=== PATIENT | male | born 1935 | race Caucasian/White ===

== ENCOUNTER 2017-06-05 17:33 | Inpatient (IN) | payer OTHER, MEDICARE ==
[~2017-06-05] VITALS: Ht 172.7 cm; Wt 86.0 kg
--- NOTE | 2017-06-05 17:45 | ED AMS/SEIZURE/WEAK/DIZZY ---
History of Present Illness General Chief Complaint: Dizziness Stated Complaint: PALPITATIONS & LIGHTHEADED Vital Signs & Intake/Output Vital Signs & Intake/Output Vital Signs Date Time Temp Pulse Resp B/P B/P Pulse O2 O2 Flow FiO2 Mean Ox Delivery Rate 06/053 97.8 112 24 131/79 96 Room Air Progress Plan of Care: Orders Procedure Date/time Status MISTAKE 06/05 1736 Active Telemetry/Lubrication Equipment Servicer 06/05 1736 Active TROPONIN LEVEL 06/05 1736 Active MAGNESIUM 06/05 1736 Active COMPREHENSIVE METABOLIC PANEL 06/05 1736 Active CBC WITHOUT DIFFERENTIAL 06/05 1736 Active EKG 06/05 1736 Active Laboratory Tests 06/05/17 1748: Sodium Pending, Potassium Pending, Chloride Pending, Carbon Dioxide Pending, Anion Gap Pending, BUN Pending, Creatinine Pending, BUN/Creatinine Ratio Pending , Glucose Pending, Calcium Pending, Magnesium Pending, Total Bilirubin Pending, AST Pending, ALT Pending, Alkaline Phosphatase Pending, Troponin I Pending, Total Protein Pending, Albumin Pending, Globulin Pending, Albumin/Globulin Ratio Pending, CBC w Diff Pending, WBC Pending, RBC Pending, Hgb Pending, Hct Pending, MCV Pending, MCH Pending, MCHC Pending, RDW Pending, Plt Count Pending, MPV Pending Departure Departure Condition: Stable Referrals: Unknown (PCP/Family) Departure Forms: Customer Survey General Discharge Information
[2017-06-05 18:00] LABS: ABSOLUTE BASOPHIL COUNT 0 /CUMM (0.0-0.2); ABSOLUTE EOSINOPHIL COUNT 0.3 /CUMM (0.0-0.7); ABSOLUTE LYMPH COUNT 1.1 /CUMM (1.2-3.4); ABSOLUTE MONOCYTE COUNT 0.4 /CUMM (0.10-0.60); BASOPHIL % 0.3 % (0.0-2.0); EOSINOPHIL % 2.8 % (0-5); GRANULOCYTE % 83.7 % (42.2-75.2); HEMATOCRIT 43.9 % (42-52); MEAN CORPUSCULAR HGB 27.7 PG (27.0-31.0); MEAN CORPUSCULAR HGB CONC 32.3 G/DL (33.0-37.0); MEAN CORPUSCULAR VOLUME 85.6 FL (80.0-94.0); MEAN PLATELET VOLUME 7.3 FL (7.4-10.4); PLATELET COUNT 275 /CUMM (130-400); RBC DISTRIBUTION WIDTH 13.9 % (11.5-14.5); RED BLOOD CELL CT 5.13 /CUMM (4.70-6.10); WHITE BLOOD CELL COUNT 10.8 /CUMM (4.8-10.8)
--- NOTE | 2017-06-05 18:09 | ED CARDIAC/CP/PALPITATIONS ---
See Addendum History of Present Illness General Chief Complaint: Dizziness Stated Complaint: PALPITATIONS & LIGHTHEADED Source: patient, family, EMS Exam Limitations: no limitations Vital Signs & Intake/Output Vital Signs & Intake/Output Vital Signs Date Time Temp Pulse Resp B/P B/P Pulse O2 O2 Flow FiO2 Mean Ox Delivery Rate 06/05 1831 128 131/79 04 1753 97.8 112 24 131/79 96 Room Air Triage Note: BIBA FROM HOME, C/O INTERMITTANT DIZZINESS AND PA;PITATIONS X A FEW DAYS, WORSE TODAY. DNEIS CHEST PAIN OR SOB. PER EMS HEART RATE WAS 80-160 (A FIB) WS GIVEN LOPRESSOR 5 MG IV. Triage Nurses Notes Reviewed? yes HPI: Patient was taking out the garbage when he had a sudden onset of feeling very lightheaded. At that time he also felt a pounding sensation in his chest. He denies any chest pain. Patient went inside and laid down. The pounding sensation one-way however he continued to feel lightheaded. He eventually took a nitroglycerin to see if that would help but there was no relief. The symptoms lasted in total approximately an hour and a half. His called 911. Patient is currently asymptomatic. He denies any chest pain or lightheadedness. There is no palpitations. There is no shortness of breath. There is no dyspnea on exertion or orthopnea. Of note patient states that he is supposed to be on 75 mg of atenolol a day but a few years ago he decreased it on his own down to 25 mg. He has informed his doctor about this and his doctor is okay with it. EMS did give him 5 mg of IV Lopressor without any change in the heart rate. Past History Travel History Traveled to [place] past 21 day No Medical History Any Pertinent Medical History? see below for history Cardiovascular: AFIB, hypertension, hyperlipidemia Respiratory: N Surgical History Surgical History: CABG, LEFT BKA Psychosocial History What is your primary language Thai Tobacco Use: Quit >30 days ago ETOH Use: denies use Family History Hx Contributory? No Review of Systems Review of Systems Constitutional: Reports: no symptoms. EENTM: Reports: no symptoms. Respiratory: Reports: no symptoms. Cardiovascular: Reports: see HPI. GI: Reports: no symptoms. Genitourinary: Reports: no symptoms. Musculoskeletal: Reports: no symptoms. Skin: Reports: no symptoms. Neurological/Psychological: Reports: see HPI. Hematologic/Endocrine: Reports: no symptoms. Immunologic/Allergic: Reports: no symptoms. All Other Systems: Reviewed and Negative Physical Exam Physical Exam General Appearance: well developed/nourished, alert, awake, moderate distress Head: atraumatic, normal appearance Eyes: Bilateral: PERRL, EOMI. Ears, Nose, Throat: normal pharynx, normal ENT inspection, hearing grossly normal Neck: normal inspection, supple, full range of motion Respiratory: normal breath sounds, chest non-tender, no respiratory distress, lungs clear Cardiovascular: tachycardia, irregularly irregular Gastrointestinal: normal bowel sounds, soft, non-tender, no organomegaly Back: normal inspection Extremities: normal inspection, normal capillary refill, normal range of motion, no edema Neurologic/Psych: no motor/sensory deficits, awake, alert, oriented x 3, normal mood/affect Skin: intact, normal color, warm/dry Lymphatic: no anterior cervical rivas Core Measures ACS in differential dx? Yes CVA/TIA Diagnosis No Sepsis Present: No Sepsis Focused Exam Completed? No Progress Differential Diagnosis: atrial fibrillation, myocarditis, pericarditis, pneumonia, pneumothorax, pulmonary embolism Plan of Care: Orders Procedure Date/time Status XRY-PORTABLE CHEST XRAY 06/05 1809 Active MISTAKE 06/05 173 Active Telemetry/Sales Assistant [employer] 06/05 173 Active TROPONIN LEVEL 06/05 1737 Complete MAGNESIUM 06/05 173 Complete COMPREHENSIVE METABOLIC PANEL 06/05 173 Complete CBC WITHOUT DIFFERENTIAL 06/05 173 Complete EKG 06/05 173 Active Current Medications Sig/Marco A Start time Last Medication Dose Stop Time Status Admin Diltiazem HCl 10 MG ONCE ONE 06/05 1900 UNVr (Cardizem) 06/05 190 Metoprolol Tartrate 5 MG ONCE ONE 06/05 1830 UNVr 06/05 (Lopressor) 06/05 183 1831 Laboratory Tests 06/05/17 1748: Anion Gap 13, Estimated GFR 41 L, BUN/Creatinine Ratio 12.5, Glucose 113 H, Calcium 8.5, Magnesium 1.8, Total Bilirubin 0.5, AST 34, ALT 25, Alkaline Phosphatase 71, Troponin I < 0.01, Total Protein 6.8, Albumin 3.8, Globulin 3.0, Albumin/Globulin Ratio 1.3, CBC w Diff NO MAN DIFF REQ, RBC 5.13, MCV 85.6, MCH 27.7, MCHC 32.3 L, RDW 13.9, MPV 7.3 L, Gran % 83.7 H, Lymphocytes % 9.8 L, Monocytes % 3.4, Eosinophils % 2.8, Basophils % 0.3, Absolute Granulocytes 9.0 H, Absolute Lymphocytes 1.1 L, Absolute Monocytes 0.4, Absolute Eosinophils 0.3 , Absolute Basophils 0 Initial ED EKG: A FIB WITH ABERINCY, RVR, NO OLD TO COMAPRE Hand-Off Endorsed To: Jake Solorio MD Endorsed Time: 1899 Pending: labs Comments: EKG faxed Dr. Lantigua. Patient is refusing anticoagulation. Patient states he is to be on anticoagulation prior to having his left BKA but once that was done they took him off the Coumadin. Patient states he had multiple complications from anticoagulation. Patient verbally understands the risks of having a stroke while he is in A. fib. Departure Departure Disposition: STILL A PATIENT Condition: Stable Clinical Impression Primary Impression: New onset a-fib Referrals: Unknown Departure Forms: Customer Survey General Discharge Information Critical Care Note Critical Care Note Critical Care Time: mins: (120 MIN)
--- NOTE | 2017-06-05 19:17 | RADIOLOGY REPORT ---
EXAMINATION: CHEST 1 VIEW CLINICAL INFORMATION: Chest pain. COMPARISON: None. TECHNIQUE: An AP view of the chest is provided. FINDINGS: The cardiac silhouette is enlarged. Intact midline sternal wires are present. The mediastinal and hilar contours are unremarkable. There is a moderate left pleural effusion with associated airspace disease.. The osseous structures are unremarkable. IMPRESSION: Cardiomegaly. Moderate left pleural effusion with associated airspace disease.
[2017-06-05] MEDS ORDERED: PRINIVIL10 M1 PO (19:47)
[2017-06-05] MEDS ORDERED: ZOCOR40 M1 PO (19:48)
[2017-06-05] MEDS ORDERED: ATENOLOL25 M1 PO (19:48)
[2017-06-05] MEDS ORDERED: ISOSORBIDE MONO60 M1 PO (19:49)
[2017-06-05] MEDS ORDERED: ASPIRIN EC81 M1 PO (19:49)
[2017-06-05] MEDS ORDERED: ADVIL200 M1 PO (19:49)
[2017-06-05] MEDS ORDERED: TUMS200 MG PO (19:50)
--- NOTE | 2017-06-05 20:09 | History & Physical ---
Placido Schulz MD 06/05/17 2009: General Information and HPI MD Statement: I have seen and personally examined NATHAN CARLIN and documented this H&P. The patient is a 82 year old M who presented with a patient stated chief complaint of palpitations. Source of Information: patient Exam Limitations: no limitations History of Present Illness: 82 year old male with past medical history significant for CAD s/p CABG (1996), PCI with stents (2001), HTN, HLD, former smoker, L BKA (2006), and possible history of atrial fibrillation, presents with sudden onset of palpitations. The patient was in his usual state of health when today, as he was carrying the garbage out of his building complex, he developed acute onset palpitations. He describes it as if his heart was beating out of his chest. The patient also reported the simultaneous sensation of feeling lightheaded and faint, and denies associated chest pain, pressure, dyspnea, nausea, or diaphoresis. The patient reports that this is the third or so time hes experienced these symptoms in the past six months. Reportedly he has previously experienced chest pressure and pain transiently with prior episodes but not today. He has chronic rhinorrhea, post nasal drip, and cough productive of clear sputum for the past five months, reportedly from winter and dry indoor air. He was taking Mucinex D but thinks this medications has worsened his palpitations, chest pressure, and lightheadedness symptoms and self discontinued this medicine over a month ago. He is now using Flonase, which is reportedly helping. He was taking 75mg of atenolol for his hypertension but apparently has taken himself down to 25mg daily on his own, which he says he has done without any problems for the past two years. He has not seen a wig comber in over ten years. He has his primary care at the [facility] (Dr. Tinsley). He has recently been taking Ibuprofen for dental pain. He also had some abdominal pain and nausea the day before attributed to something he ate and not associated with his current symptoms. In the emergency department, he was found to be in rapid atrial fibrillation and given metoprolol 5mg IV x 2 and Cardizem 10mg IVP and admitted to telemetry for further management. Allergies/Medications Allergies: Coded Allergies: No Known Allergies (06/05/17) Home Med list Aspirin (Ecotrin*) 81 MG TABLET.DR 1 TAB PO QAM HEART/BLOOD (Reported) Atenolol 25 MG TABLET 1 TAB PO QPM BP (Reported) Calcium Carbonate (TUMS) (Unknown Strength) TAB.CHEW (Unknown Dose) PO PRN GI (Reported) Ibuprofen (Advil) 200 MG CAPSULE 2 CAP PO PRN PAIN/INFLAMMATION (Reported) Isosorbide Mononitrate (Isosorbide Mononitrate ER) 60 MG TAB.ER.24H 1 TAB PO QPM HEART (Reported) Lisinopril (Prinivil) 10 MG TABLET 1 TAB PO QAM BP (Reported) Simvastatin (Zocor*) 40 MG TABLET 1 TAB PO QPM CHOLESTEROL (Reported) Compliance With Home Meds: FAIR Past History Travel History Traveled to [place] past 21 day No Medical History Cardiovascular: AFIB, hypertension, hyperlipidemia Respiratory: N Surgical History Surgical History: CABG, LEFT BKA Past Family/Social History Psychosocial History Smoking Status: Former Smoker ETOH Use: denies use Functional Ability ADLs Independent: dressing, eating, toileting, bathing. Ambulation: cane Review of Systems Review of Systems Constitutional: Denies: chills, diaphoresis, fever, malaise, weakness. EENTM: Reports: no symptoms. Cardiovascular: Reports: palpitations, peripheral edema. Denies: chest pain, syncope. Respiratory: Reports: cough, sputum production. Denies: orthopnea, short of breath. GI: Reports: abdominal pain, nausea. Denies: diarrhea, vomiting. Genitourinary: Denies: dysuria, frequency. Musculoskeletal: Reports: no symptoms. Skin: Reports: no symptoms. Neurological/Psychological: Reports: no symptoms. Hematologic/Endocrine: Reports: no symptoms. Immunologic/Allergic: Reports: no symptoms. All Other Systems: Reviewed and Negative Exam & Diagnostic Data Last 24 Hrs of Vital Signs/I&O Vital Signs Date Time Temp Pulse Resp B/P B/P Pulse O2 O2 Flow FiO2 Mean Ox Delivery Rate 06/05 2156 138 120/70 06/06 2155 97.7 138 22 120/70 95 Room Air 06/05 2154 93 Room Air Room Air 06/05 2137 98.0 109 20 136/84 96 Room Air 06/05 1917 118 18 114/74 06/05 1902 111 141/74 06/05 1831 128 131/79 04/05 1753 97.8 112 24 131/79 96 Room Air Intake & Output 06/06 0800 04 0000 06/05 1600 Intake Total 350 Output Total 50 Balance 300 Intake, IV 250 Intake, Oral 100 Output, Urine 50 Patient 85.984 kg Weight Weight Bed scale Measurement Method Physical Exam General Appearance Alert, Oriented X3, Cooperative, No Acute Distress Neck Supple, No JVD, No thryomegaly Cardiovascular irregular rhythm with 2/6 apical systolic murmur Lungs Clear to Auscultation, Normal Air Movement Abdomen Normal Bowel Sounds, Soft, No Tenderness, No Masses Extremities L BKA, RLE 2+ pitting edema up to mid gilliam Last 24 Hrs of Labs/Sameer: Laboratory Tests 06/05/17 2355: Troponin I 0.04 06/05/17 1748: Anion Gap 13, Estimated GFR 41 L, BUN/Creatinine Ratio 12.5, Glucose 113 H, Calcium 8.5, Magnesium 1.8, Total Bilirubin 0.5, AST 34, ALT 25, Alkaline Phosphatase 71, Troponin I < 0.01, Total Protein 6.8, Albumin 3.8, Globulin 3.0, Albumin/Globulin Ratio 1.3, TSH &T3 &Free T4 Intrp 3.390, CBC w Diff NO MAN DIFF REQ, RBC 5.13, MCV 85.6, MCH 27.7, MCHC 32.3 L, RDW 13.9, MPV 7.3 L, Gran % 83.7 H, Lymphocytes % 9.8 L, Monocytes % 3.4, Eosinophils % 2.8, Basophils % 0.3, Absolute Granulocytes 9.0 H, Absolute Lymphocytes 1.1 L, Absolute Monocytes 0.4, Absolute Eosinophils 0.3, Absolute Basophils 0 Diagnostic Data EKG Results atrial fibrillation with RBBB CXR Results The cardiac silhouette is enlarged. Intact midline sternal wires are present. The mediastinal and hilar contours are unremarkable. There is a moderate left pleural effusion with associated airspace disease.. The osseous structures are unremarkable. Assessment/Plan Assessment: 82 year old male with past medical history significant for CAD s/p CABG (1996), PCI with stents (2001), HTN, HLD, former smoker, L BKA (2006), and possible history of atrial fibrillation, presents with sudden onset of palpitations. Atrial fibrillation with rapid ventricular response: Given Lopressor 5mg x 2 and Cardizem 10mg IVP Continue patient's atenolol 25mg daily, was previously on 75mg daily Discussed anticoagulation, patient reluctant despite knowledge of stroke risk Start Cardizem 2.5mg/hr IV infusion for rate control Heart rate goal less than 110 beats per minutes TSH wnl CAD h/o CABG/PCI: Check serial troponins and EKGs to evaluate for myocardial ischemia Cardiology consultation Obtain old records [facility] PCI and [facility] for CABG Check an transthoracic echocardiogram Monitor on telemetry Continue aspirin, statin and beta gisela Hold ACEi Continue nitrates Elevated creatinine: Creatinine 1.6, unknown baseline Unclear if acute kidney injury or chronic kidney disease Obtain records from PCP Dr. Corea for baseline renal function Recent NSAID use Hold ACEi for now Repeat renal function in the morning Avoid nephrotoxic agents HTN: Continue atenolol HLD: Continue statin therapy Heart healthy diet DVT ppx-heparin 5000 units subcutaneous q8h Full code As Ranked By This Provider Problem List: 1. New onset a-fib Core Measures/Misc (11/17) Acute Coronary Syndrome ACS Diagnosis: No Congestive Heart Failure Congestive Heart Failure Diagnosis No Cerebrovascular Accident CVA/TIA Diagnosis: No VTE (View Protocol) VTE Risk Factors Age>40 No Mechanical VTE Prophylaxis d/t N/A MechProphylax Ordered No VTE Pharm Prophylaxis d/t NA PharmProphylax ordered Sepsis (View protocol) Sepsis Present: No [facility] 06/05/17 2017: Resident Review Statement Resident Statement: examined this patient, discussed with chemistry intern, agreed with chemistry intern Other Findings: 82-year-old male with PMH significant for HTN, HLD, PAD s/p left BKA, HF with unknown EF%, CAD s/p CABG, and chronic cough who prsented with a chief complaint of palpitation and dizziness. Earlier today the patient had palpitation as he was carrying the garbage out of his building. A few minutes later he felt lightheaded and dizzy while he was driving his car for which she decided to visit the ED for further evaluation. The patient reported to similar episode in the past 6 months which she attributes to cough medicine that was prescribed to him at that time. He denies chest pain, shortness breath, diaphoresis, or dyspnea. He denies loss of consciousness or recent sickness. On admission: Vitals BP 97.8, HR 112, BP 131/79, sat 96 on RA. Labs: No leukocytosis, no anemia, normal potassium, calcium, sodium, and magnesium. Glucose 113. Normal liver function tests. Normal TSH. Negative troponin X2. Creatinine 1.6 and GFR 41. C-xray: Moderate left pleural effusion with associated airspace disease. Assessment 82-year-old male with multiple comorbidities that significant for heart conditions who presented with multiple episodes of palpitation and dizziness and was found to be on A. fib rhythm. His heart rate was controlled with 10 mg IV Cardizem followed by 5 mg Cardizem drip. The patient require anticoagulation as per chads score however he strongly refused anticoagulation even after risk and benefits was explained in details. Creatinine was found to be elevated up to 1.6, currently is not clear if this is CALEB or CKD given no documented kidney function in the past. Problem list * A. fib * CALEB or possibly CKD * CAD, HX CABG/PCI * HTN Plan * Monitoring telemetry * Rule out ACS with serial troponin and EKG * Continue Cardizem drip at straight 5 and titrated as needed * Echocardiogram * Hold off anticoagulation as per patient preference is * Repeat renal function in the morning * Cardiology consult with Dr. Lantigua * Continue aspirin, statin and beta gisela * Continue nitrate * Hold tomasz * Hold NSAIDs and all nephrotoxic agent. -Heart healthy diet -DVT ppx-heparin 5000 units subcutaneous q8h -Full code AmericoAgatara 06/06/17 0443: Attending MD Review Statement Attending Statement Attending MD Statement: examined this patient, discuss w/resident/PA/AGRICULTURAL EQUIPMENT OPERATOR, agreed w/resident/PA/AGRICULTURAL EQUIPMENT OPERATOR, reviewed EMR data (avail), reviewed images, amended to note Attending Assessment/Plan: CC: lightheaded PMH: CAD S/P CABG in 1996, S/P stent 2004, repeat cath showed persistent severe CAD not amendable for treatment, questionable rhythm abnormality in the past, HTN, HLD, left BKA, possible CKD Patient is very good historian he came in ER when his insisted to go for evaluation after his light headedness episode. This morning patient noticed lightheadedness and palpitations 2 times, 10 minutes apart. He was planning to watch it at home but his insisted to go to ER. Patient states that he has been having similar symptoms in the past, mostly at nighttime when he is getting up to go to bathroom he feels lightheaded, at one incidence he passed out and woke up on the floor, at other incidence he had associated chest pain going to his left arm, he took nitroglycerin and pain subsided. Either of these episodes patient did not go to ER. He attributed the symptoms to Mucinex D, stopped taking that medication approximately 10 to 15 days back and thought symptoms had resolved but it recurred again today. Patient denied any associated chest pain today, diaphoresis, nausea, vomiting, arm pain, actual passing out. Otherwise complete ROS unremarkable. Patient had decreased his dose of atenolol on his own few months back. Vitals: Afebrile, pulse in 120s, RR 24, blood pressure 131/79, saturating well on room air. On exam: A O 3, cooperative, no acute distress, neck supple, JVD normal, no lymphadenopathy, mucosa moist, no focal neurological deficit, left BKA, no dependent edema, no obvious skin rashes or inflammation CVS: S1-S2, irregular, tachycardia. RS: Clear to auscultate bilaterally. Abdomen: Soft, NT, ND, bowel sounds present. CXR: Cardiomegaly. Moderate left pleural effusion with associated airspace disease. Assessment and plan 82-year-old male with extensive past medical history presented in ER after 2 episodes of palpitations and lightheadedness, no associated chest pain, syncope, diaphoresis. Patient had been having similar episodes intermittently since last few months, mostly at nighttime when he is getting up to go to bathroom he feels lightheaded, at one incidence he passed out and woke up on the floor, at other incidence he had associated chest pain going to his left arm, he took nitroglycerin and pain subsided. Either of these episodes patient did not go to ER. Examination unremarkable but patient was tachycardic with A. fib with RVR on ECG. No overt signs of heart failure. Patient was unaware of diagnosis of A. fib so far, we do not have any comparison ECG, but this appears new onset atrial fibrillation. Patient agreed for rate control medication, but refused anticoagulation. Risks and benefits anticoagulation was discussed with him. We will get records from [facility], for his previous cardiac history. + A. fib with RVR + Hx of CAD S/P CABG in 1996, S/P stent 2004, repeat cath showed persistent severe CAD not amendable for treatment, questionable rhythm abnormality in the past, HTN, HLD, left BKA, possible CKD - Admit to telemetry - Continuous telemetry monitoring - Serial troponin and ECGs - Start Cardizem drip, titrate to heart rate 110 - 2-D echocardiogram in a.m. - Check TSH - Cardiology consult in a.m. - Obtain records from [facility] - No anticoagulation - Continue other home medications
[2017-06-05 21:56] VITALS: BP 120/70
[2017-06-05 21:57] VITALS: BP 120/70
--- NOTE | 2017-06-06 04:44 | Admission Certification ---
Admission Certification Certification Statement - As attending physician, I certify that at the time of - admission, based on clinical presentation, severity of - symptoms, need for further diagnostic testing and - therapeutic interventions, and risk of adverse outcomes - without in-hospital treatment, in my clinical assessment, - this patient requires an acute hospital stay for a minimum - of two nights or longer. I have also considered psychsocial - factors such as support system, advanced age, financial - issues, cognitive issues, and failed out-patient treatments, - past re-admission history, safety of patient, and lack of - compliance as applicable. Specific rationale supporting this admission is: New onset A. fib with RVR
--- NOTE | 2017-06-06 07:18 | PN- Housestaff ---
Patric SETH,[facility] 06/06/17 0718: Subjective Follow-up For: A Fib with RVR Tele-Events Since Last Visit: RATE 45-71 NSR Subjective: Mr Oneill was seen and examined this morning. He is resting comfortably in bed. Denies any issues overnight. States that he was unable to get much sleep owing to multiple interruptions. Does state that heart rate appears better controlled and is currently asymptomatic. Denies any fever, chills, nausea, vomiting. Denies any lightheadedness or palpitations. Mr Estrada has ordered breakfast this a.m. and is currently waiting for it to be delivered. Review of Systems Constitutional: Reports: see HPI. EENTM: Reports: see HPI. Objective Last 24 Hrs of Vital Signs/I&O Vital Signs Date Time Temp Pulse Resp B/P B/P Pulse O2 O2 Flow FiO2 Mean Ox Delivery Rate 06/05 2156 138 120/70 06/06 2155 97.7 138 22 120/70 95 Room Air 06/05 2154 93 Room Air Room Air 06/05 2137 98.0 109 20 136/84 96 Room Air 06/05 1917 118 18 114/74 06/05 1902 111 141/74 06/05 1831 128 131/79 06/05 1753 97.8 112 24 131/79 96 Room Air Intake & Output 06/06 1600 06/06 0800 06/06 0000 Intake Total 100 350 Output Total 200 50 Balance -100 300 Intake, IV 250 Intake, Oral 100 100 Output, Urine 200 50 Patient 85.984 kg Weight Weight Bed scale Measurement Method Physical Exam General Appearance: Alert, Oriented X3, Cooperative Skin: No Rashes Cardiovascular: Regular Rate, Normal S1, Normal S2 Lungs: Clear to Auscultation, Normal Air Movement Abdomen: Normal Bowel Sounds, Soft Neurological: Normal Speech Extremities: No Edema, Left BKA. Stump on Vascular: Normal Pulses Current Medications: Current Medications Sig/Marco A Start time Last Medication Dose Route Stop Time Status Admin Amiodarone HCl 400 MG BID 06/06 1000 AC PO Apixaban 2.5 MG BID 06/06 1000 AC PO Aspirin Buffered 81 MG QAM 06/06 1000 AC PO Atenolol 25 MG QPM 06/06 2200 CAN PO Atorvastatin Calcium 20 MG 1700 06/06 1700 AC PO Diltiazem HCl 125 MG Q24H 06/05 2315 DC 06/05 Dextrose/Water 100 ML IV 2348 Diltiazem HCl 0 .STK-MED ONE 06/05 1916 DC .ROUTE Diltiazem HCl 10 MG ONCE ONE 06/05 1900 DC 06/05 IV 06/05 190 191 Heparin Sodium 5,000 UNIT Q8 06/06 0600 DC 06/06 (Porcine) SC 0525 Isosorbide 60 MG QPM 06/06 2200 AC Mononitrate PO Lisinopril 10 MG QAM 06/06 1000 AC PO Metoprolol Tartrate 0 .STK-MED ONE 06/05 183 DC IV Metoprolol Tartrate 5 MG ONCE ONE 06/05 1830 DC 06/05 IV 06/05 183 183 Last 24 Hrs of Lab/Sameer Results Last 24 Hrs of Labs/Mics: Laboratory Tests 06/06/17 0622: Sodium Cancelled, Potassium Cancelled, Chloride Cancelled, Carbon Dioxide Cancelled, Anion Gap Cancelled, BUN Cancelled, Creatinine Cancelled, BUN/ Creatinine Ratio Cancelled 06/06/17 0622: Anion Gap 15, Estimated GFR 41 L, BUN/Creatinine Ratio 13.8, Troponin I 0.06 06/05/17 2355: Troponin I 0.04 06/05/17 1748: Anion Gap 13, Estimated GFR 41 L, BUN/Creatinine Ratio 12.5, Glucose 113 H, Calcium 8.5, Magnesium 1.8, Total Bilirubin 0.5, AST 34, ALT 25, Alkaline Phosphatase 71, Troponin I < 0.01, Total Protein 6.8, Albumin 3.8, Globulin 3.0, Albumin/Globulin Ratio 1.3, TSH &T3 &Free T4 Intrp 3.390, CBC w Diff NO MAN DIFF REQ, RBC 5.13, MCV 85.6, MCH 27.7, MCHC 32.3 L, RDW 13.9, MPV 7.3 L, Gran % 83.7 H, Lymphocytes % 9.8 L, Monocytes % 3.4, Eosinophils % 2.8, Basophils % 0.3, Absolute Granulocytes 9.0 H, Absolute Lymphocytes 1.1 L, Absolute Monocytes 0.4, Absolute Eosinophils 0.3, Absolute Basophils 0 Assessment/Plan Assessment: 82 year old male with past medical history significant for CAD s/p CABG (1996), PCI with stents (2002), HTN, HLD, former smoker, L BKA (2006), and possible history of atrial fibrillation, presents with sudden onset of palpitations. Atrial fibrillation with rapid ventricular response: Given Lopressor 5mg x 2 and Cardizem 10mg IVP Discussed anticoagulation, patient reluctant despite knowledge of stroke risk Start Cardizem 2.5mg/hr IV infusion for rate control, well controlled and appears over the course of the morning, he converted back to NSR. * Will attempt to keep rate in Normal Sinus. Amidarone 400 mg BID for 14 days. Then to be reduced to 200 mg BID. * Eliquis 2.5 mg BID, patient is agreeable to NOAC. Heart rate goal less than 110 beats per minutes TSH wnl CAD h/o CABG/PCI: Obtain old records both [facility] PCI and [facility] for CABG Check an transthoracic echocardiogram Monitor on telemetry Continue aspirin, statin and beta gisela Continue nitrates Elevated creatinine: Creatinine 1.6, unknown baseline Unclear if acute kidney injury or chronic kidney disease Obtain records from PCP Dr. Corea for baseline renal function Recent NSAID use Avoid nephrotoxic agents * Repear BEP 06/07/2017. HTN: Continue atenolol, to be discontinued, amiodarone can cause a decrease in blood pressure hence would air on the side of caution and discontinue atenolol. HLD: Continue statin therapy Heart healthy diet DVT ppx-transitioned to Eliquis. Full code Problem List: 1. New onset a-fib Pain Ratin Pain Location: No Pain Endorsed Pain Goal: Remain pain free Pain Plan: Tylenol PRN Tomorrow's Labs & Rationales: BEP: monitor Creatinine in the setting of ?Selvin Marcial 06/06/17 1049: Attending MD Review Statement Attending Statement Attending MD Statement: examined this patient, discuss w/resident/PA/TELEPHONE AD TAKER, agreed w/resident/PA/TELEPHONE AD TAKER, discussed with family, reviewed EMR data (avail), discussed with nursing, discussed with case mgmt, reviewed images, amended to note Attending Assessment/Plan: Patient here with afib uncontrolled with light headedness. Serial cardiac enzymes remain negative so far. Cardiology consulted and recommend obtaining previosu cardiac cath records from [place]. Patient is started on PO amiodarone and eliquis for a/c. Cont current care..
--- NOTE | 2017-06-06 09:32 | Cons- Cardiology ---
General Information and HPI Consulting Request Date of Consult: 06/06/17 Requested By: Yoan Driscoll MD History of Present Illness: Mr. Oneill is an 82 year old male with history of hypertension, dyslipidemia and coronary artery disease status post CABG in 1996 with stent placement in 2001. Over the past two months the patient has noted bouts of chest discomfort, lightheadedness and palpitations. He presented to the ER with a severe episode of rapid palpitations and was found to be in atrial fibrillation with increased heart rate wtih a bundle branch block. The patient does have a history of non- compliance with medications and office follow up. Allergies/Medications Allergies: Coded Allergies: No Known Allergies (06/05/17) Home Med List: Aspirin (Ecotrin*) 81 MG TABLET.DR 1 TAB PO QAM HEART/BLOOD (Reported) Atenolol 25 MG TABLET 1 TAB PO QPM BP (Reported) Calcium Carbonate (TUMS) (Unknown Strength) TAB.CHEW (Unknown Dose) PO PRN GI (Reported) Ibuprofen (Advil) 200 MG CAPSULE 2 CAP PO PRN PAIN/INFLAMMATION (Reported) Isosorbide Mononitrate (Isosorbide Mononitrate ER) 60 MG TAB.ER.24H 1 TAB PO QPM HEART (Reported) Lisinopril (Prinivil) 10 MG TABLET 1 TAB PO QAM BP (Reported) Simvastatin (Zocor*) 40 MG TABLET 1 TAB PO QPM CHOLESTEROL (Reported) Review of Systems Review of Systems: dental pain Past History Travel History Traveled to [place] past 21 day No Medical History Blood Transfusion Hx: No Neurological: dizziness EENT: NONE Cardiovascular: AFIB, hypertension, hyperlipidemia Respiratory: NONE Gastrointestinal: ACID REFLUX Hepatic: NONE Renal: NONE Musculoskeletal: falls Psychiatric: NONE Endocrine: NONE Blood Disorders: NONE Cancer(s): NONE 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 Home Smoking Status: Former Smoker ETOH Use: denies use Functional Ability ADLs Independent: dressing, eating, toileting, bathing. Ambulation: cane Exam & Diagnostic Data Vital Signs and I&O Vital Signs Date Time Temp Pulse Resp B/P B/P Pulse O2 O2 Flow FiO2 Mean Ox Delivery Rate 06/05 2156 138 120/70 06/06 2155 97.7 138 22 120/70 95 Room Air 04/05 2155 93 Room Air Room Air 06/058 98.0 109 20 136/84 96 Room Air 06/05 1917 118 18 114/74 06/05 1902 111 141/74 06/05 1831 128 131/79 06/05 1753 97.8 112 24 131/79 96 Room Air Intake & Output 06/06 1600 06/06 0800 04 0000 / 1600 06/05 0800 06/05 0000 Intake Total 100 350 Output Total 200 50 Balance -100 300 Intake, IV 250 Intake, Oral 100 100 Output, Urine 200 50 Patient 190 lb Weight Weight Bed scale Measurement Method Physical Exam: General: WD/obese male in NAD; alert and oriented x 3 HEENT: NC/AT, PERRL, EOMI Neck: no JVD, no carotid bruit Heart: RRR with ectopy and 2/6 systolic murmur Lungs: clear bilaterally ABdomen: soft, obese, NT, +ve bowel sounds Extremities: no edema, left BKA Assessment/Plan Assessment/Plan * This patient reportedly has a low EF but the details are not currently known. Obtain old records from the [place]. In addition to his echo report please find his latest cardiac catheterization from the [place]. * This patient has atrial fibrillation with increased heart rate. I suspect he has frequent paroxysms of this dysrhythmia which ultimately results in lightheadedness and at times chest pain. We will obtain a TSH, free T4, echocardiogram and cardiac enzymes. I think it is prudent to try and maintain a sinus rhythm in this patient who does not tolerate tachycardia well and is reluctant to be on chronic anticoagulation. In addition, he does have a low EF and renal dysfunction. Begin Amiodarone 400mg BID. We will load him for two week and then decrease the dose to 200mg daily. I do believe he should still be on chronic anticoagulation with Eliquis 2.5mg BID if he is willing to take it. Stop Atenolol. * This patient has evidence of myocardial ischemia. I am suspicious that his dental pain may be cardiac pain radiating toward his jaw. We will obtain his old cath report to determine if he is a reasonable candidate for revascularization. We will also consider a stess test. For now continue his Isosorbide, aspirin at 81mg daily, ACEI and statin. Consult Acknowledgment - Thank you for your consult request.
--- NOTE | 2017-06-06 10:42 | Patient Discharge Instructions ---
Discharge Instructions General Discharge Information You were seen/treated for: Atrial fibrillation. Special Instructions: Please follow-up with your primary care physician in 3-5 days. Please inform your primary care physician of the new medications added to your regimen. Please follow-up with her wholesale buyer within 7 days. We have provided you referral. Should you feel or experience any side effects from these medications please report to the emergency department. Should you feel any fever, chills, nausea, vomiting, come back to the emergency department. Diet Recommended Diet: Heart Healthy Activity Activity Self Limited: Yes (As Tolerated) Acute Coronary Syndrome Inclusion Criteria At DC or during hospital stay patient has or had the following: ACS DIAGNOSIS No Discharge Core Measures Meds if any: Prescribed or Continued at Discharge Meds if any: NOT Prescribed or Continued at Discharge Congestive Heart Failure Inclusion Criteria At DC or during hospital stay patient has or had the following: CHF DIAGNOSIS No Discharge Core Measures Meds if any: Prescribed or Continued at Discharge Meds if any: NOT Prescribed or Continued at Discharge Cerebrovascular accident Inclusion Criteria At DC or during hospital stay patient has or had the following: CVA/TIA Diagnosis No Discharge Core Measures Meds if any: Prescribed or Continued at Discharge Meds if any: NOT Prescribed or Continued at Discharge Venous thromboembolism Inclusion Criteria VTE Diagnosis No VTE Type NONE VTE Confirmed by (Test) NONE Discharge Core Measures - Per Current guidelines, there needs to be overlap - treatment for the first 5 days of Warfarin therapy. - If discharged on Warfarin prior to 5 days of - overlap therapy, the patient will need to be - assessed for post discharge needs including - *Post discharge parental anticoagulation - *Warfarin and/or parental anticoagulation education - *Follow up date to check INR post discharge At least 5 days overlap therapy as Inpatient No Meds if any: Prescribed or Continued at Discharge Note: Overlap Therapy is Warfarin and Anticoagulant Meds if any: NOT Prescribed or Continued at Discharge
[2017-06-06] MEDS ORDERED: AMIODARONE HCL200 M1 PO (10:56)
[2017-06-06] MEDS ORDERED: ELIQUIS2.5 M1 PO (10:56)
[2017-06-06 15:20] VITALS: BP 104/70; BP 1116/54
--- NOTE | 2017-06-06 17:28 | Discharge Summary ---
Visit Information Visit Dates Admission Date: 06/05/17 Discharge Date: 06/07/17 Hospital Course Course Attending Physician: Selvin Morales MD Primary Care Physician: Martita SETH,[facility] Course: Mr Oneill is an 82 year old male with past medical history significant for CAD s/p CABG (1996), PCI with stents (2001), HTN, HLD, former smoker, L BKA (2006), and possible history of atrial fibrillation, presents with sudden onset of palpitations. At the time of admission, the patients vitals T: 97.8, IA: 112, RR: 24. BP: 131/79, 96% on RA. He was admitted on the telemetry service and managed for the following issues: Atrial fibrillation with rapid ventricular response: Given Lopressor 5mg x 2 and Cardizem 10mg IVP Discussed anticoagulation, patient reluctant despite knowledge of stroke risk Start Cardizem 2.5mg/hr IV infusion for rate control, well controlled and appears over the course of the morning, he converted back to NSR. * Will attempt to keep rate in Normal Sinus. Amidarone 400 mg BID for 14 days. Then to be reduced to 200 mg BID. * Eliquis 2.5 mg BID, patient is agreeable to NOAC. Heart rate goal less than 110 beats per minutes TSH wnl CAD h/o CABG/PCI: Obtain old records both [facility] PCI and [facility] for CABG Check an transthoracic echocardiogram Monitor on telemetry Continue aspirin, statin and beta gisela Continue nitrates Elevated creatinine: Creatinine 1.6, unknown baseline Unclear if acute kidney injury or chronic kidney disease Obtain records from PCP Dr. Corea for baseline renal function Recent NSAID use Avoid nephrotoxic agents * Repear BEP 06/07/2017. HTN: After initiating Continue atenolol, to be discontinued, amiodarone can cause a decrease in blood pressure hence would air on the side of caution and discontinue atenolol. HLD: Patient was continued on a statin. Heart healthy diet DVT ppx-transitioned to Eliquis. Patient was a full code over the course of the admission. Allergies: Coded Allergies: No Known Allergies (06/05/17) Pertinent Lab Results: SERVICE DATE: 06/05/17 EXAM TYPE: CARD - ECHO (COMPLETE) W/CONTRAST CONCLUSIONS 1. Severely decreased EF of 25-30% with regional wall motion abnormalities as noted above. 2. Trace mitral regurgitation. 3. Trace tricuspid regurgitation. 4. Trace aortic regurgitation. 5. Trace pulmonic regurgitation. 6. Mild pulmonary hypertension. Norman Lantigua M.D. SERVICE DATE: 06/05/17 EXAM TYPE: RAD - XRY-PORTABLE CHEST XRAY IMPRESSION: Cardiomegaly. Moderate left pleural effusion with associated airspace disease. DICTATED BY: Zhao Young MD Disposition Summary Disposition Principal Diagnosis: A Fib with RVR Additional Diagnosis: HTN Elevated Cr. ? CALEB Discharge Disposition: home or self care Discharge Instructions General Discharge Information Code Status: Full Code Patient's Diet: Heart Healthy Patient's Activity: As Tolerated Follow-Up Instructions/Appts: Please follow-up with your primary care physician in 3-5 days. Please inform your primary care physician of the new medications added to your regimen. Please follow-up with her soap slabber within 7 days. We have provided you referral. Should you feel or experience any side effects from these medications please report to the emergency department. Should you feel any fever, chills, nausea, vomiting, come back to the emergency department. Medications at Discharge Discharge Medications: Stop taking the following medications: Atenolol (Atenolol) 25 MG TABLET ORAL Every night Continue taking these medications: Lisinopril (Prinivil) 10 MG TABLET 1 Tablet ORAL Every Morning Comments: Last Taken: 06/06/17 Time:12PM Simvastatin (Zocor*) 40 MG TABLET 1 Tablet ORAL Every night Comments: GIVEN ATORVASTATIN (LIPITOR) 20MG [facility] Last Taken: 06/06/17 Time:4PM Isosorbide Mononitrate (Isosorbide Mononitrate ER) 60 MG TAB.ER.24H 1 Tablet ORAL Every night Comments: Last Taken: 06/06/17 Time:1OPM Aspirin (Ecotrin*) 81 MG TABLET.DR 1 Tablet ORAL Every Morning Comments: Last Taken: 06/07/17 Time:0930 Ibuprofen (Advil) 200 MG CAPSULE 2 Capsule ORAL as needed for PAIN/INFLAMMATION Calcium Carbonate (TUMS) (Unknown Strength) TAB.CHEW Unknown Dose ORAL as needed for GI Comments: Last Taken: 06/06/17 Time:4:15PM Start taking the following new medications: Apixaban (Eliquis) 2.5 MG TABLET 2.5 Milligram ORAL TWICE DAILY Qty = 60 No Refills Instructions: . Comments: Last Taken: 06/07/17 Time:929 Amiodarone (Cordarone) 200 MG TAB 0 ORAL SEE INSTRUCTIONS Qty = 30 No Refills Instructions: .From 06/07 to 06/21, take two tab twice per day From 06/22. Take One Tab daily Comments: Last Taken: 06/07/17 Time:929 Copies To: Martita SETH,Jl [facility]oya; Grzegorz SETH PHD,Norman Lee
[2017-06-06 22:00] VITALS: BP 134/72
[2017-06-07 06:51] VITALS: BP 128/70
--- NOTE | 2017-06-07 08:44 | ECHOCARDIOGRAM REPORT ---
NATHAN CARLIN Age: 82 : 1935 Gender: M Exam Date: 06/06/2017 12:47 Exam Location: 1 [address] Ht (in): 68 Wt (lb): 190 BSA: 2.05 BP: 120 / 70 Ordering Physician: Briseida Rodriguez MD Referring Physician: Briseida Rodriguez MD Technologist: Gagandeep Rasmussen [facility] Room Number: 174-2 Indications: AFIB/FLUTTER Rhythm: Atrial fibrillation Technical Quality: technically limited with contrast FINDINGS Left Ventricle Normal left ventricular size and wall thickness. Severely decreased systolic function with anteroseptal, inferoseptal and apical akinesis superimposed on global hypokinesis. The ejection fraction is visually estimated at 25-30%. Right Ventricle The right ventricle is normal in size and function. Right Atrium The right atrium is normal in size. Left Atrium The left atrium is normal in size. The interatrial septum is intact. Mitral Valve The mitral valve is normal in structure and function. There is trace mitral regurgitation. Aortic Valve Structurally normal aortic valve without significant sclerosis or stenosis. There is trace aortic regurgitation. Tricuspid Valve The tricuspid valve is normal in structure and function. There is trace tricuspid regurgitation. Pulmonary artery systolic pressure is mildly elevated. Pulmonic Valve Structurally normal pulmonic valve. There is trace pulmonic regurgitation. Pericardium Normal pericardium without effusion. No pleural effusion. Great Vessels Normal aortic root dimension. The aortic arch and great vessels are well seen and are normal. CONCLUSIONS 1. Severely decreased EF of 25-30% with regional wall motion abnormalities as noted above. 2. Trace mitral regurgitation. 3. Trace tricuspid regurgitation. 4. Trace aortic regurgitation. 5. Trace pulmonic regurgitation. 6. Mild pulmonary hypertension. Norman Lantigua M.D. (Electronically Signed) Final Date: 07 June 2017 08:44 MEASUREMENTS (Male / Female) Normal Values 2D ECHO LV Diastolic Diameter PLAX 6.7 cm 4.2 - 5.9 / 3.9 - 5.3 cm LV Systolic Diameter PLAX 5.8 cm 2.1 - 4.0 cm LV Fractional Shortening PLAX 13.4 % 25 - 46 % LV Ejection Fraction 2D Teich 28.0 % IVS Diastolic Thickness 1.0 cm LVPW Diastolic Thickness 1.0 cm LV Relative Wall Thickness 0.3 LVOT Diameter 2.0 cm Aortic Root Diameter 2.8 cm LA Systolic Diameter LX 4.0 cm 3.0 - 4.0 / 2.7 - 3.8 cm LA Volume 70.0 cm 18 - 58 / 22 - 52 cm DOPPLER AV Peak Velocity 130.0 cm/s AV Peak Gradient 6.8 mmHg AV Mean Velocity 85.7 cm/s AV Mean Gradient 3.0 mmHg AV Velocity Time Integral 27.2 cm LVOT Peak Velocity 67.7 cm/s LVOT Peak Gradient 1.8 mmHg LVOT Mean Velocity 44.7 cm/s LVOT Mean Gradient 1.0 mmHg LVOT Velocity Time Integral 16.6 cm LVOT Stroke Volume 52.2 cm AV Area Cont Eq vti 1.9 cm AV Area Cont Eq pk 1.6 cm MV Peak Velocity 125.0 cm/s MV Peak Gradient 6.3 mmHg MV Mean Velocity 70.1 cm/s MV Mean Gradient 2.0 mmHg Mitral E Point Velocity 108.0 cm/s Mitral A Point Velocity 76.5 cm/s Mitral E to A Ratio 1.4 MV PHT Velocity 136.0 cm/s MV Deceleration Gonzales 1145.0 cm/s MV Pressure Half Time 35.6 ms MV Area PHT 6.2 cm MV Deceleration Time 194.0 ms TR Peak Velocity 319.0 cm/s TR Peak Gradient 40.7 mmHg Right Atrial Pressure 10.0 mmHg Pulmonary Artery Systolic Pressu 50.7 mmHg Right Ventricular Systolic Press 50.7 mmHg PV Peak Velocity 78.6 cm/s PV Peak Gradient 2.5 mmHg PV Mean Velocity 53.1 cm/s PV Mean Gradient 1.0 mmHg PV Velocity Time Integral 15.3 cm LV E' Lateral Velocity 5.6 cm/s Mitral E to LV E' Lateral Ratio 19.4
--- NOTE | 2017-06-07 08:49 | PN- Housestaff ---
Sabrina Montana 06/07/17 0848: Subjective Follow-up For: David monroe with a branch block Complaints: no complaints Tele-Events Since Last Visit: Sinus rhythm with first-degree AV block and bundle branch block, PVCs, heart rate ranges from 69-85 Subjective: Patient was seen and examined morning. He was sitting comfortably in chair without any significant complaints. He denied any chest pain or palpitations. There were no overnight significant telemetry events were noted. Patient was insisted to be discharged home today. Review of Systems Constitutional: Denies: diaphoresis. EENTM: Denies: double vision. Cardiovascular: Denies: edema. Respiratory: Denies: cough, hemoptysis. Gastrointestinal: Denies: bloating, diarrhea. Genitourinary: Denies: dysuria, hematuria. Objective Last 24 Hrs of Vital Signs/I&O Vital Signs Date Time Temp Pulse Resp B/P B/P Pulse O2 O2 Flow FiO2 Mean Ox Delivery Rate 06/07 924 63 112/48 / 0923 63 112/48 / 0651 98.2 64 20 128/70 93 Room Air / 2200 97.7 70 18 134/72 94 04/06 2103 70 134/72 04/06 2102 70 134/72 04/06 1520 97.8 70 20 1116/54 94 04/06 1152 62 120/70 04/06 1151 62 120/70 Physical Exam General Appearance: Alert, Oriented X3, Cooperative, No Acute Distress Cardiovascular: Regular Rate, Normal S2 Lungs: Normal Air Movement Abdomen: Soft, No Tenderness Neurological: Normal Speech Extremities: No Clubbing, No Cyanosis Current Medications: Current Medications Sig/Marco A Start time Last Medication Dose Route Stop Time Status Admin Amiodarone HCl 400 MG BID 06/06 1000 AC 06/07 PO 0923 Apixaban 2.5 MG BID / 1000 AC 06/07 PO 0924 Aspirin Buffered 81 MG QAM / 1000 AC 06/07 PO 0924 Atorvastatin Calcium 20 MG 1700 / 1700 AC 04/ PO 1614 Calcium Carbonate 500 MG ONCE ONE 06/06 2130 DC / PO 06/06 213 2118 Isosorbide 60 MG QPM / 2200 AC / Mononitrate PO 210 Lisinopril 10 MG QAM 1000 AC 06/06 PO 1151 Patient Medication 1 ED ONE ONE 06/06 1515 [facility] ED 06/06 1516 Last 24 Hrs of Lab/Sameer Results Last 24 Hrs of Labs/Mics: Laboratory Tests 06/07/17 0630: Anion Gap 12, Estimated GFR 41 L, BUN/Creatinine Ratio 18.8 Assessment/Plan Assessment: Patient is 82-year-old gentleman with past medical history significant for CAD status post CABG, PCI with stent placement, dyslipidemia, hypertension admitted with palpitations and lightheadedness and found to be in atrial fibrillation most likely new onset A. fib. Patient was admitted on telemetry floor and following issues were addressed Problem #1 new onset atrial fibrillation along with palpitations and tachycardia Patient was started on loading dose of amiodarone 200 mg twice a day which she is tolerating well and his heart rate is been reasonably controlled. Cardiology is on board Old records from [place] and [place] will be obtained We'll continue his aspirin and statins. Patient was also started on Eliquis 2.5 mg twice a day Problem #2 history of hypertension and dyslipidemia We will continue his home medications Problem #3 history of CAD status post CABG and PCI status post stent placement We will continue aspirin and Imdur Problem List: 1. New onset a-fib Pain Ratin Pain Location: Not applicable Pain Goal: Remain pain free Pain Plan: Tylenol Tomorrow's Labs & Rationales: Complete blood count, basic electrolyte panel Selvin Morales 06/07/17 1008: Attending MD Review Statement Attending Statement Attending MD Statement: examined this patient, discuss w/resident/PA/USABILITY STRATEGIST, agreed w/resident/PA/USABILITY STRATEGIST, discussed with family, reviewed EMR data (avail), discussed with nursing, discussed with case mgmt, reviewed images, amended to note Attending Assessment/Plan: Patient here with afib uncontrolled with light headedness. Serial cardiac enzymes remain negative so far. Cardiology consulted and recommend obtaining previous cardiac cath records from [place]. Patient is started on PO amiodarone and eliquis for a/c. Plan for stress test i/p vs o/p as per cardiology. Monitor heart rate and hemodynamcis.
--- NOTE | 2017-06-07 13:02 | PN- Cardiology ---
See Addendum Subjective Subjective: Patient reports that he is feeling well. He converted to sinus rhythm. No further palpitations or chest pain. No shortness of breath. No diaphoresis. No further lightheadedness or dizziness. Objective Vital Signs and I&Os Vital Signs Date Time Temp Pulse Resp B/P B/P Pulse O2 O2 Flow FiO2 Mean Ox Delivery Rate 06/07 924 63 112/48 06/07 0923 63 112/48 06/07 0651 98.2 64 20 128/70 93 Room Air 06/06 2200 97.7 70 18 134/72 94 / 2103 70 134/72 / 2102 70 134/72 06/06 1520 97.8 70 20 1116/54 94 Intake & Output 06/07 1600 06/07 0806/07 0000 06/06 1600 06/06 0800 06/06 0000 Intake Total 620 100 350 Output Total 200 50 Balance 620 -100 300 Intake, IV 20 250 Intake, Oral 600 100 100 Output, Urine 200 50 Patient 190 lb Weight Weight Bed scale Measurement Method Physical Exam: Gen: NAD HEENT: normal Lungs: clear to auscultation, normal resp. effort Heart: RRR, S1, S2, 2/6 systolic murmur Abdomen: Soft, nontender, no masses Extremities: No clubbing, cyanosis, or edema. Neuro: Alert and oriented x 3, cranial nerves intact Current Medications: Current Medications Sig/Marco A Start time Last Medication Dose Route Stop Time Status Admin Amiodarone HCl 400 MG BID 06/06 1000 AC 06/07 PO 0923 Apixaban 2.5 MG BID 06/06 1000 AC 06/07 PO 0924 Aspirin Buffered 81 MG QAM / 1000 AC / PO 0924 Atorvastatin Calcium 20 MG 1700 / 1700 AC 04/ PO 1614 Calcium Carbonate 500 MG ONCE ONE 06/06 2130 DC / PO 06/06 213 2118 Isosorbide 60 MG QPM 06/06 2200 AC 04/ Mononitrate PO 2102 Lisinopril 10 MG QAM / 1000 AC / PO 1151 Patient Medication 1 ED ONE ONE 06/06 1515 DC Teaching ED 06/06 1516 Results Last 48 Hrs of Labs/Mics: Laboratory Tests 06/07/17 0630: Anion Gap 12, Estimated GFR 41 L, BUN/Creatinine Ratio 18.8 06/06/17 0622: Sodium Cancelled, Potassium Cancelled, Chloride Cancelled, Carbon Dioxide Cancelled, Anion Gap Cancelled, BUN Cancelled, Creatinine Cancelled, BUN/ Creatinine Ratio Cancelled 06/06/17 0622: Anion Gap 15, Estimated GFR 41 L, BUN/Creatinine Ratio 13.8, Troponin I 0.06 06/05/17 2355: Troponin I 0.04 06/05/17 1748: Anion Gap 13, Estimated GFR 41 L, BUN/Creatinine Ratio 12.5, Glucose 113 H, Calcium 8.5, Magnesium 1.8, Total Bilirubin 0.5, AST 34, ALT 25, Alkaline Phosphatase 71, Troponin I < 0.01, Total Protein 6.8, Albumin 3.8, Globulin 3.0, Albumin/Globulin Ratio 1.3, TSH &T3 &Free T4 Intrp 3.390, CBC w Diff NO MAN DIFF REQ, RBC 5.13, MCV 85.6, MCH 27.7, MCHC 32.3 L, RDW 13.9, MPV 7.3 L, Gran % 83.7 H, Lymphocytes % 9.8 L, Monocytes % 3.4, Eosinophils % 2.8, Basophils % 0.3, Absolute Granulocytes 9.0 H, Absolute Lymphocytes 1.1 L, Absolute Monocytes 0.4, Absolute Eosinophils 0.3, Absolute Basophils 0 Recent Imaging Studies: Echocardiogram 06/07/17: 1. Severely decreased EF of 25-30% with regional wall motion abnormalities as noted above. 2. Trace mitral regurgitation. 3. Trace tricuspid regurgitation. 4. Trace aortic regurgitation. 5. Trace pulmonic regurgitation. 6. Mild pulmonary hypertension. Assessment/Plan Assessment/Plan Assessment: 1. Paroxysmal atrial fibrillation converted to sinus 2. Left ventricular systolic dysfunction, with LVEF 25-30% 3. CAD, status post CABG Plan: * Continue Eliquis 2.5 mg p.o. twice daily * Continue low-dose aspirin * Continue other cardiac medication * Okay for discharge from cardiac standpoint * Follow up with Dr. Bar within 1 week Continue telemetry? Yes
[2017-06-07 14:24] VITALS: BP 116/58
== END 2017-06-07 15:15 | DRG 309 ==
LOC: DELPENDDIS → ERH 17:33 → 1NO 19:17 → ERHI 19:17 → ENRESERV 20:06 → ENTRNSPT 20:59 → EDTRNSPTSTS 21:19 → 1NO 21:29 → CMPTRNSPT 21:40 → 1NO 06-06 11:31 → ENPENDDIS 06-06 15:13 → 1NO 06-06 16:04 → ENPENDDIS 06-07 14:05 → 1NO 06-07 15:15
PROVIDERS: Physician Assistant Medical
DX: I48.91 Unspecified atrial fibrillation (principal); I50.22 Chronic systolic (congestive) heart failure; I27.20 Pulmonary hypertension, unspecified; I11.0 Hypertensive heart disease with heart failure; I25.9 Chronic ischemic heart disease, unspecified; Z95.1 Presence of aortocoronary bypass graft; I45.10 Unspecified right bundle-branch block; E78.5 Hyperlipidemia, unspecified; I25.10 Atherosclerotic heart disease of native coronary artery without angina pectoris; I44.0 Atrioventricular block, first degree; I49.3 Ventricular premature depolarization; K21.9 Gastro-esophageal reflux disease without esophagitis; Z89.512 Acquired absence of left leg below knee
CPT/HCPCS: 1NP; 1NSP; 36592; 71045; 82436; 93005; 93010; 96374; 96375; 99291; C8929; J1644; Q9957

== ENCOUNTER 2017-06-08 13:36 | Inpatient (IN) | payer OTHER, MEDICARE ==
[~2017-06-08] VITALS: Ht 175.3 cm; Wt 85.2 kg
[~2017-06-08 13:36] MED LIST: ADVIL200 M1 PO; AMIODARONE HCL200 M1 PO; ASPIRIN EC81 M1 PO; ATENOLOL25 M1 PO; ELIQUIS2.5 M1 PO; ISOSORBIDE MONO60 M1 PO; PRINIVIL10 M1 PO; TUMS200 MG PO; ZOCOR40 M1 PO
--- NOTE | 2017-06-08 14:11 | ED CARDIAC/CP/PALPITATIONS ---
History of Present Illness General Chief Complaint: Dyspnea (COPD, CHF, Other) Stated Complaint: SOB, +NAUSEA, NEW MEDS: ELIQUIS, AMIODARONE Source: patient, family, old records Exam Limitations: no limitations Vital Signs & Intake/Output Vital Signs & Intake/Output Vital Signs Date Time Temp Pulse Resp B/P B/P Pulse O2 O2 Flow FiO2 Mean Ox Delivery Rate 06/08 1455 155 140/60 06/08 1414 156 146/64 06/08 1407 156 18 146/64 95 Room Air 06/08 1401 95 Room Air 06/08 1343 96.0 64 20 114/80 95 Room Air Room Air Allergies Coded Allergies: No Known Allergies (06/05/17) Reconcile Medications Amiodarone (Cordarone) 200 MG TAB 0 PO SEE ADMIN CRITERIA HR .From 06/07 to 06/21, take two tab twice per day From 06/22. Take One Tab daily Apixaban (Eliquis) 2.5 MG TABLET 2.5 MG PO BID Anticoagulation . Aspirin (Ecotrin*) 81 MG TABLET.DR 1 TAB PO QAM HEART/BLOOD (Reported) Calcium Carbonate (TUMS) (Unknown Strength) TAB.CHEW (Unknown Dose) PO PRN GI (Reported) Ibuprofen (Advil) 200 MG CAPSULE 2 CAP PO PRN PAIN/INFLAMMATION (Reported) Isosorbide Mononitrate (Isosorbide Mononitrate ER) 60 MG TAB.ER.24H 1 TAB PO QPM HEART (Reported) Lisinopril (Prinivil) 10 MG TABLET 1 TAB PO QAM BP (Reported) Simvastatin (Zocor*) 40 MG TABLET 1 TAB PO QPM CHOLESTEROL (Reported) Triage Note: TRIQAGE: RECENT ADMISSION - PLACED ON ELIQUIS AND AMIODARONE FOR RECENT DIAGNOSIS OF AFIB. BP NORMOTENSIVE 114/80 AND HEART RATE 64. HAS MANY QUESTIONS REGARDING DISCHARGE MEDICATIONS C/O +NAUSEA AND DYSPNEA. ROOM AIR SPO2 95%. Triage Nurses Notes Reviewed? yes HPI: Patient was discharged just yesterday after admission for new onset atrial fibrillation. Patient converted to sinus rhythm while in the hospital and he was discharged on amiodarone as well as a course. This morning he took his amiodarone and L) 10 nauseous. Patient then noticed that his heart was beating fast again so he came back to the emergency department for evaluation he denies any chest pain or chest tightness. The nausea has resolved. He denies any shortness of breath. Past History Travel History Traveled to [place] past 21 day No Medical History Any Pertinent Medical History? 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 No Review of Systems Review of Systems Constitutional: Reports: no symptoms. EENTM: Reports: no symptoms. Respiratory: Reports: no symptoms. Cardiovascular: Reports: see HPI, palpitations. GI: Reports: see HPI, nausea. Genitourinary: Reports: no symptoms. Musculoskeletal: Reports: no symptoms. Skin: Reports: no symptoms. Neurological/Psychological: Reports: no symptoms. Hematologic/Endocrine: Reports: no symptoms. Immunologic/Allergic: Reports: no symptoms. All Other Systems: Reviewed and Negative Physical Exam Physical Exam General Appearance: well developed/nourished, alert, awake, mild distress Head: atraumatic, normal appearance Eyes: Bilateral: PERRL, EOMI. Ears, Nose, Throat: normal pharynx, normal ENT inspection, hearing grossly normal Neck: normal inspection, supple, full range of motion Respiratory: normal breath sounds, chest non-tender, no respiratory distress, lungs clear Cardiovascular: normal peripheral pulses, tachycardia, irregularly irregular Gastrointestinal: normal bowel sounds, soft, non-tender, no organomegaly Back: normal inspection, normal range of motion Extremities: normal inspection, normal capillary refill, normal range of motion, no edema Neurologic/Psych: no motor/sensory deficits, awake, alert, oriented x 3, normal mood/affect Skin: intact, normal color, warm/dry Lymphatic: no anterior cervical rivas Core Measures ACS in differential dx? No CVA/TIA Diagnosis No Sepsis Present: No Sepsis Focused Exam Completed? No Progress Differential Diagnosis: AMI, atrial fibrillation, hyperkalemia, myocarditis, pericarditis, pneumonia, pneumothorax Plan of Care: Orders Procedure Date/time Status Heart Healthy Diet 06/[address] in observation 06/08 1454 Active ED Holding Orders 06/08 1454 Active Vital Signs 06/08 1454 Active Code Status 06/08 1454 Active XRY-PORTABLE CHEST XRAY 06/08 1410 Active TROPONIN LEVEL 06/08 1410 Complete COMPREHENSIVE METABOLIC PANEL 06/08 141 Complete CBC WITHOUT DIFFERENTIAL 06/08 141 Complete EKG 06/08 1344 Active Current Medications Sig/Marco A Start time Last Medication Dose Stop Time Status Admin Diltiazem HCl 125 MG Q12H 06/08 1445 AC (Cardizem DRIP) Dextrose/Water 100 ML (D5W) Laboratory Tests 06/08/17 1415: Anion Gap 14, Estimated GFR 39 L, BUN/Creatinine Ratio 16.5, Glucose 88, Calcium 9.6, Total Bilirubin 0.7, AST 22, ALT 26, Alkaline Phosphatase 67, Troponin I 0.02, Total Protein 7.2, Albumin 4.2, Globulin 3.0, Albumin/Globulin Ratio 1.4, CBC w Diff NO MAN DIFF REQ, RBC 5.28, MCV 85.0, MCH 27.9, MCHC 32.8 L, RDW 14.2, MPV 7.5, Gran % 78.8 H, Lymphocytes % 12.5 L, Monocytes % 6.4, Eosinophils % 1.9, Basophils % 0.4, Absolute Granulocytes 6.8 H, Absolute Lymphocytes 1.1 L, Absolute Monocytes 0.6, Absolute Eosinophils 0.2, Absolute Basophils 0 Initial ED EKG: AFIB, RBBB, nonspecific ST T wave chg Prior EKG: unchanged Rhythm Strip: atrial fibrillation Departure Departure Disposition: STILL A PATIENT Condition: Stable Clinical Impression Primary Impression: Atrial fibrillation with RVR Referrals: Martita SETH,Jl Montoya (PCP/Family) Departure Forms: Customer Survey General Discharge Information Observation Note Spoke With: Crystal SETH,Magy Physician Advisor Notified: ANDRÉS SETH,AMADO [facility] Patient In: Non-ED OBS Care Area Rationale for Observation: My rational for observation is as follows [TELE MONITORING,RATE CONTROL, CARDIZEM DRIP, CARDIOLOGY CONSULT]. Critical Care Note Critical Care Note Critical Care Time: mins: (90 MIN)
[2017-06-08 14:25] LABS: ABSOLUTE BASOPHIL COUNT 0 /CUMM (0.0-0.2); ABSOLUTE EOSINOPHIL COUNT 0.2 /CUMM (0.0-0.7); ABSOLUTE GRANULOCYTE CT 6.8 /CUMM (1.4-6.5); ABSOLUTE LYMPH COUNT 1.1 /CUMM (1.2-3.4); ABSOLUTE MONOCYTE COUNT 0.6 /CUMM (0.10-0.60); BASOPHIL % 0.4 % (0.0-2.0); EOSINOPHIL % 1.9 % (0-5); GRANULOCYTE % 78.8 % (42.2-75.2); MEAN CORPUSCULAR HGB 27.9 PG (27.0-31.0); MEAN CORPUSCULAR HGB CONC 32.8 G/DL (33.0-37.0); MEAN PLATELET VOLUME 7.5 FL (7.4-10.4); PLATELET COUNT 294 /CUMM (130-400); RBC DISTRIBUTION WIDTH 14.2 % (11.5-14.5); RED BLOOD CELL CT 5.28 /CUMM (4.70-6.10); WHITE BLOOD CELL COUNT 8.6 /CUMM (4.8-10.8)
--- NOTE | 2017-06-08 15:18 | RADIOLOGY REPORT ---
EXAMINATION: XR PORTABLE CHEST CLINICAL INFORMATION: Chest pain. COMPARISON: Chest radiography 06/05/2017. TECHNIQUE: Portable frontal view of the chest was obtained. FINDINGS: Persistent left pleural effusion and adjacent basilar opacification. Right lung is well expanded and clear. No pulmonary edema or pneumothorax. Mediastinal contours are unchanged. Sternotomy wires. No acute osseous abnormalities. IMPRESSION: Persistent moderate left pleural effusion and adjacent basilar opacification, not significantly changed compared to prior exam.
--- NOTE | 2017-06-08 15:36 | History & Physical ---
[facility]27: General Information and HPI MD Statement: I have seen and personally examined NATHAN CARLIN and documented this H&P. The patient is a 82 year old M who presented with a patient stated chief complaint of nausea and shortness of breath since this morning []. Source of Information: patient, old records Exam Limitations: no limitations History of Present Illness: 82 YO M ex-smoker PMH significant for CAD s/p CABG (1996), PCI with stents (2001 ), HTN, HLD, left BKA (2006), and proxysmal atrial fibrillation, presents with chief complaint of nausea and shortness of breath since this morning. According to patient he was discharged yesterday from hospital and he was taking his medication regularly. Patient reported that he was taking his morning pills at night and evening pills at 3pm. This morning patient noticed having severe nausea and shortness of breath. Patient reported that he was not able to take his medication this morning. He denied chest pain, palpitation, vomiting, lightheadedness, loss of consciousness, trauma, abdominal pain, diarrhea, cough, sputum, chills, fever, constipation, dizziness and dysuria. Patient reported that he went to get his medication at the pharmacy and he was not able to catch his breath. Patient came to the hospital for evaluation. After coming to the hospital his shortness of breath has been resolved. Last echocardiogram was done on June 2017 that showed ejection fraction 25-30% with regional wall motion abnormality and mild pulmonary hypertension. ED course: Vitals: Temperature 96.0, pulse 64, respiratory rate 20, blood pressure 114/80, oxygen saturation 95% room air. Labs: WBC count 8.6, hemoglobin 14.8, hematocrit 45.0, platelet count 294, sodium 144, potassium 4.7, BUN 28, creatinine 1.7, BUN/creatinine ratio 16.5, glucose 88, calcium 9.6, AST 22, ALT 26, troponin 0.02 In ED patient was found to have A. fib with rapid ventricular response and he was started on Cardizem drip. Allergies/Medications Allergies: Coded Allergies: No Known Allergies (06/05/17) Home Med list Amiodarone (Cordarone) 200 MG TAB 0 PO SEE ADMIN CRITERIA HR .From 06/07 to 06/21, take two tab twice per day From 06/22. Take One Tab daily Apixaban (Eliquis) 2.5 MG TABLET 2.5 MG PO BID Anticoagulation . Aspirin (Ecotrin*) 81 MG TABLET. 1 TAB PO QAM HEART/BLOOD (Reported) Calcium Carbonate (TUMS) (Unknown Strength) TAB.CHEW (Unknown Dose) PO PRN GI (Reported) Ibuprofen (Advil) 200 MG CAPSULE 2 CAP PO PRN PAIN/INFLAMMATION (Reported) Isosorbide Mononitrate (Isosorbide Mononitrate ER) 60 MG TAB.ER.24H 1 TAB PO QPM HEART (Reported) Lisinopril (Prinivil) 10 MG TABLET 1 TAB PO QAM BP (Reported) Simvastatin (Zocor*) 40 MG TABLET 1 TAB PO QPM CHOLESTEROL (Reported) Past History Travel History Traveled to [place] past 21 day No Medical History Neurological: dizziness EENT: NONE Cardiovascular: AFIB, hypertension, hyperlipidemia Respiratory: NONE Gastrointestinal: ACID REFLUX Hepatic: NONE Renal: NONE Musculoskeletal: falls Psychiatric: NONE Endocrine: NONE Blood Disorders: NONE Cancer(s): NONE 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 Ambulation: cane Review of Systems Review of Systems Constitutional: Denies: chills, fever. EENTM: Reports: no symptoms. Cardiovascular: Denies: chest pain, palpitations. Respiratory: Reports: short of breath. Denies: cough, sputum production. GI: Reports: nausea. Denies: abdominal pain, constipation, diarrhea. Genitourinary: Reports: no symptoms. Musculoskeletal: Reports: no symptoms. Neurological/Psychological: Reports: no symptoms. Exam & Diagnostic Data Last 24 Hrs of Vital Signs/I&O Vital Signs Date Time Temp Pulse Resp B/P B/P Pulse O2 O2 Flow FiO2 Mean Ox Delivery Rate 06/08 1455 155 140/60 06/08 1455 155 140/60 06/08 1414 156 146/64 06/08 1407 156 18 146/64 95 Room Air 06/08 1401 95 Room Air 06/08 1343 96.0 64 20 114/80 95 Room Air Room Air Intake & Output 06/08 1600 06/08 0800 06/08 0000 Intake Total Output Total Balance Patient 190 lb Weight Weight Reported by Patient Measurement Method Physical Exam General Appearance Alert, Oriented X3, Cooperative, No Acute Distress Skin No Rashes Skin Temp/Moisture Exam: Warm/Dry Sepsis Skin Exam (color): Normal for Ethnicity HEENT Atraumatic, PERRLA, EOMI Neck Supple Cardiovascular Normal S1, Normal S2 Lungs B/L decreased breath sounds Abdomen Soft, No Tenderness Neurological Normal Speech, Normal Tone Extremities Left leg BKA, Right leg edema Last 24 Hrs of Labs/Sameer: Laboratory Tests 06/08/17 1415: Anion Gap 14, Estimated GFR 39 L, BUN/Creatinine Ratio 16.5, Glucose 88, Calcium 9.6, Total Bilirubin 0.7, AST 22, ALT 26, Alkaline Phosphatase 67, Troponin I 0.02, Total Protein 7.2, Albumin 4.2, Globulin 3.0, Albumin/Globulin Ratio 1.4, CBC w Diff NO MAN DIFF REQ, RBC 5.28, MCV 85.0, MCH 27.9, MCHC 32.8 L, RDW 14.2, MPV 7.5, Gran % 78.8 H, Lymphocytes % 12.5 L, Monocytes % 6.4, Eosinophils % 1.9, Basophils % 0.4, Absolute Granulocytes 6.8 H, Absolute Lymphocytes 1.1 L, Absolute Monocytes 0.6, Absolute Eosinophils 0.2, Absolute Basophils 0 Assessment/Plan Assessment: 82 YO M ex-smoker PMH significant for CAD s/p CABG (1996), PCI with stents (2001 ), HTN, HLD, left BKA (2006), and proxysmal atrial fibrillation, presents with chief complaint of nausea and shortness of breath since this morning. We will admit the patient on telemetry floor and will follow for the following problems: A. fib with rapid ventricular response; -Continue Cardizem drip @ 10ml/h to keep the heart rate less than 110. -Continue Eliquis 2.5 mg twice a day -Cardiology consult -Patient's echocardiogram one-week back showed ejection fraction 2530 percent. History of CAD status post CABG: -Continue aspirin -Continue isosorbide mononitrate -Continue lisinopril History of hypertension hyperlipidemia: -Continue lisinopril -Continue Lipitor DVT prophylaxis: -Mechanical and patient is already on Eliquis CODE STATUS; Full code As Ranked By This Provider Problem List: 1. Atrial fibrillation with RVR Core Measures/Misc (11/17) Acute Coronary Syndrome ACS Diagnosis: No Congestive Heart Failure Congestive Heart Failure Diagnosis No Cerebrovascular Accident CVA/TIA Diagnosis: No VTE (View Protocol) VTE Risk Factors Age>40 No Mechanical VTE Prophylaxis d/t N/A MechProphylax Ordered No VTE Pharm Prophylaxis d/t NA PharmProphylax ordered Sepsis (View protocol) Sepsis Present: No Brandy Chow 06/08/17 1721: Resident Review Statement Resident Statement: examined this patient, discussed with internal audit manager, agreed with internal audit manager Other Findings: Patient is 82 years old male with PMH of htn, HLD, CABG and new onset a fib came to ER with chief complain of difficulty breathing and feeling unwell. In ER he was found to be in a fib with RVR (HR 155). Patient was discharged yesterday on 400 mg amiodarone and eliquis however patient states that he took am dose of amio at 9 am and pm dose at 3pm. He does not report of any difficulty breathing right now, denies any chest pain, palpitations, headache, dizzines, abdominal discomfort, burning micturation. His initial EKG showed a fib with RVR. EF 25-30% from last time. CXR Persistent moderate left pleural effusion and adjacent basilar opacification, not significantly changed compared to prior exam. Assseement and Plan: Will admit patient to telemetry floor Will continue amiodarone 400 mg bID and eliquis. Discussed the patient with Dr. Palacios, we will add metoprolol 25 BID. Patient is currently on 10 mcg of cardizem drip, will titrate accordingly DVT ppx eliquis Full code. Crystal SETH,Magy 06/08/172046: Attending MD Review Statement Attending Statement Attending MD Statement: examined this patient, discuss w/resident/PA/C4 PLANNER, agreed w/resident/PA/C4 PLANNER, reviewed EMR data (avail) Attending Assessment/Plan: Patient seen and examined. Plan of care discussed with the medical team and the patient. Available lab work and radiology test reports were reviewed. In summary this is a 82 years old male ex-smoker PMH significant for CAD s/p CABG ( 1996), PCI with stents (2001), HTN, HLD, left BKA (2006), and proxysmal atrial fibrillation, who was discharged yesterday after a brief stay for rapid A. fib who presents with chief complaint of nausea and shortness of breath since this morning. Patient was started on amiodarone upon discharge. He returns today with rapid A. fib history of nausea and mild difficulty breathing. His heart was 156 but with stable blood pressure. He was afebrile. Saturation 94% room air. Chest exam shows few scattered crepitations. Patient was given IV Cardizem drip which is stabilizes heart rate close to 65/m. Chest x-ray shows persistent left pleural effusion with possible atelectasis. His creatinine is 1.7 which is close to his baseline and his first troponin was negative. Assessment plan * Rapid A. fib * Nausea and sweating likely associated with rapid A. fib * Chronic renal insufficiency * Pleural effusion * Basal atelectasis Plan Continue Cardizem drip Cardiac consult done Will rule out for troponin 3 sets Continue amiodarone Once patient is stabilized he'll be converted to oral Cardizem
[2017-06-08 18:02] VITALS: BP 126/62
--- NOTE | 2017-06-08 20:20 | Cons- Cardiology ---
General Information and HPI Consulting Request Date of Consult: 06/08/17 Requested By: Crystal SETH,Magy Reason for Consult: Atrial fibrillation History of Present Illness: The patient is an 82-year-old male with history of CAD, status post CABG, left ventricular systolic dysfunction, who was admitted June 06 with atrial fibrillation with rapid ventricular rate. He converted to sinus rhythm. He was started on p.o. amiodarone and discharged to home. He presents with complaint of nausea and shortness of breath. No chest pain. No palpitations. No lightheadedness or dizziness. No nausea or vomiting. No diaphoresis. He was found in the emergency department to be in atrial fibrillation with rapid ventricular rate and was placed on observation. Diltiazem drip was started to control the rate. While on the diltiazem drip he converted back to sinus rhythm. Allergies/Medications Allergies: Coded Allergies: No Known Allergies (06/05/17) Home Med List: Amiodarone (Cordarone) 200 MG TAB 0 PO SEE ADMIN CRITERIA HR .From 06/07 to 06/21, take two tab twice per day From 06/22. Take One Tab daily Apixaban (Eliquis) 2.5 MG TABLET 2.5 MG PO BID Anticoagulation . Aspirin (Ecotrin*) 81 MG TABLET.DR 1 TAB PO QAM HEART/BLOOD (Reported) Calcium Carbonate (TUMS) (Unknown Strength) TAB.CHEW (Unknown Dose) PO PRN GI (Reported) Ibuprofen (Advil) 200 MG CAPSULE 2 CAP PO PRN PAIN/INFLAMMATION (Reported) Isosorbide Mononitrate (Isosorbide Mononitrate ER) 60 MG TAB.ER.24H 1 TAB PO QPM HEART (Reported) Lisinopril (Prinivil) 10 MG TABLET 1 TAB PO QAM BP (Reported) Simvastatin (Zocor*) 40 MG TABLET 1 TAB PO QPM CHOLESTEROL (Reported) Review of Systems Review of Systems: No rash. No tremor. No melena. All other systems were reviewed, and were noted to be negative. 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 Family history was reviewed with the patient and was negative for any factors contributing to the current admission. Psychosocial History Smoking Status: Former Smoker ETOH Use: denies use Illicit Drug Use: denies illicit drug use Functional Ability ADLs Independent: dressing, eating, toileting, bathing. Ambulation: cane Exam & Diagnostic Data Vital Signs and I&O Vital Signs Date Time Temp Pulse Resp B/P B/P Pulse O2 O2 Flow FiO2 Mean Ox Delivery Rate 06/08 1802 97.5 60 20 126/62 94 Room Air 06/08 1734 97.3 57 18 148/68 99 Room Air 06/08 1600 96.0 57 15 124/60 96 Room Air Room Air 06/08 1455 155 140/60 06/08 1455 155 140/60 06/08 1414 156 146/64 06/08 1407 156 18 146/64 95 Room Air 06/08 1401 95 Room Air 06/08 1343 96.0 64 20 114/80 95 Room Air Room Air Intake & Output 06/08 1600 06/08 0800 08 0000 06/07 1600 06/07 0800 06/07 0000 Intake Total Output Total Balance Patient 190 lb Weight Weight Reported by Patient Measurement Method Physical Exam: Gen: The patient is in no acute distress HEENT: Normal nose, ears, and oropharynx. Pupils equal bilaterally. Conjunctiva normal. Neck: Supple with no JVD, no masses, and no thyromegaly Lungs: Clear to auscultation with normal respiratory effort Heart: RRR, S1, S2, 2 out of 6 systolic murmur. No peripheral edema, 2+ pulses in the lower extremities bilaterally Abdomen: Soft, nontender, no masses. No hepatomegaly. No splenomegaly Extremities: No clubbing or cyanosis. Normal muscle strength in the upper and lower extremities Skin: Normal skin turgor with no skin ulcers or lesions noted. Neuro: Cranial nerves intact. Sensation intact Psych: Alert and oriented x 3 with appropriate affect Labs/Sameer Results: Laboratory Tests 06/08 1415 Chemistry Sodium (137 - 145 mmol/L) 144 Potassium (3.5 - 5.1 mmol/L) 4.7 Chloride (98 - 107 mmol/L) 106 Carbon Dioxide (22 - 30 mmol/L) 24 Anion Gap (5 - 16) 14 BUN (9 - 20 mg/dL) 28 H Creatinine (0.7 - 1.2 mg/dL) 1.7 H Estimated GFR (>60 ml/min) 39 L BUN/Creatinine Ratio (7 - 25 %) 16.5 Glucose (65 - 99 mg/dL) 88 Calcium (8.4 - 10.2 mg/dL) 9.6 Total Bilirubin (0.2 - 1.3 mg/dL) 0.7 AST (17 - 59 U/L) 22 ALT (21 - 72 U/L) 26 Alkaline Phosphatase (< 127 U/L) 67 Troponin I (<0.11 ng/ml) 0.02 Total Protein (6.3 - 8.2 g/dL) 7.2 Albumin (3.5 - 5.0 g/dL) 4.2 Globulin (1.9 - 4.2 gm/dL) 3.0 Albumin/Globulin Ratio (1.1 - 2.2 %) 1.4 Hematology CBC w Diff NO MAN DIFF REQ WBC (4.8 - 10.8 /CUMM) 8.6 RBC (4.70 - 6.10 /CUMM) 5.28 Hgb (14.0 - 18.0 G/DL) 14.8 Hct (42 - 52 %) 45.0 MCV (80.0 - 94.0 FL) 85.0 MCH (27.0 - 31.0 PG) 27.9 MCHC (33.0 - 37.0 G/DL) 32.8 L RDW (11.5 - 14.5 %) 14.2 Plt Count (130 - 400 /CUMM) 294 MPV (7.4 - 10.4 FL) 7.5 Gran % (42.2 - 75.2 %) 78.8 H Lymphocytes % (20.5 - 51.1 %) 12.5 L Monocytes % (1.7 - 9.3 %) 6.4 Eosinophils % (0 - 5 %) 1.9 Basophils % (0.0 - 2.0 %) 0.4 Absolute Granulocytes (1.4 - 6.5 /CUMM) 6.8 H Absolute Lymphocytes (1.2 - 3.4 /CUMM) 1.1 L Absolute Monocytes (0.10 - 0.60 /CUMM) 0.6 Absolute Eosinophils (0.0 - 0.7 /CUMM) 0.2 Absolute Basophils (0.0 - 0.2 /CUMM) 0 Diagnostic Data EKG Results EKG tracing is independently reviewed, and reveals atrial fibrillation with ventricular response of 135, right bundle branch block, inferior infarct age undetermined CXR Results Persistent moderate left pleural effusion and adjacent basilar opacification, not significantly changed compared to prior exam. Other Results Echocardiogram 06/07/17: 1. Severely decreased EF of 25-30% with regional wall motion abnormalities as noted above. 2. Trace mitral regurgitation. 3. Trace tricuspid regurgitation. 4. Trace aortic regurgitation. 5. Trace pulmonic regurgitation. 6. Mild pulmonary hypertension. Assessment/Plan Assessment/Plan Assessment: 82-year-old male with history of CAD, status post CABG, left ocular systolic dysfunction previously admitted with atrial fibrillation and discharged on amiodarone after converting to sinus rhythm. He now presents with recurrent atrial for ablation with rapid ventricular rate. The rate was brought under control on IV diltiazem, and he subsequently converted to sinus rhythm. Recommendations: * Continue oral amiodarone * Start metoprolol 50 mg p.o. twice daily for rate control in the event of further atrial fibrillation * Discontinue diltiazem drip * Continue Eliquis Consult Acknowledgment - Thank you for your consult request.
--- NOTE | 2017-06-08 20:47 | Admission Certification ---
Admission Certification Certification Statement - As attending physician, I certify that at the time of - admission, based on clinical presentation, severity of - symptoms, need for further diagnostic testing and - therapeutic interventions, and risk of adverse outcomes - without in-hospital treatment, in my clinical assessment, - this patient requires an acute hospital stay for a minimum - of two nights or longer. I have also considered psychsocial - factors such as support system, advanced age, financial - issues, cognitive issues, and failed out-patient treatments, - past re-admission history, safety of patient, and lack of - compliance as applicable. Specific rationale supporting this admission is: Rapid A. fib
[2017-06-08 22:01] VITALS: BP 106/50
[2017-06-09 07:01] VITALS: BP 130/64
--- NOTE | 2017-06-09 07:16 | PN- Housestaff ---
Subjective Follow-up For: David Mohan Nausea and Vomiting Tele-Events Since Last Visit: NSR 22 - 91 Subjective: Mr Oneill was seen and examined this morning, he is resting comfortably in bed. Denies any issues overnight. States that he has not been very happy with the beginning of amiodarone. Since that since been discharged she has felt multiple episodes of nausea, flatulence and GI upset. Denies any fever, chills, vomiting denies any shortness of breath or weakness. He has been tolerating by mouth intake well. Requests that we should come up with an alternative medication. Review of Systems Constitutional: Reports: see HPI. Objective Last 24 Hrs of Vital Signs/I&O Vital Signs Date Time Temp Pulse Resp B/P B/P Pulse O2 O2 Flow FiO2 Mean Ox Delivery Rate 06/09 700 97.5 72 12 130/64 95 Room Air 06/08 220 97.7 59 20 106/50 95 Room Air 06/08 2110 57 110/60 06/08 2109 57 110/60 06/08 1802 97.5 60 20 126/62 94 Room Air 08 1734 97.3 57 18 148/68 99 Room Air /08 1600 96.0 57 15 124/60 96 Room Air Room Air /08 1455 155 140/60 04/08 1455 155 140/60 /08 1414 156 146/64 04/08 1407 156 18 146/64 95 Room Air /08 1401 95 Room Air /08 1343 96.0 64 20 114/80 95 Room Air Room Air Intake & Output 06/09 1600 06/09 0800 06/09 0000 Intake Total 110 320 Output Total Balance 110 320 Intake, IV 10 Intake, Oral 100 320 Patient 85.814 kg Weight Weight Bed scale Measurement Method Physical Exam General Appearance: Alert, Oriented X3, Cooperative Cardiovascular: Regular Rate, Normal S1, Normal S2 Lungs: Clear to Auscultation Abdomen: Normal Bowel Sounds, Soft, No Tenderness Neurological: Normal Speech, Normal Tone, Cranial Nerves 3-12 NL Extremities: Left BKA Vascular: No Edema Current Medications: Current Medications Sig/Marco A Start time Last Medication Dose Route Stop Time Status Admin Amiodarone HCl 400 MG BID 06/08 2199 AC 06/08 PO 2108 Apixaban 2.5 MG BID 06/08 2199 AC 06/08 PO 2109 Aspirin Buffered 81 MG QAM 06/09 1000 AC PO Atorvastatin Calcium 20 MG 1700 06/08 1700 AC 06/08 PO 2110 Calcium Carbonate 500 MG DAILY 06/09 1000 AC PO Calcium Carbonate 500 MG ONCE ONE 06/09 0330 DC 06/09 PO 06/09 0331 0329 Diltiazem HCl 10 MG ONCE ONE 06/08 1445 DC 06/08 IV PUSH 06/08 1446 1455 Diltiazem HCl 125 MG Q12H 06/08 1445 DC 06/08 Dextrose/Water 100 ML IV 1521 Diltiazem HCl 10 MG ONCE ONE 06/08 1415 DC 06/08 IV PUSH 06/08 1416 1414 Hyoscyamine 0.125 MG ONCE ONE 06/09 0815 DC PO 06/09 0816 Isosorbide 60 MG QPM 06/08 2200 AC 06/08 Mononitrate PO 2110 Magnesium Oxide 400 MG ONE ONE 06/09 0900 DC PO 06/09 0901 Metoprolol Tartrate 50 MG BID 06/09 0325 DC PO Last 24 Hrs of Lab/Sameer Results Last 24 Hrs of Labs/Mics: Laboratory Tests 06/09/17 0350: Anion Gap 14, Estimated GFR 36 L, BUN/Creatinine Ratio 18.9, Magnesium 1.8, Troponin I 0.04 06/08/17 1415: Anion Gap 14, Estimated GFR 39 L, BUN/Creatinine Ratio 16.5, Glucose 88, Calcium 9.6, Total Bilirubin 0.7, AST 22, ALT 26, Alkaline Phosphatase 67, Troponin I 0.02, Total Protein 7.2, Albumin 4.2, Globulin 3.0, Albumin/Globulin Ratio 1.4, CBC w Diff NO MAN DIFF REQ, RBC 5.28, MCV 85.0, MCH 27.9, MCHC 32.8 L, RDW 14.2, MPV 7.5, Gran % 78.8 H, Lymphocytes % 12.5 L, Monocytes % 6.4, Eosinophils % 1.9, Basophils % 0.4, Absolute Granulocytes 6.8 H, Absolute Lymphocytes 1.1 L, Absolute Monocytes 0.6, Absolute Eosinophils 0.2, Absolute Basophils 0 Assessment/Plan Assessment: DRAFT 82 YO M ex-smoker PMH significant for CAD s/p CABG (1996), PCI with stents (2001 ), HTN, HLD, left BKA (2006), and proxysmal atrial fibrillation, presents with chief complaint of nausea and shortness of breath since this morning. Continue the patient on telemetry floor and will follow for the following problems: A. fib with rapid ventricular response; -Continue Cardizem drip @ 10ml/h to keep the heart rate less than 110, consider transition to PO Cardizem -Continue Eliquis 2.5 mg twice a day -Cardiology consult History of CAD status post CABG: -Continue aspirin -Continue isosorbide mononitrate -Continue lisinopril History of hypertension hyperlipidemia: -Continue lisinopril -Continue Lipitor DVT prophylaxis: -Mechanical and patient is already on Eliquis Nausea -Levsin BID CODE STATUS; Full code Problem List: 1. Atrial fibrillation with RVR 2. Nausea Pain Ratin Pain Location: No Pain Pain Goal: Remain pain free Pain Plan: Tylenol PRN Tomorrow's Labs & Rationales: CBC BEP
--- NOTE | 2017-06-09 11:09 | PN-Observation ---
Patric SETH,[facility] 06/09/17 1109: Observation Note Observation Note _ I have personally examined NATHAN CARLIN. him disposition is uncertain at this time. Before a determination can be made, he requires continued observation for the following reasons he needs to be observed to ensure adequate rate and rhythm medication regiment has finalized. Failure to do so may result in complications which may result from atrial fibrillation including uncontorlled tachycardia, stroke, hemodynamic instability and possibly . Assessment/Plan Medical Assessment: 82 YO M ex-smoker PMH significant for CAD s/p CABG (1996), PCI with stents (2001 ), HTN, HLD, left BKA (2006), and proxysmal atrial fibrillation, presents with chief complaint of nausea and shortness of breath since.. Continue the patient on telemetry floor and will follow for the following problems: A. fib with rapid ventricular response; -Fabrizio in NSR. -May consider transitioning to Oral Cardizem. -Continue Eliquis 2.5 mg twice a day -Cardiology consult, await recommendations on Amiodarone (patient does not want to be on this medication) History of CAD status post CABG: -Continue aspirin -Hold lisinopril, due to renal Insufficiency, BEP in am History of hypertension hyperlipidemia: -Continue Lipitor DVT prophylaxis: -Mechanical Eliquis Nausea -Levsin BID CODE STATUS; Full code Problem List: 1. Atrial fibrillation with RVR Subjective Follow-up For: A. Fib Nausea and Vomiting Tele-Events Since Last Visit: NSR 57 - 77 Subjective: Mr Carlin was seen and examined this morning, he is resting comfortably in bed. Denies any issues overnight. States that he has not been very happy with the beginning of amiodarone. Since that since been discharged she has felt multiple episodes of nausea, flatulence and GI upset. Denies any fever, chills, vomiting denies any shortness of breath or weakness. He has been tolerating by mouth intake well. Requests that we should come up with an alternative medication. Review of Systems Constitutional: Reports: see HPI. Objective Last 24 Hrs of Vital Signs/I&O Vital Signs Date Time Temp Pulse Resp B/P B/P Pulse O2 O2 Flow FiO2 Mean Ox Delivery Rate 06/09 0701 97.5 72 12 130/64 95 Room Air 06/08 2201 97.7 59 20 106/50 95 Room Air / 2110 57 110/60 / 2109 57 110/60 /08 1802 97.5 60 20 126/62 94 Room Air 06/08 1734 97.3 57 18 148/68 99 Room Air 06/08 1600 96.0 57 15 124/60 96 Room Air Room Air 06/08 1455 155 140/60 06/08 1455 155 140/60 06/08 1414 156 146/64 06/08 1407 156 18 146/64 95 Room Air 06/08 1401 95 Room Air 06/08 1343 96.0 64 20 114/80 95 Room Air Room Air Intake & Output 06/09 1600 06/09 0800 06/09 0000 Intake Total 110 320 Output Total Balance 110 320 Intake, IV 10 Intake, Oral 100 320 Patient 85.814 kg Weight Weight Bed scale Measurement Method Physical Exam General Appearance: Alert, Oriented X3, Cooperative Cardiovascular: Regular Rate, Normal S1, Normal S2 Lungs: Clear to Auscultation Abdomen: Normal Bowel Sounds, Soft, No Tenderness Neurological: Normal Speech Extremities: No Edema, LEFT BKA Vascular: Normal Pulses Current Medications: Current Medications Sig/Marco A Start time Last Medication Dose Route Stop Time Status Admin Amiodarone HCl 400 MG BID 06/08 2199 AC 06/08 PO 210 Apixaban 2.5 MG BID 06/08 2199 AC 06/09 PO 1006 Aspirin Buffered 81 MG QAM 06/09 1000 AC 06/09 PO 1006 Atorvastatin Calcium 20 MG 1700 06/08 1700 AC 06/08 PO 2110 Calcium Carbonate 500 MG DAILY 06/09 1000 AC 06/09 PO 1006 Calcium Carbonate 500 MG ONCE ONE 06/09 0330 DC 06/09 PO 06/09 0331 0329 Diltiazem HCl 10 MG ONCE ONE 06/08 1445 DC 06/08 IV PUSH 06/08 1446 1455 Diltiazem HCl 125 MG Q12H 06/08 1445 DC 06/08 Dextrose/Water 100 ML IV 1521 Diltiazem HCl 10 MG ONCE ONE 06/08 1415 DC 06/08 IV PUSH 06/08 1416 1414 Hyoscyamine 0.125 MG ONCE ONE 06/09 0815 DC 06/09 PO 06/09 0816 1009 Isosorbide 60 MG QPM 06/08 2200 AC 06/08 Mononitrate PO 2110 Magnesium Oxide 400 MG ONE ONE 06/09 899 DC 06/09 PO 06/09 900 1005 Metoprolol Tartrate 50 MG BID 06/09 324 DC PO Last 24 Hrs of Labs/Mics: Laboratory Tests 06/09/17 0350: Anion Gap 14, Estimated GFR 36 L, BUN/Creatinine Ratio 18.9, Magnesium 1.8, Troponin I 0.04 06/08/17 1415: Anion Gap 14, Estimated GFR 39 L, BUN/Creatinine Ratio 16.5, Glucose 88, Calcium 9.6, Total Bilirubin 0.7, AST 22, ALT 26, Alkaline Phosphatase 67, Troponin I 0.02, Total Protein 7.2, Albumin 4.2, Globulin 3.0, Albumin/Globulin Ratio 1.4, CBC w Diff NO MAN DIFF REQ, RBC 5.28, MCV 85.0, MCH 27.9, MCHC 32.8 L, RDW 14.2, MPV 7.5, Gran % 78.8 H, Lymphocytes % 12.5 L, Monocytes % 6.4, Eosinophils % 1.9, Basophils % 0.4, Absolute Granulocytes 6.8 H, Absolute Lymphocytes 1.1 L, Absolute Monocytes 0.6, Absolute Eosinophils 0.2, Absolute Basophils 0 Selvin Morales 06/09/17 1114: Attending Addendum Attending Brief Note Patient placed on observation status for rapid afib with rvr controlled with iv cardizem. Cardiology consulted and rate controlled now with anticoagulation. Patient can be discharged if rate controlled and cardilogy ok for discharge. Serial cardiac enzymes negative for [facility]. Previous cath reports to be obtained from [place]. ECHO with EF 25%.
[2017-06-09 14:58] VITALS: BP 120/66
--- NOTE | 2017-06-09 20:47 | PN- Cardiology ---
Subjective Subjective: * Breathing is improved today. No chest pain. * creatinine 1.8 * left pleural effusion Objective Vital Signs and I&Os Vital Signs Date Time Temp Pulse Resp B/P B/P Pulse O2 O2 Flow FiO2 Mean Ox Delivery Rate 06/09 1458 97.6 68 20 120/66 95 06/09 1000 72 130/64 06/09 0701 97.5 72 12 130/64 95 Room Air 06/08 2201 97.7 59 20 106/50 95 Room Air 06/08 2110 57 110/60 06/08 2109 57 110/60 Intake & Output 06/09 1600 06/09 0800 06/09 0000 06/08 1600 06/08 0800 06/08 0000 Intake Total 600 110 320 Output Total Balance 600 110 320 Intake, IV 10 Intake, Oral 600 100 320 Patient 189 lb 190 lb Weight Weight Bed scale Reported by Patient Measurement Method Physical Exam: General: WD/obese male in NAD; alert and oriented x 3 HEENT: NC/AT, PERRL, EOMI Neck: no JVD, no carotid bruit Heart: RRR with ectopy and 2/6 systolic murmur Lungs: clear bilaterally Extremities: no edema, left BKA Assessment/Plan Assessment/Plan * This patient reportedly has a low EF but the details are not currently known. Obtain old records from the [place] including his cardiac catheterization report. * This patient has paroxysmal atrial fibrillation with increased heart rate. I suspect he has frequent paroxysms of this dysrhythmia which ultimately results in lightheadedness and at times chest pain. I think it is prudent to try and maintain a sinus rhythm in this patient who does not tolerate tachycardia well and is reluctant to be on chronic anticoagulation. In addition, he does have a low EF and renal dysfunction. Continue Amiodarone 400mg BID. We will monitor for continuing nausea since the patient thinks that this medications is causing this symptom. We will load him for two week and then decrease the dose to 200mg daily. I do believe he should still be on chronic anticoagulation with Eliquis 2.5mg BID if he is willing to take it. * This patient has evidence of myocardial ischemia. I am suspicious that his dental pain may be cardiac pain radiating toward his jaw. We will obtain his old cath report to determine if he is a reasonable candidate for revascularization. We will also consider a stess test. For now continue his Isosorbide, aspirin at 81mg daily, ACEI and statin. Continue telemetry? Yes
[2017-06-09 22:53] VITALS: BP 134/70
[2017-06-10 06:53] VITALS: BP 144/70
--- NOTE | 2017-06-10 07:13 | PN- Housestaff ---
Patric SETH,[facility] 06/10/17 0713: Subjective Follow-up For: David Maria Tele-Events Since Last Visit: NSR PVC PAC HR 72-90 9.00 AM: 180's Subjective: Mr Oneill was seen and examined this morning. He is resting comfortably in the chair beside his bed. Appears visibly upset owing to the fact that he still hasn't had a resolution to a way forward regarding his anti-arrhythmic therapy. He continues to decline the use of amiodarone. He denies any fever, chills, nausea, vomiting. Review of Systems Constitutional: Reports: see HPI. Objective Last 24 Hrs of Vital Signs/I&O Vital Signs Date Time Temp Pulse Resp B/P B/P Pulse O2 O2 Flow FiO2 Mean Ox Delivery Rate 06/10 1238 81 150/64 06/10 1002 85 144/70 06/10 0800 95 Room Air 06/10 0653 97.7 86 20 144/70 95 Room Air 06/09 2253 98.1 85 20 134/70 93 Room Air 06/09 2158 88 148/78 06/09 2156 88 148/78 06/09 1458 97.6 68 20 120/66 95 Intake & Output 06/10 1600 06/10 0800 06/10 0000 Intake Total 120 420 Output Total Balance 120 420 Intake, Oral 120 420 Patient 85.02 kg Weight Weight Bed scale Measurement Method Physical Exam General Appearance: Alert, Oriented X3, Cooperative Cardiovascular: Regular Rate, Normal S1, Normal S2 Lungs: Clear to Auscultation Abdomen: Normal Bowel Sounds, Soft, No Tenderness Neurological: Normal Speech Extremities: No Edema, Left BKA Current Medications: Current Medications Sig/Marco A Start time Last Medication Dose Route Stop Time Status Admin Amiodarone HCl 400 MG BID 06/08 2199 AC 06/08 PO 210 Apixaban 2.5 MG BID 06/08 2199 AC 06/10 PO 0958 Aspirin Buffered 81 MG QAM 06/09 1000 AC 06/10 PO 0958 Atorvastatin Calcium 20 MG 1700 06/08 1700 AC 06/09 PO 1635 Calcium Carbonate 500 MG DAILY 06/09 1000 AC 06/10 PO 1002 Diltiazem HCl 125 MG Q24H 06/10 0915 AC 06/10 Sodium Chloride 100 ML IV 1003 Hyoscyamine 0.125 MG BID 04/09 1552 DC 06/09 PO 1638 Isosorbide 60 MG QPM 06/08 2200 AC 06/09 Mononitrate PO 2156 Lisinopril 10 MG DAILY 06/10 1100 AC 06/10 PO 1238 Patient Medication 1 ED ONE ONE 06/10 0830 [place] Teaching ED 06/10 0831 Patient Medication 1 ED ONE ONE 06/09 1515 [facility] ED 06/09 1516 Last 24 Hrs of Lab/Sameer Results Last 24 Hrs of Labs/Mics: Laboratory Tests 06/10/17 0612: Anion Gap 13, Estimated GFR 39 L, BUN/Creatinine Ratio 15.9, CBC w Diff NO MAN DIFF REQ, RBC 4.67 L, MCV 85.0, MCH 28.0, MCHC 32.9 L, RDW 14.2, MPV 7.7, Gran % 73.2, Lymphocytes % 14.2 L, Monocytes % 7.0, Eosinophils % 5.1 H, Basophils % 0.5, Absolute Granulocytes 5.1, Absolute Lymphocytes 1.0 L, Absolute Monocytes 0.5, Absolute Eosinophils 0.4, Absolute Basophils 0 Assessment/Plan Assessment: 82 YO M ex-smoker PMH significant for CAD s/p CABG (1996), PCI with stents (2001 ), HTN, HLD, left BKA (2006), and proxysmal atrial fibrillation, presents with chief complaint of nausea and shortness of breath. Continue the patient on telemetry floor and will follow for the following problems: A. fib with rapid ventricular response; -Currenlty in NSR. -May consider transitioning to Oral Cardizem. -Continue Eliquis 2.5 mg twice a day -Cardiology consult, await recommendations on Amiodarone (patient does not want to be on this medication) History of CAD status post CABG: -Continue aspirin -Lisinopril in AM History of hypertension hyperlipidemia: -Continue Lipitor DVT prophylaxis: -Mechanical Eliquis Nausea #resolved. -Levsin BID CODE STATUS; Full code Problem List: 1. Atrial fibrillation with RVR Pain Ratin Pain Location: No Pain Pain Goal: Remain pain free Pain Plan: Tylenol PRN Tomorrow's Labs & Rationales: no Labs Selvin Morales 06/10/17 1114: Attending MD Review Statement Attending Statement Attending MD Statement: examined this patient, discuss w/resident/PA/[employer]AD [employer]ER, agreed w/resident/PA/[employer] MAKER, discussed with family, reviewed EMR data (avail), discussed with nursing, discussed with case mgmt, reviewed images, amended to note Attending Assessment/Plan: Patient here for rapid afib with rvr controlled with iv cardizem. Cardiology consulted. Serial cardiac enzymes negative for CT. ECHO with EF 25-30%. Overnight events: Patient had epsiode of uincontrolled afib this am. Restarted iv cardizem for rate control. F/u cardiology recs. Previous cath reports to be obtained from [place].
[2017-06-10 07:54] LABS: ABSOLUTE BASOPHIL COUNT 0 /CUMM (0.0-0.2); ABSOLUTE EOSINOPHIL COUNT 0.4 /CUMM (0.0-0.7); ABSOLUTE MONOCYTE COUNT 0.5 /CUMM (0.10-0.60); BASOPHIL % 0.5 % (0.0-2.0)
[2017-06-10 08:19] LABS: ABSOLUTE GRANULOCYTE CT 5.1 /CUMM (1.4-6.5); EOSINOPHIL % 5.1 % (0-5); GRANULOCYTE % 73.2 % (42.2-75.2); MEAN CORPUSCULAR HGB CONC 32.9 G/DL (33.0-37.0); MEAN PLATELET VOLUME 7.7 FL (7.4-10.4); PLATELET COUNT 269 /CUMM (130-400); RBC DISTRIBUTION WIDTH 14.2 % (11.5-14.5); RED BLOOD CELL CT 4.67 /CUMM (4.70-6.10); WHITE BLOOD CELL COUNT 6.9 /CUMM (4.8-10.8)
[2017-06-10 08:26] LABS: HEMATOCRIT 39.7 % (42-52)
[2017-06-10 08:58] VITALS: BP 152/70
[2017-06-10 14:34] VITALS: BP 140/70
--- NOTE | 2017-06-10 14:54 | Patient Discharge Instructions ---
Discharge Instructions General Discharge Information You were seen/treated for: A. fib with RVR Abdominal discomfort Special Instructions: -Please follow-up with your primary care physician within 3-5 days. -Please follow-up with the television engineer, Dr. Lantigua within 7 days. You may need to call his office to schedule an appointment based on your convenience. We have provided you referral. Diet Recommended Diet: Heart Healthy Activity Additional ACTIVITY Info: As tolerated Acute Coronary Syndrome Inclusion Criteria At DC or during hospital stay patient has or had the following: ACS DIAGNOSIS No Discharge Core Measures Meds if any: Prescribed or Continued at Discharge Meds if any: NOT Prescribed or Continued at Discharge Congestive Heart Failure Inclusion Criteria At DC or during hospital stay patient has or had the following: CHF DIAGNOSIS No Discharge Core Measures Meds if any: Prescribed or Continued at Discharge Meds if any: NOT Prescribed or Continued at Discharge Cerebrovascular accident Inclusion Criteria At DC or during hospital stay patient has or had the following: CVA/TIA Diagnosis No Discharge Core Measures Meds if any: Prescribed or Continued at Discharge Meds if any: NOT Prescribed or Continued at Discharge Venous thromboembolism Inclusion Criteria VTE Diagnosis No VTE Type NONE VTE Confirmed by (Test) NONE Discharge Core Measures - Per Current guidelines, there needs to be overlap - treatment for the first 5 days of Warfarin therapy. - If discharged on Warfarin prior to 5 days of - overlap therapy, the patient will need to be - assessed for post discharge needs including - *Post discharge parental anticoagulation - *Warfarin and/or parental anticoagulation education - *Follow up date to check INR post discharge At least 5 days overlap therapy as Inpatient No Meds if any: Prescribed or Continued at Discharge Note: Overlap Therapy is Warfarin and Anticoagulant Meds if any: NOT Prescribed or Continued at Discharge
--- NOTE | 2017-06-10 16:18 | PN- Cardiology ---
Subjective Subjective: * No current complaints. Patient has concern regarding nausea with Amiodarone. * atrial fibrillation with increased heart rate * creatinine 1.7 * left pleural effusion Objective Vital Signs and I&Os Vital Signs Date Time Temp Pulse Resp B/P B/P Pulse O2 O2 Flow FiO2 Mean Ox Delivery Rate 06/10 1451 126 06/10 1434 97.6 120 20 140/70 94 Room Air 06/10 1238 81 150/64 06/10 1002 85 144/70 06/10 0800 95 Room Air 06/10 0653 97.7 86 20 144/70 95 Room Air 06/09 2253 98.1 85 20 134/70 93 Room Air 06/09 2158 88 148/78 06/09 2156 88 148/78 Intake & Output 06/10 1600 06/10 0800 06/10 0000 06/09 1600 06/09 0800 06/09 0000 Intake Total 120 420 600 110 320 Output Total Balance 120 420 600 110 320 Intake, IV 10 Intake, Oral 120 420 600 100 320 Patient 187 lb 189 lb Weight Weight Bed scale Bed scale Measurement Method Physical Exam: General: WD/obese male in NAD; alert and oriented x 3 HEENT: NC/AT, PERRL, EOMI Neck: no JVD, no carotid bruit Heart: irregularly irregular 2/6 systolic murmur Lungs: clear bilaterally 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 His cardiac cath from 2004 shows a total chronic occlusion of the mid LAD and proximal RCA with a 60% ostial stenosis of the LCX. SVG's to the D1 and RCA are both totally occluded. A radial artery graft to the OM1 was patent. The BOO to the LAD dis patnet with severe disease distally in the LAD. His EF in 2004 was 25%. Medical management was pursued. * This patient has paroxysmal atrial fibrillation with increased heart rate. I suspect he has frequent paroxysms of this dysrhythmia which ultimately results in lightheadedness and at times chest pain. I think it is prudent to try and maintain a sinus rhythm in this patient who does not tolerate tachycardia well and is reluctant to be on chronic anticoagulation. In addition, he does have a low EF and renal dysfunction. Continue Amiodarone 400mg BID. We will monitor for continuing nausea since the patient thinks that this medications is causing this symptom. We will load him for two week and then decrease the dose to 200mg daily. I do believe he should still be on chronic anticoagulation with Eliquis 2.5mg BID if he is willing to take it. * This patient has evidence of myocardial ischemia. I am suspicious that his dental pain may be cardiac pain radiating toward his jaw. We will consider a stess test. For now continue his Isosorbide, aspirin at 81mg daily, ACEI and statin. Continue telemetry? Yes
[2017-06-10 21:45] VITALS: BP 98/48
[2017-06-10 22:48] VITALS: BP 112/52
[2017-06-11 06:59] VITALS: BP 134/60
--- NOTE | 2017-06-11 07:15 | PN- Housestaff ---
DamienanaLorenzo williamson 06/11/17 0714: Subjective Follow-up For: David monroe with RVR Abdominal discomfort Complaints: intermittent generalized abdominal pain. Tele-Events Since Last Visit: NSR, sinus bradycardia, first-degree AV block. Intermittent PVCs. HR 55-72 BPM. Single episode of HR 1:28 PM at 6 AM. Subjective: There were no acute events overnight. This morning Mr. Oneill states that he feels better. He does endorse intermittent episodes of nonspecific abdominal discomfort which has been relieved with Levsin. He denies any palpitations, chest pain, shortness of breath, dizziness with ambulation, nausea, vomiting, swelling in his lower extremities. Review of Systems Constitutional: Reports: see HPI. EENTM: Reports: no symptoms. Cardiovascular: Reports: see HPI. Respiratory: Reports: no symptoms. Gastrointestinal: Reports: see HPI. Genitourinary: Reports: no symptoms. Musculoskeletal: Reports: no symptoms. Skin: Reports: no symptoms. Objective Last 24 Hrs of Vital Signs/I&O Vital Signs Date Time Temp Pulse Resp B/P B/P Pulse O2 O2 Flow FiO2 Mean Ox Delivery Rate 06/11 0821 78 134/60 06/11 0821 78 134/60 06/11 0659 78 16 134/60 95 Room Air 06/10 2313 70 112/52 06/10 2248 112/52 06/10 2148 129 95/58 06/10 2145 97.7 90 20 98/48 95 Room Air 06/10 1600 94 Room Air 06/10 1451 126 06/10 1434 97.6 120 20 140/70 94 Room Air 06/10 1238 81 150/64 Intake & Output 06/11 1600 06/11 0800 06/11 0000 Intake Total 104 470 Output Total Balance 104 470 Intake, IV 4 10 Intake, Oral 100 460 Patient 188 lb Weight Physical Exam General Appearance: Alert, Cooperative, No Acute Distress Skin: No Breakdown HEENT: Mucous Membr. moist/pink Cardiovascular: Regular Rate, Normal S1, Normal S2 Lungs: Clear to Auscultation, Normal Air Movement Abdomen: Normal Bowel Sounds, Soft, No Tenderness Neurological: Normal Speech Current Medications: Current Medications Sig/Marco A Start time Last Medication Dose Route Stop Time Status Admin Acetaminophen 650 MG ONCE ONE 06/115 DC 06/11 PO 06/12 315 0306 Amiodarone HCl 400 MG BID 06/08 2199 AC 06/11 PO 0821 Apixaban 2.5 MG BID 06/08 2200 AC 06/11 PO 0820 Aspirin Buffered 81 MG QAM 06/09 1000 AC 06/11 PO 0820 Atorvastatin Calcium 20 MG 1700 06/08 1700 AC 06/11 PO 1644 Calcium Carbonate 500 MG DAILY 06/09 1000 AC 06/11 PO 0819 Diltiazem HCl 125 MG Q24H 06/10 1615 DC Sodium Chloride 100 ML IV Hyoscyamine 0.125 MG BID PRN 06/10 1515 AC 06/11 PO 0819 Isosorbide 60 MG QPM 06/08 2200 AC 06/10 Mononitrate PO 2148 Lisinopril 10 MG DAILY 06/10 1100 AC 06/11 PO 0821 Last 24 Hrs of Lab/Sameer Results Last 24 Hrs of Labs/Mics: Laboratory Tests 06/11/17 0643: Anion Gap 15, Estimated GFR 41 L, BUN/Creatinine Ratio 15.6 06/11/17 0600: CBC w Diff Cancelled, WBC Cancelled, RBC Cancelled, Hgb Cancelled, Hct Cancelled , MCV Cancelled, MCH Cancelled, MCHC Cancelled, RDW Cancelled, Plt Count Cancelled, MPV Cancelled, Tacrolimus Cancelled Assessment/Plan Assessment: 82-year-old gentleman with a PMH of HTN, HLD, HFreEF (25% on echo in 2004), paroxysmal A. fib and CAD s/p cardiac catheterization (2004) with total chronic occlusion of mid LAD and proximal RCA, 60% ostial stenosis of LCx, SVG's to the D1 and RCA both totally occluded, patent radial artery graft to OM1, BOO to LAD patent with severe disease distally to LAD. Patient was recently admitted to [facility] with A. fib and RVR converted back to NSR, sent home on amiodarone but returned with complaints of nausea and shortness of breath, found to be back in A. fib with RVR which has been well controlled with diltiazem drip (since discontinued). Patient is currently on amiodarone 400 mg BID, eliquis 2.5mg BID, Ecotrin 81 mg daily, lisinopril 10 mg. Problem list: 1. A. fib with RVR 2. History of HFrEF 3. CAD 4. Dyspepsia 5. Constipation Plan: * Heart rate has been well controlled with a past 24 hours. Will discuss with cardiology as to ideal duration to monitor him on his current dose of amiodarone. Will recheck magnesium and phosphorus levels and supplement his subtherapeutic * Continue with antispasmodic Levsin. However, this medication can be associated with palpitations/tachycardia due to anticholinergic activity. Patient is not amenable to starting on anti-constipation medication despite no regular bowel movement in the past 24 hours. Encouraged patient to try prune juice and if no regular BM, start him on senna and Colace Problem List: 1. Atrial fibrillation with RVR 2. Nausea Pain Ratin Pain Location: NA Pain Goal: Pain 4 or less Pain Plan: NA Tomorrow's Labs & Rationales: BEP, magnesium, phopshorus: CKD pt with persitent Afib with RVR DVT/Prophylaxis: pharmacological Selvin Morales 06/11/17 1319: Attending MD Review Statement Attending Statement Attending MD Statement: examined this patient, discuss w/resident/PA/BOARD MEMBER, agreed w/resident/PA/BOARD MEMBER, discussed with family, reviewed EMR data (avail), discussed with nursing, discussed with case mgmt, reviewed images, amended to note Attending Assessment/Plan: Patient here for rapid afib with rvr controlled with iv cardizem. Cardiology consulted. Serial cardiac enzymes negative for AR. ECHO with EF 25-30%. Amiodarone PO, montior heart rythm. [facility] Faxed information. anticipate dc planning.
--- NOTE | 2017-06-11 07:22 | Discharge Summary ---
Visit Information Visit Dates Admission Date: 06/08/17 Hospital Course Course Attending Physician: Selvin Morales MD Primary Care Physician: Jl Anders MD Allergies: Coded Allergies: No Known Allergies (06/05/17) Disposition Summary Disposition Discharge Disposition: home or self care Discharge Instructions General Discharge Information Code Status: Full Code Patient's Diet: Heart Healthy Patient's Activity: As tolerated Follow-Up Instructions/Appts: Please follow-up with your primary care physician within 3-5 days. Please follow-up with the cardiology is Dr. Lantigua at within 7 days. You may need to call his office to schedule an appointment based on your convenience. We have provided you referral. Medications at Discharge Discharge Medications: Stop taking the following medications: Ibuprofen (Advil) 200 MG CAPSULE ORAL as needed for PAIN/INFLAMMATION Amiodarone (Cordarone) 200 MG TAB ORAL SEE INSTRUCTIONS Qty = 30 Continue taking these medications: Lisinopril (Prinivil) 10 MG TABLET 1 Tablet ORAL Every Morning Comments: Last Taken: 06/12/17 Time:12PM Simvastatin (Zocor*) 40 MG TABLET 1 Tablet ORAL Every night Comments: GIVEN ATORVASTATIN (LIPITOR) 20MG IN [facility] Last Taken: 06/11/17 Time:4PM Isosorbide Mononitrate (Isosorbide Mononitrate ER) 60 MG TAB.ER.24H 1 Tablet ORAL Every night Comments: Last Taken: 06/11/17 Time:1OPM Aspirin (Ecotrin*) 81 MG TABLET.DR 1 Tablet ORAL Every Morning Comments: Last Taken: 06/12/17 Time:0930 Apixaban (Eliquis) 2.5 MG TABLET 2.5 Milligram ORAL TWICE DAILY Qty = 60 Instructions: . Comments: Last Taken: 06/12/17 Time:0930 Calcium Carbonate (TUMS) 200 MG CALCIUM (500 MG) TAB.CHEW 1 Tablet ORAL DAILY as needed for GI upset Comments: Last Taken:06/11/17 Time:0900 Start taking the following new medications: Hyoscyamine (Levsin) 0.125 MG TABLET 1 Tablet ORAL TWICE DAILY as needed for GI upset Qty = 14 No Refills Comments: Last Taken:06/12/17 Time:0900 Amiodarone (Cordarone) 200 MG TAB 0 ORAL SEE INSTRUCTIONS Qty = 68 No Refills Instructions: 2 tabs(400MG) BID until 06/21/17 then take 1 tab(200MG) BID from 06/22/17 Comments: Last Taken:06/12/17 Time:0900 Copies To: Martita SETH,Jl Montoya; Grzegorz SETH PHD,Norman Lee Attending MD Review Statement Documenting Attending: Andrew SETH,Selvin Other Findings: Patient here for rapid afib with rvr controlled with iv cardizem. Cardiology consulted. Serial cardiac enzymes negative for PA. ECHO with EF 25-30%. No new complaints. Overnight uneventful. (his had fall and eager to discharge today) Amiodarone PO, montior heart rythm. [facility] with [facility] cardiac [facility]. Anticipate dc planning today with outpatient follow up with cardiology Dr Lantigua in few days of discharge. Cardiac cath as per cardiology.
[2017-06-11 14:18] VITALS: BP 126/62
--- NOTE | 2017-06-11 21:49 | PN- Cardiology ---
Subjective Subjective: * Patient reports some minor abdominal discomfort. No nausea. * sinus rhythm * creatinine 1.6 Objective Vital Signs and I&Os Vital Signs Date Time Temp Pulse Resp B/P B/P Pulse O2 O2 Flow FiO2 Mean Ox Delivery Rate 06/11 2120 64 134/62 06/11 2120 74 134/62 06/11 1600 Room Air 06/11 1418 97.9 64 20 126/62 94 Room Air 06/11 0821 78 134/60 06/11 0821 78 134/60 06/11 0659 78 16 134/60 95 Room Air 06/10 2313 70 112/52 06/10 2248 112/52 06/10 2148 129 95/58 06/10 2145 97.7 90 20 98/48 95 Room Air Intake & Output 06/11 1600 06/11 0806/11 0000 06/10 1600 06/10 0806/10 0000 Intake Total 500 104 470 515 120 420 Output Total Balance 500 104 470 515 120 420 Intake, IV 4 10 15 Intake, Oral 500 100 460 500 120 420 Patient 188 lb 187 lb Weight Weight Bed scale Measurement Method Physical Exam: General: WD/obese male in NAD; alert and oriented x 3 HEENT: NC/AT, PERRL, EOMI Neck: no JVD, no carotid bruit Heart: RRR with 2/6 systolic murmur Lungs: clear bilaterally 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 His cardiac cath from 2004 shows a total chronic occlusion of the mid LAD and proximal RCA with a 60% ostial stenosis of the LCX. SVG's to the D1 and RCA are both totally occluded. A radial artery graft to the OM1 was patent. The BOO to the LAD dis patnet with severe disease distally in the LAD. His EF in 2004 was 25%. Medical management was pursued. * This patient has paroxysmal atrial fibrillation with increased heart rate. I suspect he has frequent paroxysms of this dysrhythmia which ultimately results in lightheadedness and at times chest pain. He is now on Amiodarone and is in a sinus rhythm on this medication. I think it is prudent to try and maintain a sinus rhythm in this patient who does not tolerate tachycardia well and is reluctant to be on chronic anticoagulation. In addition, he does have a low EF and renal dysfunction. We will load him for two week and then decrease the dose to 200mg daily. I do believe he should still be on chronic anticoagulation with Eliquis 2.5mg BID if he is willing to take it. * This patient has evidence of myocardial ischemia. I am suspicious that his dental pain may be cardiac pain radiating toward his jaw. Obtain a pharmacologic stess test to assess for a large region of ischemia or life threatening ischemia. For now continue his Isosorbide, aspirin at 81mg daily, ACEI and statin. Continue telemetry? Yes
[2017-06-12 06:38] VITALS: BP 130/60
[2017-06-12 08:41] VITALS: BP 130/60
--- NOTE | 2017-06-12 09:32 | PN- Housestaff ---
Tonie Toure 06/12/17 0931: Subjective Follow-up For: David monroe with RVR Abdominal discomfort Tele-Events Since Last Visit: Normal sinus rhythm, first-degree AV block, intermittent PVCs Subjective: The patient was seen and examined. He offers no complaints. He denies any headache, dizziness, lightheadedness, chest, submitted breath, nausea, vomiting, abdominal pain. He mentions that hyoscyamine has been helping with his abdominal discomfort and feeling of nausea. Vital signs her heart rate remained stable. Review of Systems Constitutional: Reports: no symptoms. Objective Last 24 Hrs of Vital Signs/I&O Vital Signs Date Time Temp Pulse Resp B/P B/P Pulse O2 O2 Flow FiO2 Mean Ox Delivery Rate 06/12 0841 130/60 06/12 0840 130/60 06/12 0638 97.6 64 20 130/60 94 Room Air 06/11 2234 98.0 111 20 94 Room Air 06/111 64 134/62 06/11 2121 74 134/62 Intake & Output 06/12 1600 06/12 0800 06/12 0000 Intake Total 400 550 Output Total 700 375 Balance -300 175 Intake, IV 200 Intake, Oral 400 350 Output, Urine 700 375 Patient 188 lb Weight Weight Bed scale Measurement Method Physical Exam General Appearance: Alert, Oriented X3, Cooperative, No Acute Distress Other Physical Findings: Skin: No Breakdown HEENT: Mucous Membr. moist/pink Cardiovascular: Regular Rate, Normal S1, Normal S2 Lungs: Clear to Auscultation, Normal Air Movement Abdomen: Normal Bowel Sounds, Soft, No Tenderness Neurological: Normal Speech Current Medications: Current Medications Sig/Marco A Start time Last Medication Dose Route Stop Time Status Admin Amiodarone HCl 400 MG BID 06/08 2199 DCD 06/12 PO 0841 Apixaban 2.5 MG BID 06/08 2199 DCD 06/12 PO 0840 Aspirin Buffered 81 MG QAM 06/09 1000 DCD 06/12 PO 0840 Atorvastatin Calcium 20 MG 1700 06/08 1700 DCD 06/11 PO 1644 Calcium Carbonate 500 MG DAILY 06/09 1000 DCD 06/11 PO 0819 Hyoscyamine 0.125 MG BID PRN 06/10 1515 DCD 06/12 PO 0847 Isosorbide 60 MG QPM 06/08 2199 DCD 06/11 Mononitrate PO 2121 Lisinopril 10 MG DAILY 06/10 1100 DCD 06/12 PO 0840 Patient Medication 1 ED ONE ONE 06/12 1000 DC Teaching ED 06/12 1001 Last 24 Hrs of Lab/Sameer Results Last 24 Hrs of Labs/Mics: Laboratory Tests 06/12/17 0640: Anion Gap 12, Estimated GFR 39 L, BUN/Creatinine Ratio 15.9, Phosphorus 4.4, Magnesium 1.9 Assessment/Plan Assessment: This is an 82-year-old gentleman with a PMH of HTN, HLD, HFreEF (25% on echo in 2004), paroxysmal A. fib and CAD s/p cardiac catheterization (2004) with total chronic occlusion of mid LAD and proximal RCA, 60% ostial stenosis of LCx, SVG's to the D1 and RCA both totally occluded, patent radial artery graft to OM1, BOO to LAD patent with severe disease distally to LAD. Patient was recently admitted to [facility] with A. fib and RVR converted back to NSR, sent home on amiodarone but returned with complaints of nausea and shortness of breath, found to be back in A. fib with RVR which has been well controlled with diltiazem drip (since discontinued). Patient is currently on amiodarone 400 mg BID, eliquis 2.5mg BID, Ecotrin 81 mg daily, lisinopril 10 mg. Problem list: 1. A. fib with RVR 2. History of HFrEF 3. CAD 4. Dyspepsia 5. Constipation Plan: * Heart rate continues to be well controlled. * Per cardiology recs will discharge with 10 additional days of amiodarone 400 mg twice a day and then they decrease the dose to 200 mg daily. Patient advised to follow with legal compliance officer as soon as possible. * Continue Eliquis, statin, aspirin, BECKY, Isosorbide * He was advised not to take any NSAIDs given minimal worsening of his kidney functions. * magnesium and phosphorus levels wnl * Continue with antispasmodic Levsin. However, this medication can be associated with palpitations/tachycardia due to anticholinergic activity. To be discharged with a limited supply of hyoscyamine. Advised to follow-up with his primary care. * Patient is not amenable to starting on anti-constipation medication despite no regular bowel movement in the past 24 hours. Encouraged patient to try prune juice and if no regular BM, start him on senna and Colace Problem List: 1. Atrial fibrillation with RVR 2. Nausea Pain Ratin Pain Location: NA Pain Goal: Remain pain free Pain Plan: NA Tomorrow's Labs & Rationales: DANYEL Selvin Morales 06/12/17 1150: Attending MD Review Statement Attending Statement Attending MD Statement: examined this patient, discuss w/resident/PA/PARASITOLOGIST, agreed w/resident/PA/PARASITOLOGIST, discussed with family, reviewed EMR data (avail), discussed with nursing, discussed with case mgmt, reviewed images, amended to note Attending Assessment/Plan: Patient here for rapid afib with rvr controlled with iv cardizem. Cardiology consulted. Serial cardiac enzymes negative for [place]. ECHO with EF 25-30%. No new complaints. Overnight uneventful. (his had fall and eager to discharge today) Amiodarone PO, montior heart rythm. [facility]. Anticipate dc planning today with outpatient follow up with cardiology Dr Lantigua in few days of discharge. Cardiac cath as per cardiology.
[2017-06-12] MEDS ORDERED: LEVSIN0.125 M1 PO (11:12)
[2017-06-12] MEDS ORDERED: AMIODARONE HCL200 M1 PO (11:12)
[2017-06-12] MEDS ORDERED: TUMS200 MG PO (11:34)
--- NOTE | 2017-06-12 17:43 | Event Note ---
Event Note Event Note: Patient discharge medication of amiodarone was sent to the pharmacy as 400 mg twice a day for 10 days and then 200 mg twice a day, called the pharmacy changed it to 400 mg twice a day for 10 days and 200 mg daily afterwards. After the patient was discharged. Nursing staff noted possible arrhythmia on the heart monitor. Ordered 12-lead EKG which did not reveal any significant change from prior EKG. No sign of acute infarction. Patient is asymptomatic. Discussed with attending Dr. Morales. We'll discharge the patient.
--- NOTE | 2017-06-12 22:51 | PN- Cardiology ---
Subjective Subjective: * No chest discomfort, shortness of breath or lightheadedness. * Brief periods of type 1 second degree AV block which are asymptomatic. Objective Vital Signs and I&Os Vital Signs Date Time Temp Pulse Resp B/P B/P Pulse O2 O2 Flow FiO2 Mean Ox Delivery Rate 06/12 0841 130/60 06/12 0840 130/60 06/12 0638 97.6 64 20 130/60 94 Room Air Intake & Output 06/12 1600 06/12 0800 06/12 0000 06/11 1600 06/11 0806/11 0000 Intake Total 400 550 500 104 470 Output Total 700 375 Balance -300 175 500 104 470 Intake, IV 200 4 10 Intake, Oral 400 350 500 100 460 Output, Urine 700 375 Patient 188 lb 188 lb Weight Weight Bed scale Measurement Method Physical Exam: General: WD/obese male in NAD; alert and oriented x 3 HEENT: NC/AT, PERRL, EOMI Neck: no JVD, no carotid bruit Heart: RRR with 2/6 systolic murmur Lungs: clear bilaterally 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 His cardiac cath from 2004 shows a total chronic occlusion of the mid LAD and proximal RCA with a 60% ostial stenosis of the LCX. SVG's to the D1 and RCA are both totally occluded. A radial artery graft to the OM1 was patent. The BOO to the LAD dis patnet with severe disease distally in the LAD. His EF in 2004 was 25%. Medical management was pursued since this patient is non-revascularizable by PCI. He is not interested in any procedures such as redo bypass or ICD. * This patient has paroxysmal atrial fibrillation with increased heart rate. I suspect he has frequent paroxysms of this dysrhythmia which ultimately results in lightheadedness and at times chest pain. He is now on Amiodarone and is in a sinus rhythm on this medication. I think it is prudent to try and maintain a sinus rhythm in this patient who does not tolerate tachycardia well and is reluctant to be on chronic anticoagulation. In addition, he does have a low EF and renal dysfunction. We will load him for two week and then decrease the dose to 200mg daily. I do believe he should still be on chronic anticoagulation with Eliquis 2.5mg BID if he is willing to take it. * This patient has evidence of myocardial ischemia. I am suspicious that his dental pain may be cardiac pain radiating toward his jaw. Obtain a pharmacologic stess test to assess for a large region of ischemia or life threatening ischemia. For now continue his Isosorbide, aspirin at 81mg daily, ACEI and statin. Continue telemetry? No
== END 2017-06-12 14:30 | DRG 309 ==
LOC: ERH 13:36 → ERHI 14:54 → ENRESERV 16:33 → ENTRNSPT 17:34 → EDTRNSPT 17:43 → EDTRNSPTSTS 17:43 → 1NO 17:52 → CMPTRNSPT 18:03 → 1NO 06-10 16:17 → ENPENDDIS 06-12 11:40 → ENTRNSPT 06-12 13:45 → EDTRNSPTSTS 06-12 14:17 → CMPTRNSPT 06-12 14:25 → 1NO 06-12 14:30
PROVIDERS: Emergency Medicine; Student in an Organized Health Care Education/Training Program
DX: I48.0 Paroxysmal atrial fibrillation (principal); I50.22 Chronic systolic (congestive) heart failure; I25.82 Chronic total occlusion of coronary artery; I27.20 Pulmonary hypertension, unspecified; I13.0 Hypertensive heart and chronic kidney disease with heart failure and stage 1 through stage 4 chronic kidney disease, or unspecified chronic kidney disease; Z95.1 Presence of aortocoronary bypass graft; E78.5 Hyperlipidemia, unspecified; N18.9 Chronic kidney disease, unspecified; I25.10 Atherosclerotic heart disease of native coronary artery without angina pectoris; K21.9 Gastro-esophageal reflux disease without esophagitis; I49.3 Ventricular premature depolarization; I49.1 Atrial premature depolarization; K59.00 Constipation, unspecified; I44.0 Atrioventricular block, first degree; Z87.891 Personal history of nicotine dependence; Z89.512 Acquired absence of left leg below knee
CPT/HCPCS: 1NP; 36592; 71045; 82436; 93005; 93010; 96374; 99291

== ENCOUNTER 2017-08-18 11:55 | Inpatient (IN) | payer OTHER, MEDICARE ==
[~2017-08-18] VITALS: Ht 175.3 cm; Wt 78.7 kg
[~2017-08-18 11:55] MED LIST changes: +LEVSIN0.125 M1 PO; -PRINIVIL10 M1 PO; +PRINIVIL5 M1 PO
--- NOTE | 2017-08-18 14:20 | ED GENERAL ADULT ---
See Addendum History of Present Illness General Chief Complaint: General Adult Stated Complaint: LEG SWELLING Source: patient Exam Limitations: no limitations Vital Signs & Intake/Output Vital Signs & Intake/Output Vital Signs Date Time Temp Pulse Resp B/P B/P Pulse O2 O2 Flow FiO2 Mean Ox Delivery Rate 08/18 1744 96.7 63 20 121/55 95 Room Air 08/18 1515 95 Room Air 08/18 1419 73 20 109/77 96 Room Air 08/18 1228 98.2 71 20 136/67 95 Room Air Allergies Coded Allergies: No Known Allergies (06/05/17) Triage Note: PT C/O RIGHT LEG SWELLING AND LEFT THIGH SWELLING. STATES HE TAKES LASIX ORDERED BUT IT HASN'T BEEN HELPING. PT DENIES SOB. Triage Nurses Notes Reviewed? yes Onset: Gradual Duration: day(s): Timing: constant HPI: 82 y/o male with h/o a-fib, HTN, HLD, CAD, s/p CABG, s/p left BKA presenting with bilateral LE edema over the past few days. Reports his LLE edema is preventing his prosthesis from fitting correctly. Was previously put on lasix for his BLE, but stopped taking due to urinary frequency. Resumed his home dose a few days ago without relief. Denies CP, SOB, orthopnea. Pt also presents with outpatient lab slip for bloodwork, requesting to get bloodwork done while in the ER. Pt also with cough x2 months, was initially productive, but now with just a dry non-productive cough. Endorses associated rhinorrhea. Denies fevers, sore throat, abd pain, NVD, dysuria. (Iwona Davis) Reconcile Medications Amiodarone (Cordarone) 200 MG TAB 1 TAB PO DAILY AFIB (Reported) Apixaban (Eliquis) 2.5 MG TABLET 2.5 MG PO BID Anticoagulation . Aspirin (Ecotrin*) 81 MG TABLET.DR 1 TAB PO QAM HEART/BLOOD (Reported) Atorvastatin Calcium (Lipitor) 20 MG TABLET 1 TAB PO DAILY HLD (Reported) Calcium Carbonate (TUMS) 200 MG CALCIUM (500 MG) TAB.CHEW 1 TAB PO DAILY PRN GI upset (Reported) Furosemide (Lasix) 20 MG TABLET 1 TAB PO DAILY CHF (Reported) Isosorbide Mononitrate (Isosorbide Mononitrate ER) 60 MG TAB.ER.24H 1 TAB PO QPM HEART (Reported) Lisinopril (Prinivil) 5 MG TABLET 1 TAB PO DAILY CHF (Reported) (Gretchen SETH,Raji Calloway) Past History Travel History Traveled to [place] past 21 day No Medical History Any Pertinent Medical History? 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 No (Iwona Davis) Review of Systems Review of Systems Constitutional: Reports: no symptoms. EENTM: Reports: no symptoms. Respiratory: Reports: see HPI. Cardiovascular: Reports: see HPI. GI: Reports: no symptoms. Genitourinary: Reports: no symptoms. Musculoskeletal: Reports: no symptoms. Skin: Reports: no symptoms. Neurological/Psychological: Reports: no symptoms. Hematologic/Endocrine: Reports: no symptoms. Immunologic/Allergic: Reports: no symptoms. (Iwona Davis) Physical Exam Physical Exam General Appearance: well developed/nourished, no apparent distress, alert, awake , comfortable Head: atraumatic, normal appearance Eyes: Bilateral: normal appearance. Ears, Nose, Throat: normal ENT inspection Neck: normal inspection Respiratory: normal breath sounds, lungs clear Cardiovascular: regular rate/rhythm Gastrointestinal: soft, non-tender Back: normal inspection Extremities: normal range of motion, trace pitting edema to the right lower extremity, no objective edema on exam to the left thigh. No erythema or increased warmth. Right distal pulses not palpable, +DP and PT pulses with doppler. Neurologic/Psych: awake, alert, oriented x 3, normal mood/affect Skin: intact, normal color, warm/dry Core Measures ACS in differential dx? No CVA/TIA Diagnosis: No Sepsis Present: No Sepsis Focused Exam Completed? No (Iwona Davis) Progress Differential Diagnoses I considered the following diagnoses in my evaluation of the patient: [Chronic edema vs CHF vs renal failure vs PNA vs bronchitis, low concern for ACS vs PE] Plan of Care: Orders Procedure Date/time Status CHF Diet 08/19 B Active CBC WITHOUT DIFFERENTIAL 08/19 599 Active BASIC ELECTROLYTES PLUS BUN&CR 08/19 599 Active CHF Diet 08/18 D Complete TROPONIN LEVEL 08/18 2100 Active EKG 08/18 2100 Active Pathway - chart 08/18 1805 Active House Staff 08/18 1805 Active Patient Data 08/18 1705 Active ED Holding Orders 08/18 1636 Active Admit to inpatient 08/18 1636 Active Vital Signs 08/18 1636 Active Code Status 08/18 1636 Active BLOOD CULTURE 08/18 1614 Active EKG 08/18 1444 Active Intake & Output 08/18 1418 Active TROPONIN LEVEL 08/18 1359 Complete COMPREHENSIVE METABOLIC PANEL 08/18 1359 Complete CBC WITHOUT DIFFERENTIAL 08/18 1359 Complete B-TYPE NATRIURETIC PEP (BNP) 08/18 1359 Complete CHF Core Measures 08/18 UNK Active Weight 08/18 UNK Active VTE Mechanical Prophylaxis 08/18 UNK Active Activity/Ambulation 08/18 UNK Active Current Medications Sig/Marco A Start time Last Medication Dose Stop Time Status Admin Amiodarone HCl 200 MG DAILY 08/19 09 AC (Cordarone) Aspirin Buffered 81 MG QAM 08/19 09 AC (Ecotrin) Atorvastatin Calcium 20 MG DAILY 08/19 09 AC (Lipitor) Lisinopril 5 MG DAILY 08/19 09 AC (Prinivil) Heparin Sodium 5,000 UNIT Q8 08/18 2200 AC (Porcine) Apixaban 2.5 MG BID 08/18 2099 AC (Eliquis) Isosorbide 60 MG QPM 08/18 2099 AC Mononitrate (Imdur) Furosemide 40 MG 7:30 AM, & 4:30 PM 08/18 1815 AC (Lasix) Acetaminophen 650 MG Q6P PRN 08/18 1800 AC (Tylenol) Laboratory Tests 08/18/17 1420: Anion Gap 14, Estimated GFR 34 L, BUN/Creatinine Ratio 14.7, Glucose 123 H, Calcium 9.2, Total Bilirubin 0.7, AST 19, ALT 29, Alkaline Phosphatase 85, Troponin I 0.01, Nbx-[id number] Pept 2980 H, Total Protein 6.8, Albumin 3.9, Globulin 2.9, Albumin/Globulin Ratio 1.3, CBC w Diff NO MAN DIFF REQ, RBC 4.78, MCV 85.4, MCH 28.4, MCHC 33.3, RDW 14.9 H, MPV 7.8, Gran % 78.9 H, Lymphocytes % 12.4 L, Monocytes % 5.7, Eosinophils % 2.4, Basophils % 0.6, Absolute Granulocytes 5.3, Absolute Lymphocytes 0.8 L, Absolute Monocytes 0.4, Absolute Eosinophils 0.2, Absolute Basophils 0 Microbiology 08/18 1645 BLOOD: Blood Culture - RECD 08/18 1630 BLOOD: Blood Culture - RECD CXR concerning for PNA, pt reports recent one week admission ~1 month ago, will cover for HCAP with vanc/ceftax/azithro EKG is non-ischemic, trop neg Labs show elevated bnp to [address] Lantigua, will obtain inpatient echo US neg for DVT, but showed arterial and graft occlusions, discucsed with vascular, likely chronic occlusion since extremities are warm, will consult during inpatient stay Discussed with EDMD, hospitalist, and MOD. Will admit to tele. Initial ED EKG: rhythm (sinus), first degree AV block PVC's (Iwona Davis) Departure Departure Disposition: STILL A PATIENT Condition: Stable Clinical Impression Primary Impression: HCAP (healthcare-associated pneumonia) Secondary Impressions: Elevated brain natriuretic peptide (BNP) level, Lower extremity edema Referrals: Martita SETH,Jl Montoya (PCP/Family) Departure Forms: Customer Survey General Discharge Information (Iwona Davis) PA/FINISHING ROOM SUPERVISOR Co-Sign Statement Statement: ED Attending supervision documentation- [X] I saw and evaluated the patient. I have also reviewed all the pertinent lab results and diagnostic results. I agree with the findings and the plan of care as documented in the PA's/FINISHING ROOM SUPERVISOR's documentation. [X] I have reviewed the ED Record and agree with the PA's/FINISHING ROOM SUPERVISOR's documentation. [] Additions or exceptions (if any) to the PAs/FINISHING ROOM SUPERVISOR's note and plan are summarized below: [Patient to be admitted to telemetry service with cardiology consultation for fluid overload. Patient has stopped his Lasix and then he began to swell up. Patient will also have vascular consultation.] (Gretchen SETH,Raji Calloway) Critical Care Note Critical Care Note Critical Care Time: non-applicable (Darnell BECK,Iwona)
[2017-08-18 14:36] LABS: ABSOLUTE BASOPHIL COUNT 0 /CUMM (0.0-0.2); ABSOLUTE EOSINOPHIL COUNT 0.2 /CUMM (0.0-0.7); ABSOLUTE GRANULOCYTE CT 5.3 /CUMM (1.4-6.5); ABSOLUTE LYMPH COUNT 0.8 /CUMM (1.2-3.4); ABSOLUTE MONOCYTE COUNT 0.4 /CUMM (0.10-0.60); BASOPHIL % 0.6 % (0.0-2.0); EOSINOPHIL % 2.4 % (0-5); GRANULOCYTE % 78.9 % (42.2-75.2); HEMATOCRIT 40.8 % (42-52); MEAN CORPUSCULAR HGB 28.4 PG (27.0-31.0); MEAN CORPUSCULAR HGB CONC 33.3 G/DL (33.0-37.0); MEAN CORPUSCULAR VOLUME 85.4 FL (80.0-94.0); MEAN PLATELET VOLUME 7.8 FL (7.4-10.4); PLATELET COUNT 256 /CUMM (130-400); RBC DISTRIBUTION WIDTH 14.9 % (11.5-14.5); RED BLOOD CELL CT 4.78 /CUMM (4.70-6.10); WHITE BLOOD CELL COUNT 6.7 /CUMM (4.8-10.8)
--- NOTE | 2017-08-18 14:44 | RADIOLOGY REPORT ---
EXAMINATION: XR CHEST CLINICAL INFORMATION: CHF. Cough COMPARISON: Chest x-ray dated 06/08/2017 TECHNIQUE: 2 views of the chest were obtained. FINDINGS: Status post median sternotomy and CABG. Cardiomegaly. Small to moderate left-sided effusion demonstrates interval increase. There is associated infiltrate or atelectasis left base. Trace right-sided effusion. Decreased aeration noted in bilateral bases. IMPRESSION: Slight interval increase left-sided effusion with associated left basilar infiltrate or atelectasis. Trace right effusion. Persistent cardiomegaly.
--- NOTE | 2017-08-18 15:39 | ULTRASOUND REPORT ---
EXAMINATION: US TRIPLEX OF LOWER EXTREMITIES, BILATERAL CLINICAL INFORMATION: Bilateral lower extremity swelling. COMPARISON: None TECHNIQUE: Color-flow triplex imaging with spectral analysis and compression Doppler were performed on the lower extremities. FINDINGS: Respiratory variation, normal compression and augmented flow are noted throughout the lower extremities. The visualized common femoral vein, superficial femoral vein, profunda femoral vein, popliteal vein and midcalf peroneal and posterior tibial venous segments show no evidence of deep venous thrombosis. There is no Henderson's cyst. Incidental note made of segmental occlusion of the right superficial femoral artery with collateralization. Incidental note made of occlusion of the left femoral bypass graft. IMPRESSION: Negative for DVT bilateral lower extremities. Bilateral peripheral arterial disease with segmental occlusion right superficial femoral artery and occlusion of the left femoral bypass graft.
--- NOTE | 2017-08-18 16:20 | Cons- Cardiology ---
General Information and HPI Consulting Request Date of Consult: 08/18/17 Requested By: ER History of Present Illness: Mr. Oneill is an 82 year old male with history of hypertension, dyslipidemia and coronary artery disease status post CABG in 1996 with stent placement in 2001. He presents to the ER for evaluation of bilateral leg swelling. He was recently seen both in the hospital and in the office and was treated with lasix for heart failure which was serving him well. He recently opted to stop this medication on his own because it was making him urinate. Having done this, his symptoms of heart failure returned with shortness of breath, orthopnea, cough and leg swelling. He otherwise denies chest pain, pressure, tightness, lightheadedness or palpitations. In the ER the patient is noted to have an elevated BNP and left pleural effusion. His WBC count is normal. To review this patient's recent cardiac history, in June this patient presented to the ER with complaints of chest discomfort, lightheadedness and palpitations . He was found to be in atrial fibrillation with increased heart rate at that time. The patient does have a history of non-compliance with medications and office follow up. I started Amiodarone to maintain a sinus rhythm and he is now in sinus rhythm with a very long first degree AV block and RBBB. It is noted that his creatinine is mildly elevated to 1.9. A cardiac catheterization done at the [facility] in 2004 showed a chronic total occlusion of the mid LAD and RCA. There is a 60% ostial LCX lesion. The SVG to the first diagonal branch and RCA are both totally occluded. The radial artery graft to the OM1 is patent. The BOO graft to the LAD is patent with severe disease of the distal LAD. His EF at that time was 25%. His latest echo shows an EF of 25-30% with trace MR,TR, AI and PI with mild pulmonary hypertension. The patient is not interested in an ICD or redo bypass surgery. Allergies/Medications Allergies: Coded Allergies: No Known Allergies (06/05/17) Home Med List: Amiodarone (Cordarone) 200 MG TAB 1 TAB PO DAILY AFIB (Reported) Apixaban (Eliquis) 2.5 MG TABLET 2.5 MG PO BID Anticoagulation . Aspirin (Ecotrin*) 81 MG TABLET.DR 1 TAB PO QAM HEART/BLOOD (Reported) Atorvastatin Calcium (Lipitor) 20 MG TABLET 1 TAB PO DAILY HLD (Reported) Calcium Carbonate (TUMS) 200 MG CALCIUM (500 MG) TAB.CHEW 1 TAB PO DAILY PRN GI upset (Reported) Furosemide (Lasix) 20 MG TABLET 1 TAB PO DAILY CHF (Reported) Isosorbide Mononitrate (Isosorbide Mononitrate ER) 60 MG TAB.ER.24H 1 TAB PO QPM HEART (Reported) Lisinopril (Prinivil) 5 MG TABLET 1 TAB PO DAILY CHF (Reported) Review of Systems Review of Systems: A twelve point review of systems is remarkable for cough. 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 Ambulation: cane Exam & Diagnostic Data Vital Signs and I&O Vital Signs Date Time Temp Pulse Resp B/P B/P Pulse O2 O2 Flow FiO2 Mean Ox Delivery Rate 08/18 1515 95 Room Air 08/18 1419 73 20 109/77 96 Room Air 08/18 1228 98.2 71 20 136/67 95 Room Air Intake & Output 08/18 1600 08/18 0800 08/18 0000 08/17 1600 08/17 0800 08/17 0000 Intake Total Output Total Balance Patient 185 lb Weight Weight Reported by Patient Measurement Method Physical Exam: General: WD/obese male in NAD; alert and oriented x 3 HEENT: NC/AT, PERRL, EOMI Neck: no JVD, no carotid bruit Heart: RRR with 2/6 systolic murmur Lungs: clear bilaterally Extremities: 2+ edema, left BKA Assessment/Plan Assessment/Plan * This patient has a low EF. His cardiac cath from 2004 shows a total chronic occlusion of the mid LAD and proximal RCA with a 60% ostial stenosis of the LCX. SVG's to the D1 and RCA are both totally occluded. A radial artery graft to the OM1 was patent. The BOO to the LAD dis patnet with severe disease distally in the LAD. His EF in 2004 was 25%. Medical management was pursued. * This patient has paroxysmal atrial fibrillation with increased heart rate. I suspect he has frequent paroxysms of this dysrhythmia which ultimately results in lightheadedness and at times chest pain. He is now on Amiodarone and is in a sinus rhythm on this medication. I think it is prudent to try and maintain a sinus rhythm in this patient who does not tolerate tachycardia well and is reluctant to be on chronic anticoagulation. In addition, he does have a low EF and renal dysfunction. Continue Amiodarone 200mg daily and Eliquis 2.5mg BID. * This patient has evidence of myocardial ischemia. I am suspicious that his previously described dental pain may be cardiac pain radiating toward his jaw. I would be inclined to pursue a cardiac catheterization but the patient is not in agreement with this at this time. For now continue his Isosorbide, aspirin at 81mg daily, ACEI and statin. * This patient has decompensated CHF likely due to his ischemic heart disease and low EF. He should be diuresed with Lasix at 40mg IV BID with careful monitoring of his BuN, creatinine and potassium. I am less suspicious of an infectious infiltrate. Obtain an echocardiogram. Consult Acknowledgment - Thank you for your consult request.
--- NOTE | 2017-08-18 16:53 | History & Physical ---
Jordy SETH,Maria G 08/18/17 9203: General Information and HPI MD Statement: I have seen and personally examined NATHAN CARLIN and documented this H&P. The patient is a 82 year old M who presented with a patient stated chief complaint of [lower extremity swelling]. Source of Information: patient, old records Exam Limitations: no limitations History of Present Illness: 82-year-old male with past medical history of HFrEF (LVEF 25-30%), CAD s/p CABG/ Stentsx2, PAD s/p left BKA, atrial fibrillation on eliquis, GERD, hypertension, hyperlipidemia, ex-smoker, presented to [facility] for evaluation of lower extremity swelling. The patient noticed that his both his lower extremity are triple his usual size which all started a few days ago. Also he noted that he is having a hard time fitting his left BKA stump into the prosthesis. In addition the patient also was complaining of progressively worsening dry cough for a few weeks. Patient complains of orthopnea for which he had to sleep in a reclining chair, he also complains of nausea and epigastric discomfort. Of note the patient was recently discharged from [facility] on June 2017, he was discharged on Lasix 20 which he only took for 1 month and he is continued using Lasix on his own because of increasing urination. When the patient found that his back is increasing swelling he started taking Lasix again 1 week ago however it did not help. Patient denies any lightheadedness, vomiting, diarrhea, chest pain or palpitation. 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 Ambulation: cane Review of Systems Review of Systems Constitutional: Denies: no symptoms. Cardiovascular: Reports: edema, orthopena, peripheral edema. Denies: chest pain, palpitations, syncope. Respiratory: Reports: cough, orthopnea, short of breath. Denies: hemoptysis, sputum production, stridor, wheezing. GI: Reports: nausea. Denies: constipation, diarrhea, bowel incontinence, bloody stool, changes in stool, vomiting. Genitourinary: Denies: no symptoms. Musculoskeletal: Denies: no symptoms. Skin: Denies: no symptoms. Exam & Diagnostic Data Last 24 Hrs of Vital Signs/I&O Vital Signs Date Time Temp Pulse Resp B/P B/P Pulse O2 O2 Flow FiO2 Mean Ox Delivery Rate 08/18 1744 96.7 63 20 121/55 95 Room Air 08/18 1515 95 Room Air 08/18 1419 73 20 109/77 96 Room Air 08/18 1228 98.2 71 20 136/67 95 Room Air Intake & Output 08/18 1600 08/18 0800 08/18 0000 Intake Total Output Total Balance Patient 185 lb Weight Weight Reported by Patient Measurement Method Physical Exam General Appearance Alert, Oriented X3, Cooperative, No Acute Distress HEENT Atraumatic, PERRLA, EOMI, Mucous Membr. moist/pink Neck Supple, JVD 7 cm Cardiovascular Normal S1, Normal S2, ejection systolic murmur Lungs decrweased breath sounds on the left lower lung base Abdomen Normal Bowel Sounds, Soft, No Tenderness Extremities 2 + bilateral pitting edema, left BKA Last 24 Hrs of Labs/Sameer: Laboratory Tests 08/18/17 1420: Anion Gap 14, Estimated GFR 34 L, BUN/Creatinine Ratio 14.7, Glucose 123 H, Calcium 9.2, Total Bilirubin 0.7, AST 19, ALT 29, Alkaline Phosphatase 85, Troponin I 0.01, Jef-H-Xzlgwyqvqsq Pept 2980 H, Total Protein 6.8, Albumin 3.9, Globulin 2.9, Albumin/Globulin Ratio 1.3, CBC w Diff NO MAN DIFF REQ, RBC 4.78, MCV 85.4, MCH 28.4, MCHC 33.3, RDW 14.9 H, MPV 7.8, Gran % 78.9 H, Lymphocytes % 12.4 L, Monocytes % 5.7, Eosinophils % 2.4, Basophils % 0.6, Absolute Granulocytes 5.3, Absolute Lymphocytes 0.8 L, Absolute Monocytes 0.4, Absolute Eosinophils 0.2, Absolute Basophils 0 Microbiology 08/18 1645 BLOOD: Blood Culture - RECD 08/18 1630 BLOOD: Blood Culture - RECD Diagnostic Data EKG Results Atrial fibrillation, QTC 510, RI 328 Assessment/Plan Assessment: 82-year-old male with past medical history of HFrEF (LVEF 25-30%), CAD s/p CABG/ Stentsx2, PAD s/p left BKA, atrial fibrillation on eliquis, GERD, hypertension, hyperlipidemia, ex-smoker, presented to [facility] for evaluation of lower extremity swelling. The patient noticed that his both his lower extremity are triple his usual size which all started a few days ago. Also he noted that he is having a hard time fitting his left BKA stump into the prosthesis. In addition the patient also was complaining of progressively worsening dry cough for a few weeks. Most likely due to medication noncompliance. Vital signs on admission: Blood pressure 136/67, temperature 98.2, pulse 71, pulse ox 95 on room air Pertinent labs on admission: CBCT showed WBC 6.7, hemoglobin 13.6, platelet 256, sodium 142, potassium 4.4, BUN 28, creatinine 1.9, BNP 2980 Chest x-ray showed slight increase of left-sided chronic pleural effusion with left basilar infiltrate and persistent cardiomegaly Doppler lower extremity showed no DVT, peripheral arterial disease, segmental occlusion of the right superficial femoral artery Last echo on 06/18 showed: 1. Severely decreased EF of 25-30% with regional wall motion abnormalities as noted above. 2. Trace mitral regurgitation. 3. Trace tricuspid regurgitation. 4. Trace aortic regurgitation. 5. Trace pulmonic regurgitation. 6. Mild pulmonary hypertension. Problem list: CHF exacerbation A. fib on Eliquis CKD History of CAD S/P CABG and stent History of hypertension hyperlipidemia History of PAD status post left BKA Plan: Admit to telemetry Continuous telemetry monitoring Vitals every shift Strict I's and O's Daily weights Lasix 40 IV twice daily Continue home meds including Eliquis, lisinopril, amiodarone, aspirin, atorvastatin Cardiology recommendation appreciated Vascular surgery consult appreciated Follow-up on blood culture and sputum culture Full code DVT prophylaxis with Eliquis CHF diet As Ranked By This Provider Problem List: 1. Lower extremity edema Core Measures/Misc (11/17) Acute Coronary Syndrome ACS Diagnosis: No Congestive Heart Failure Congestive Heart Failure Diagnosis Yes Last Known EF % 25 Cerebrovascular Accident CVA/TIA Diagnosis: No VTE (View Protocol) VTE Risk Factors Age>40 No Mechanical VTE Prophylaxis d/t N/A MechProphylax Ordered No VTE Pharm Prophylaxis d/t NA PharmProphylax ordered Sepsis (View protocol) Sepsis Present: No If YES complete Sepsis Event Note If YES complete Sepsis Event Note Rafael Victoria MD 08/18/17 1711: General Information and HPI Allergies/Medications Home Med list Amiodarone (Cordarone) 200 MG TAB 1 TAB PO DAILY AFIB (Reported) Apixaban (Eliquis) 2.5 MG TABLET 2.5 MG PO BID Anticoagulation . Aspirin (Ecotrin*) 81 MG TABLET.DR 1 TAB PO QAM HEART/BLOOD (Reported) Atorvastatin Calcium (Lipitor) 20 MG TABLET 1 TAB PO DAILY HLD (Reported) Calcium Carbonate (TUMS) 200 MG CALCIUM (500 MG) TAB.CHEW 1 TAB PO DAILY PRN GI upset (Reported) Furosemide (Lasix) 20 MG TABLET 1 TAB PO DAILY CHF (Reported) Isosorbide Mononitrate (Isosorbide Mononitrate ER) 60 MG TAB.ER.24H 1 TAB PO QPM HEART (Reported) Lisinopril (Prinivil) 5 MG TABLET 1 TAB PO DAILY CHF (Reported) Core Measures/Misc (11/17) Sepsis (View protocol) If YES complete Sepsis Event Note If YES complete Sepsis Event Note Resident Review Statement Other Findings: History of Present Illness 82 year old man with past medical history HFrEF (LVEF 25-30%), CAD s/p CABG/ Stentsx2, PAD s/p left BKA, atrial fibrillation on eliquis, GERD, hypertension, hyperlipidemia, and former tobacoo use seen for evaluation of lower extremity swelling. Over the past "couple of days" he has been complaining of lower extremity swelling. He discontinued his lasix after being hospitalized in June due to frequent urination. He restarted the lasix last week without any improvement. For persistence of his symptoms he came to the [facility]. Additionally he reports having had a dry cough over the past few weeks. Patient reports that he has to sleep sitting up in a chair to breath comfortably. He is also complaing of a "hollow /empty" feeling in the middle of his stomach with an associated mild nausea. Review of Systems Otherwise he denies any fever, chills, lightheadedness, dizziness, chest pain, palpitations, vomiting, diarrhea, constipation, urinary complaints. Objective Vitals Temp 98.2, HR 71-73, SBP 109-136, O2 95-96% on room air Physical Exam -General: well developed, elderly man in no acute distress -HEENT: NCAT, PERRL, EOMI, anicteric sclera -Neck: Supple, JVP ~ 7, trachea midline, no accessory respiratory muscle use -Cardio: 2/6 systolic murmur; irregularly irregular -Pulm: Diminished bibasilar airflow with scant left mid chest crackles -Abdomen: Soft, nontender, nondistended, bowel sounds intact -Neuro: Awake and alert, cranial nerves II through XII grossly intact -Extremities: 2+ trace right lower extremity pitting edema, left BKA Labs / Imaging / Studies -CBC: WBC 6.7, Hgb 13.6, Hct 40.8, Plt 256 -BMP: Na 142, K 4.4, Cl 102, CO2 26, BUN 28, Creatinine 1.9, AG 14, Glucose 123 -LFT: normal limts -Misc: BNP 2980, Troponin I 0.01 -CXR: * Slight interval increase left-sided effusion with associated left basilar infiltrate or atelectasis. Trace right effusion. Persistent cardiomegaly. -EKG: Atrial fibrillation with atrial arrhythmia -Echo 06/05/17: 1. Severely decreased EF of 25-30% with regional wall motion abnormalities as noted above. 2. Trace mitral regurgitation. 3. Trace tricuspid regurgitation. 4. Trace aortic regurgitation. 5. Trace pulmonic regurgitation. 6. Mild pulmonary hypertension. Assessment 82 year old man with multiple medical problems significant for heart failure with reduced ejection fraction, coronary artery disease status post CABG and 2 coronary stents, hypertension, hyperlipidemia, PAD status post left BKA, and atrial fibrillation on Eliquis seen for evaluation of progressively worsening lower extremity swelling. Presently patient is only complaining of the lower extremity swelling that has been progressively worsening over the past week with shortness of breath while lying flat. Vital signs remain within normal limits. Physical exam is significant for elevated JVP with diminished bibasilar airflow and scant left- sided crackles with an irregularly irregular pulse and 2+ right lower extremity pitting edema. Labs including CBC, hepatic function panel, and serum chemistry are significant only for a creatinine of 1.9 that is mildly above baseline; significant labs include a troponin I of 0.01 and a BNP of 2980. Chest x-ray demonstrated a worsened left pleural effusion. EKG demonstrated atrial fibrillation with an atrial arrhythmia. Clinically patient appears to have a mild acute decompensated heart failure exacerbation. Patient is to be admitted to the telemetry for intravenous diuresis and evaluation by cardiology. Problem list -Acute decompensated systolic congestive heart failure -CAD status post CABG/PCI with stent 2 (2001) -Atrial fibrillation, on Eliquis -Hypertension -Hyperlipidemia -GERD -Chronic kidney disease -Former tobacco user Plan -Admit to telemetry -Telemetry monitoring -Strict ins and outs, daily weights -Hold antibiotics for now -Lasix 40 mg IV twice daily -Continue home meds: Amiodarone, Eliquis, aspirin, atorvastatin, Imdur, lisinopril -Hold oral Lasix while receiving intravenous, restart as tolerated -Cardiology consult for decompensated CHF -Vascular surgery consult for peripheral vascular disease in right lower extremity -Follow-up ED blood cultures -Pain control with acetaminophen -CHF diet -DVT prophylaxis with subcutaneous heparin -Full code Farida Monroyodette 08/18/17 2200: Core Measures/Misc (11/17) Sepsis (View protocol) If YES complete Sepsis Event Note If YES complete Sepsis Event Note Attending MD Review Statement Attending Statement Attending MD Statement: examined this patient, discuss w/resident/PA/TEXTILE DYER, agreed w/resident/PA/TEXTILE DYER, reviewed EMR data (avail) Attending Assessment/Plan: 82 yr old male with pmh of CAD s/p cabg and stents, pad s/p left BKA , CHF systolic with last ef of 25-30%, afib who presented with c/c of rt leg swelling and also left stumb being swollen. Pt was supposed to be on lasix which he stopped due to frequent urination and since his legs started swelling agian he started the lasix back 1 week ago but it was not helping much. Pt also complained of cough which initially was productive but the last few days has been dry cough. Pt is non compliant with CHF diet and eats out everyday and does not cook at home and does not restrict his salt intake. Acute on chronic systolic CHF- will start him on iv lasix. willl f/u on cardiology recommendations. Will see how he does. will f/u on telemetry and will put him on heart healthy diet. Pt was counselled about the improtance of low salt diet but he does not appear to understand. Will monitor strict I& O. I do not see any signs and symptoms of infection so will hold off on abx.
[2017-08-18] MEDS ORDERED: AMIODARONE HCL200 M1 PO (17:19)
[2017-08-18] MEDS ORDERED: LIPITOR20 M2 PO (17:20)
[2017-08-18] MEDS ORDERED: LASIX20 M1 PO (17:21)
[2017-08-18 19:44] VITALS: BP 124/78
--- NOTE | 2017-08-18 21:51 | Admission Certification ---
Admission Certification Certification Statement - As attending physician, I certify that at the time of - admission, based on clinical presentation, severity of - symptoms, need for further diagnostic testing and - therapeutic interventions, and risk of adverse outcomes - without in-hospital treatment, in my clinical assessment, - this patient requires an acute hospital stay for a minimum - of two nights or longer. I have also considered psychsocial - factors such as support system, advanced age, financial - issues, cognitive issues, and failed out-patient treatments, - past re-admission history, safety of patient, and lack of - compliance as applicable. Specific rationale supporting this admission is: acute chf exacerbation.
[2017-08-18 22:30] VITALS: BP 120/84
[2017-08-19 07:08] VITALS: BP 130/70
--- NOTE | 2017-08-19 07:17 | PN- Housestaff ---
Jordy SETH,Maria G 08/19/17 0717: Subjective Follow-up For: -Acute decompensated systolic congestive heart failure -CAD status post CABG/PCI with stent 2 (2001) -Atrial fibrillation, on Eliquis Tele-Events Since Last Visit: No overnight events, pt was running multiple beats of bigiminy and trigeminy Subjective: Patient was seen and examined, no overnight events, stable vital signs, diuresing well on diuretics only complaining of frequency and inability to sleep because of polyuria Review of Systems Constitutional: Reports: see HPI. Objective Last 24 Hrs of Vital Signs/I&O Vital Signs Date Time Temp Pulse Resp B/P B/P Pulse O2 O2 Flow FiO2 Mean Ox Delivery Rate 08/19 0837 132/68 08/19 0837 65 132/68 08/19 0800 Room Air Room Air 08/19 0708 97.7 65 16 130/70 94 Room Air 08/18 2230 97.4 65 16 120/84 93 08/18 2134 74 110/60 08/18 1955 Room Air 08/18 1944 97.3 75 19 124/78 94 08/18 1744 96.7 63 20 121/55 95 Room Air 08/18 1515 95 Room Air 08/18 1419 73 20 109/77 96 Room Air Intake & Output 08/19 1600 08/19 0800 08/19 0000 Intake Total 200 240 Output Total 300 1050 500 Balance -300 -850 -260 Intake, Oral 200 240 Output, Urine 300 1050 500 Patient 177 lb Weight Physical Exam General Appearance: Alert, Oriented X3 HEENT: Atraumatic, PERRLA, EOMI, Mucous Membr. moist/pink Neck: Supple, JVD Cardiovascular: Normal S1, Normal S2 Lungs: Clear to Auscultation Abdomen: Normal Bowel Sounds, Soft Neurological: Normal Speech, Strength at 5/5 X4 Ext, Normal Tone, Sensation Intact, Cranial Nerves 3-12 NL Extremities: No Clubbing, No Cyanosis, 2 + pitting edema Assessment/Plan Assessment: 82 year old man with multiple medical problems significant for heart failure with reduced ejection fraction, coronary artery disease status post CABG and 2 coronary stents, hypertension, hyperlipidemia, PAD status post left BKA, and atrial fibrillation on Eliquis seen for evaluation of progressively worsening lower extremity swelling. Problem list -Acute decompensated systolic congestive heart failure -CAD status post CABG/PCI with stent 2 (2001) -Atrial fibrillation, on Eliquis -Hypertension -Hyperlipidemia -GERD -Chronic kidney disease -Former tobacco user Plan -Continue to monitor on telemetry -Telemetry monitoring -Strict ins and outs, daily weights -Hold antibiotics for now -Continue Lasix 40 mg IV twice daily -Continue home meds: Amiodarone, Eliquis, aspirin, atorvastatin, Imdur, lisinopril -Hold oral Lasix while receiving intravenous, restart as tolerated -Cardiology recommendation appreciated for decompensated CHF -Vascular surgery consult for peripheral vascular disease in right lower extremity -Follow-up ED blood cultures -Pain control with acetaminophen -CHF diet -DVT prophylaxis with subcutaneous heparin -Full code Problem List: 1. Lower extremity edema 2. CHF exacerbation Pain Ratin Pain Location: N/A Pain Goal: Remain pain free Pain Plan: [facility] [employer] Labs & Rationales: CBC bep AndrewSelvin vargas 08/19/17 1107: Attending MD Review Statement Attending Statement Attending MD Statement: examined this patient, discuss w/resident/PA/MOTION PICTURE SET UP WORKER, agreed w/resident/PA/MOTION PICTURE SET UP WORKER, discussed with family, reviewed EMR data (avail), discussed with nursing, discussed with case mgmt, reviewed images, amended to note Attending Assessment/Plan: Acute on chronic systolic CHF exacerbation- Continue bid iv lasix. Monitor input /output. Pt was counselled about the improtance of low salt diet. Continue with negative balance. His creatinine sligtly nicreased today. Continue watch on his creatinine, electrolytes. willl f/u on cardiology recommendations. gi/dvt prophyalxis full code
[2017-08-19 07:53] LABS: ABSOLUTE BASOPHIL COUNT 0 /CUMM (0.0-0.2); ABSOLUTE EOSINOPHIL COUNT 0.2 /CUMM (0.0-0.7); ABSOLUTE GRANULOCYTE CT 4.5 /CUMM (1.4-6.5); ABSOLUTE LYMPH COUNT 0.8 /CUMM (1.2-3.4); ABSOLUTE MONOCYTE COUNT 0.4 /CUMM (0.10-0.60); BASOPHIL % 0.6 % (0.0-2.0); EOSINOPHIL % 3.6 % (0-5); GRANULOCYTE % 75.1 % (42.2-75.2); HEMATOCRIT 41.2 % (42-52); MEAN CORPUSCULAR HGB CONC 32.9 G/DL (33.0-37.0); MEAN PLATELET VOLUME 8.1 FL (7.4-10.4); PLATELET COUNT 230 /CUMM (130-400); RBC DISTRIBUTION WIDTH 15.2 % (11.5-14.5); RED BLOOD CELL CT 4.85 /CUMM (4.70-6.10); WHITE BLOOD CELL COUNT 6.1 /CUMM (4.8-10.8)
--- NOTE | 2017-08-19 13:59 | Cons- Vascular Surgery ---
General Information and HPI Consulting Request Date of Consult: 08/19/17 Requested By: Selvin Morales MD History of Present Illness: 82-year-old gentleman with multiple medical issues who presented to the hospital with lower extremity swelling. He has a history of peripheral arterial disease and is status post left lower extremity bypass and subsequent left BKA. He has a congestive heart failure and is being treated with diuresis. He has an extensive cardiac history. Venous duplex of the lower extremity to rule out DVT showed no evidence of DVT. There was however an incidental finding of the left SFA segmental occlusion. He denies Claudication. There are no ulcers. Allergies/Medications Allergies: Coded Allergies: No Known Allergies (06/05/17) Home Med List: Amiodarone (Cordarone) 200 MG TAB 1 TAB PO DAILY AFIB (Reported) Apixaban (Eliquis) 2.5 MG TABLET 2.5 MG PO BID Anticoagulation . Aspirin (Ecotrin*) 81 MG TABLET.DR 1 TAB PO QAM HEART/BLOOD (Reported) Atorvastatin Calcium (Lipitor) 20 MG TABLET 1 TAB PO DAILY HLD (Reported) Calcium Carbonate (TUMS) 200 MG CALCIUM (500 MG) TAB.CHEW 1 TAB PO DAILY PRN GI upset (Reported) Furosemide (Lasix) 20 MG TABLET 1 TAB PO DAILY CHF (Reported) Isosorbide Mononitrate (Isosorbide Mononitrate ER) 60 MG TAB.ER.24H 1 TAB PO QPM HEART (Reported) Lisinopril (Prinivil) 5 MG TABLET 1 TAB PO DAILY CHF (Reported) Past History Medical History Blood Transfusion Hx: No Neurological: dizziness EENT: NONE Cardiovascular: AFIB, hypertension, hyperlipidemia, myocardial infarction, CABG in 1996 with stent in 2001 Respiratory: NONE Gastrointestinal: ACID REFLUX Hepatic: NONE Renal: NONE Musculoskeletal: NONE Psychiatric: NONE Endocrine: NONE Blood Disorders: NONE Cancer(s): NONE 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 Home Smoking Status: Former Smoker ETOH Use: denies use Illicit Drug Use: denies illicit drug use Functional Ability ADLs Independent: dressing, eating, toileting, bathing. Ambulation: cane Review of Systems Review of Systems: Patient denies headache, dizziness, cough, palpitation, diarrhea or constipation Exam & Diagnostic Data Vital Signs and I&O Vital Signs Date Time Temp Pulse Resp B/P B/P Pulse O2 O2 Flow FiO2 Mean Ox Delivery Rate 08/19 0837 132/68 08/19 0837 65 132/68 08/19 0800 Room Air Room Air 08/19 0708 97.7 65 16 130/70 94 Room Air 08/18 2230 97.4 65 16 120/84 93 08/18 2134 74 110/60 08/18 1955 Room Air 08/18 1944 97.3 75 19 124/78 94 08/18 1744 96.7 63 20 121/55 95 Room Air 08/18 1515 95 Room Air 08/18 1419 73 20 109/77 96 Room Air Intake & Output 08/19 1600 08/19 0800 08/19 0000 08/18 1600 08/18 0800 08/18 0000 Intake Total 200 240 Output Total 300 1050 500 Balance -300 -850 -260 Intake, Oral 200 240 Output, Urine 300 1050 500 Patient 177 lb 185 lb Weight Weight Reported by Patient Measurement Method Physical Exam: Patient is alert and oriented 3 Lungs: Decreased breath sounds bilaterally Cardiovascular: S1 plus S2 Abdomen: Soft, nontender nondistended Extremities: Left lower symmetry is in a below-knee prostheses. There is moderate swelling of the right leg. There are no ulcers or drainage. Right foot is warm to touch. Motor and sensory are intact. Assessment/Plan Assessment/Plan 82-year-old man with multiple medical issues and CHF who is being treated with diuresis. The lower extent is swelling is most likely secondary to CHF. There is no evidence of DVT baseline venous ultrasound. 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 No vascular surgery intervention necessary at this time. Recommend medical management and leg elevation when possible. I will follow him as outpatient. Thank you for asking me to be involved in the care of this patient. Consult Acknowledgment - Thank you for your consult request. Attending MD Review Statement Attending Statement Attending MD Statement: examined this patient, discuss w/resident/PA/CYTOTECHNOLOGIST/CYTOLOGY SUPERVISOR
[2017-08-19 14:53] VITALS: BP 124/52
--- NOTE | 2017-08-19 18:07 | PN- Cardiology ---
Subjective Subjective: * Patient denies any chest discomfort or shortness of breath. His leg swelling is improved but has not resolved. * Increasing creatinine to 2.1 Objective Vital Signs and I&Os Vital Signs Date Time Temp Pulse Resp B/P B/P Pulse O2 O2 Flow FiO2 Mean Ox Delivery Rate 08/19 1453 98.8 78 20 124/52 98 Room Air 08/19 0837 132/68 08/19 0837 65 132/68 08/19 0800 Room Air Room Air 08/19 0708 97.7 65 16 130/70 94 Room Air 08/18 2230 97.4 65 16 120/84 93 08/18 2134 74 110/60 08/18 1955 Room Air 08/18 1944 97.3 75 19 124/78 94 Intake & Output 08/19 1600 08/19 0800 08/19 0000 08/18 1600 08/18 0800 08/18 0000 Intake Total 500 200 240 Output Total 750 1050 500 Balance -250 -850 -260 Intake, Oral 500 200 240 Output, Urine 750 1050 500 Patient 177 lb 185 lb Weight Weight Reported by Patient Measurement Method Physical Exam: General: WD/obese male in NAD; alert and oriented x 3 HEENT: NC/AT, PERRL, EOMI Neck: no JVD, no carotid bruit Heart: RRR with 2/6 systolic murmur Lungs: clear bilaterally Extremities: 2+ edema, left BKA Assessment/Plan Assessment/Plan * This patient has a low EF. His cardiac cath from 2004 shows a total chronic occlusion of the mid LAD and proximal RCA with a 60% ostial stenosis of the LCX. SVG's to the D1 and RCA are both totally occluded. A radial artery graft to the OM1 was patent. The BOO to the LAD dis patnet with severe disease distally in the LAD. His EF in 2004 was 25%. Medical management was pursued. * This patient has paroxysmal atrial fibrillation with increased heart rate. I suspect he has frequent paroxysms of this dysrhythmia which ultimately results in lightheadedness and at times chest pain. He is now on Amiodarone and is in a sinus rhythm on this medication. I think it is prudent to try and maintain a sinus rhythm in this patient who does not tolerate tachycardia well and is reluctant to be on chronic anticoagulation. In addition, he does have a low EF and renal dysfunction. Continue Amiodarone 200mg daily and Eliquis 2.5mg BID. * This patient has evidence of myocardial ischemia. I am suspicious that his previously described dental pain may be cardiac pain radiating toward his jaw. I would be inclined to pursue a cardiac catheterization but the patient is not in agreement with this at this time. For now continue his Isosorbide, aspirin at 81mg daily, ACEI and statin. * This patient has decompensated CHF likely due to his ischemic heart disease and low EF. Continue to diurese with Lasix 40mg IV BID with continued monitoring of his BUN, creatinine and potassium. He should be diuresed with Lasix at 40mg IV BID with careful monitoring of his BuN, creatinine and potassium. I am less suspicious of an infectious infiltrate. * Obtain an echocardiogram. Continue telemetry? Yes
[2017-08-19 21:18] VITALS: BP 124/50
[2017-08-20] VITALS (7 sets, daily range): BP systolic 90–130; BP diastolic 42–70
--- NOTE | 2017-08-20 07:27 | PN- Housestaff ---
Jordy SETH,Maria G 08/20/17 0727: Subjective Follow-up For: -Acute decompensated systolic congestive heart failure -CAD status post CABG/PCI with stent 2 (2001) -Atrial fibrillation, on Eliquis Tele-Events Since Last Visit: Normal sinus rhythm, 6071, AV block, PVCs Subjective: Patient was seen and examined, still complaining of a dry cough, diuresing well on Lasix, no overnight events Review of Systems Constitutional: Reports: see HPI. Objective Last 24 Hrs of Vital Signs/I&O Vital Signs Date Time Temp Pulse Resp B/P B/P Pulse O2 O2 Flow FiO2 Mean Ox Delivery Rate 08/20 0800 98 Room Air 08/20 0644 98.2 44 18 130/70 95 08/20 0000 Room Air 08/19 2118 97.6 52 18 124/50 96 Room Air 08/19 2110 56 114/50 08/19 1600 Room Air 08/19 1453 98.8 78 20 124/52 98 Room Air Intake & Output 08/20 1600 08/20 0800 08/20 0000 Intake Total 200 395 Output Total 150 975 Balance 50 -580 Intake, IV 20 Intake, Oral 200 375 Number 0 Bowel Movements Output, Urine 150 975 Physical Exam General Appearance: Alert, Oriented X3, Cooperative, No Acute Distress HEENT: Atraumatic, PERRLA, EOMI, Mucous Membr. moist/pink Neck: Supple, No JVD Cardiovascular: Normal S1, Normal S2 Lungs: Clear to Auscultation Abdomen: Normal Bowel Sounds, Soft, No Tenderness Extremities: 2 + pittng edema in the RLE, Left BKA Assessment/Plan Assessment: 82 year old man with multiple medical problems significant for heart failure with reduced ejection fraction, coronary artery disease status post CABG and 2 coronary stents, hypertension, hyperlipidemia, PAD status post left BKA, and atrial fibrillation on Eliquis seen for evaluation of progressively worsening lower extremity swelling. Problem list -Acute decompensated systolic congestive heart failure -CAD status post CABG/PCI with stent 2 (2001) -Atrial fibrillation, on Eliquis -Hypertension -Hyperlipidemia -GERD -Chronic kidney disease stage III -Former tobacco user Plan -Continue to monitor on telemetry -Telemetry monitoring -Strict ins and outs, daily weights -Hold antibiotics for now -Decrease Lasix to 40 mg daily due to worsening kidney function -DC lisinopril because of dry cough which might be side effect of BECKY inhibitor Start losartan 25 mg daily -Continue home meds: Amiodarone, Eliquis, aspirin, atorvastatin, Imdur, lisinopril -Hold oral Lasix while receiving intravenous, restart as tolerated -Cardiology recommendation appreciated for decompensated CHF -Vascular surgery consult recommended outpatient follow-up and no intervention for now -Pain control with acetaminophen -CHF diet -DVT prophylaxis with subcutaneous heparin -Full code Problem List: 1. CHF exacerbation Pain Ratin Pain Location: n/a Pain Goal: Remain pain free Pain Plan: [facility] [employer] Labs & Rationales: BESelvin Burgess 08/20/17 1110: Attending MD Review Statement Attending Statement Attending MD Statement: examined this patient, discuss w/resident/PA/SOCIAL MEDIA INTERN, agreed w/resident/PA/SOCIAL MEDIA INTERN, discussed with family, reviewed EMR data (avail), discussed with nursing, discussed with case mgmt, reviewed images, amended to note Attending Assessment/Plan: Acute on chronic systolic CHF exacerbation with mild renal insufficiecny- Decrease iv lasix daily. Monitor input/output. Negative balance around 2-3l. Pt was counselled about the improtance of low salt diet. Continue watch on his creatinine, electrolytes. willl f/u on cardiology recommendations. gi/dvt prophyalxis full code.
[2017-08-20] MEDS ORDERED: LOSARTAN POTASS25 M1 PO (15:28)
--- NOTE | 2017-08-20 15:29 | Patient Discharge Instructions ---
Discharge Instructions General Discharge Information You were seen/treated for: CHF exacerbation Special Instructions: 1please follow-up with your PCP in 1 week of discharge 2please follow-up with your rn pool in 1 week of discharge 3please take medications as advised Diet Continue normal diet: No Recommended Diet: CHF DIET Acute Coronary Syndrome Inclusion Criteria At DC or during hospital stay patient has or had the following: ACS DIAGNOSIS No Discharge Core Measures Meds if any: Prescribed or Continued at Discharge Meds if any: NOT Prescribed or Continued at Discharge Congestive Heart Failure Inclusion Criteria At DC or during hospital stay patient has or had the following: CHF DIAGNOSIS Yes Discharge Core Measures Meds if any: Prescribed or Continued at Discharge BECKY/ARB for EF <40% Yes Meds if any: NOT Prescribed or Continued at Discharge Cerebrovascular accident Inclusion Criteria At DC or during hospital stay patient has or had the following: CVA/TIA Diagnosis No Discharge Core Measures Meds if any: Prescribed or Continued at Discharge Meds if any: NOT Prescribed or Continued at Discharge Venous thromboembolism Inclusion Criteria VTE Diagnosis No VTE Type NONE VTE Confirmed by (Test) NONE Discharge Core Measures - Per Current guidelines, there needs to be overlap - treatment for the first 5 days of Warfarin therapy. - If discharged on Warfarin prior to 5 days of - overlap therapy, the patient will need to be - assessed for post discharge needs including - *Post discharge parental anticoagulation - *Warfarin and/or parental anticoagulation education - *Follow up date to check INR post discharge At least 5 days overlap therapy as Inpatient No Meds if any: Prescribed or Continued at Discharge Note: Overlap Therapy is Warfarin and Anticoagulant Meds if any: NOT Prescribed or Continued at Discharge
--- NOTE | 2017-08-20 16:31 | PN- Student ---
Subjective Subjective: HPI: Patient is an 82 year old male with a past medical history of A fib, CHF, cardiac stenting, L BKA, who presented to the ED with several days of lower extremity edema and persistent cough. The patient was prescribed Lasix during his last visit to [place] in July. He took it for one month but did not refill it because he said he had to go to the bathroom so much he couldn't leave the house. He said he was off it for about a week and then restarted it when he noticed the swelling but said it didn't help. He said nothing seemed to make it better or worse. The cough began over a month ago and was productive of copious amounts of sputum, but has been a dry cough for the last few weeks. He said he has to sleep sitting up in a chair and cannot lay flat. He reported that his stomach felt "hollow and empty." He denied palpitations, lightheadedness, dizziness, chest pain, leg pain, and fever. He reports that he eats at restaurants nearly every day and consumes a lot of canned food. His CXR showed a left-sided effusion and L basilar infiltrate, a trace right effusion and persistent cardiomegaly. He was given one dose of IV antibiotics in the ED for possible pneumonia which was discontinued upon admission. Since admission, the cough has not improved with 40mg Lasix BID or with 2 doses of Tessalon Pearles. The edema has improved in his left leg and he is now able to fit comfortably in his prosthesis, and his right leg improved overnight with elevation. He had 2+ pitting edema this morning after he began moving about. He was open to the idea of cardiac catheterization which he spoke to Dr. Lantigua about, but is concerned that he will be able to lay flat and still during the procedure due to his cough. He is also concerned because during his last catheterization all they found was scar tissue which they could do nothing about. Dr. Lantigua is aware of his concerns. Past Medical/Surgical: 2018: Put on amiodarone, eloquis, and lasix by Dr. Lantigua 2006: L BKA 2005: Cardiac catheterization showing occlusion caused by scar tissue 2002: Coronary stenting 1997: Triple bypass at [facility] using vessels from patient's L arm, LLL bypass using "rubber tubes" Home medications: amiodarone 200mg PO daily atorvastatin 20mg PO daily aspirin 81 mg PO daily lisinopril 5mg PO daily isosorbide mononitrate 60mg PO daily eloquis 2.5mg PO BID Family History: Mom - at 62 from [place] Brother- at 90 Sister- at 87 Son - 55 Daughter - 60 Social History: The patient lives at home with his . He ambulates using a cane or a walker, and sees Dr. Jl Anders from the [facility] in [place]. He has a ~100 pack year history but quit smoking 20 years ago when he was hospitalized for his bypass. He denies alcohol and recreational drug use. Objective Objective: Vital Signs Date Time Temp Pulse Resp B/P B/P Pulse O2 O2 Flow FiO2 Mean Ox Delivery Rate 08/20 1459 97.6 95 18 122/62 96 Room Air 08/20 1356 80 08/20 0800 98 Room Air 08/20 0644 98.2 44 18 130/70 95 06 0000 Room Air 08/19 2118 97.6 52 18 124/50 96 Room Air 08/19 2110 56 114/50 Physical Exam: General: AOx3, in no apparent distress, conversation appropriate Skin: pink, no rashes or ulcers noted HEENT: normocephalic, atraumatic, gross hearing intact Heart: Normal s1 and s2, no MRG appreciated Lungs: no use of accessory msucles, lungs clear to auscultation bilaterally Abdomen: normoactive bowel sounsd, soft, non-tender MSK: L BKA with well-healed scar, RLL 2+ pitting edema with some skin discoloration Intake & Output 08/20 1600 08/20 0800 08/20 0000 Intake Total 320 200 395 Output Total 800 150 975 Balance -480 50 -580 Intake, IV 20 20 Intake, Oral 300 200 375 Number 0 Bowel Movements Output, Urine 800 150 975 Laboratory Tests 08/20 0633 Chemistry Sodium (137 - 145 mmol/L) 140 Potassium (3.5 - 5.1 mmol/L) 4.0 Chloride (98 - 107 mmol/L) 97 L Carbon Dioxide (22 - 30 mmol/L) 30 Anion Gap (5 - 16) 13 BUN (9 - 20 mg/dL) 36 H Creatinine (0.7 - 1.2 mg/dL) 2.2 H Estimated GFR (>60 ml/min) 29 L BUN/Creatinine Ratio (7 - 25 %) 16.4 Results Results: Laboratory Tests 08/20/17 0633: Anion Gap 13, Estimated GFR 29 L, BUN/Creatinine Ratio 16.4 08/19/17 0645: Anion Gap 16, Estimated GFR 30 L, BUN/Creatinine Ratio 13.8, CBC w Diff NO MAN DIFF REQ, RBC 4.85, MCV 85.0, MCH 28.0, MCHC 32.9 L, RDW 15.2 H, MPV 8.1, Gran % 75.1, Lymphocytes % 13.6 L, Monocytes % 7.1, Eosinophils % 3.6, Basophils % 0.6, Absolute Granulocytes 4.5, Absolute Lymphocytes 0.8 L, Absolute Monocytes 0.4, Absolute Eosinophils 0.2, Absolute Basophils 0 08/19/17 0310: Phosphorus 4.5, Magnesium 1.9, Troponin I 0.02 08/18/17 2055: Troponin I 0.02 08/18/17 1420: Anion Gap 14, Estimated GFR 34 L, BUN/Creatinine Ratio 14.7, Glucose 123 H, Calcium 9.2, Total Bilirubin 0.7, AST 19, ALT 29, Alkaline Phosphatase 85, Troponin I 0.01, Tvv-C-[id number] Pept 2980 H, Total Protein 6.8, Albumin 3.9, Globulin 2.9, Albumin/Globulin Ratio 1.3, CBC w Diff NO MAN DIFF REQ, RBC 4.78, MCV 85.4, MCH 28.4, MCHC 33.3, RDW 14.9 H, MPV 7.8, Gran % 78.9 H, Lymphocytes % 12.4 L, Monocytes % 5.7, Eosinophils % 2.4, Basophils % 0.6, Absolute Granulocytes 5.3, Absolute Lymphocytes 0.8 L, Absolute Monocytes 0.4, Absolute Eosinophils 0.2, Absolute Basophils 0 Microbiology 08/18 1645 BLOOD: Blood Culture - RES 08/18 1630 BLOOD: Blood Culture - RES Assessment/Plan Assessment: Patient is an 82 year old male with a past medical history of A fib, CHF, cardiac stenting, L BKA, who presented to the ED with several days of lower extremity edema and persistent cough being treated for acute on chronic systolic heart failure, with a BNP of 2980, Cr 1.9, BUN 28 on admission. His echo from June 2017 showed an EF of 25-30%. He was being treated with 40mg IV lasix BID which has been reduced to 40mg daily which has improved his LE edema. His main concern now is the persistent cough. He remains afebrile with a normal WBC suggesting it is not an infectious cause and could be due to CHF exacerbation or from BECKY-I. His Cr continues to rise and is now 2.2, and BUN is 36. Plan: CHF: Cardiac consult: continue home medications repeat echo cardiac catheterization as outpatient continue to monitor kidney function Counseling on heart healthy diet Cough: Erin Peters Consult cardiology about switching from ACEI to ARB Decreasing kidney function: Reduced lasix from BID to daily Continue to monitor BUN, Cr, Na+ and K+ Atrial fibrillation: Continue 200mg amiodarone Continue 2.5mg eloquis BID Hyperlipidemia: Continue on atorvastatin 20mg
--- NOTE | 2017-08-20 17:41 | ECHOCARDIOGRAM REPORT ---
NATHAN CARLIN Age: 82 : 1935 Gender: M Exam Date: 08/19/2017 19:54 Exam Location: [address] Ht (in): 69 Wt (lb): 177 BSA: 1.99 BP: 132 / 68 Ordering Physician: Maria G Spence MD Referring Physician: Norman Lantigua MD, PhD Technologist: Jory Boyd [facility] Room Number: [id number] Indications: HEART FAILURE Rhythm: Sinus Technical Quality: adequate FINDINGS Left Ventricle Normal left ventricular size and wall thickness. Severely decreased systolic function with inferior wall akinesis superimposed on global hypokinesis.Normal left ventricular diastolic filling pattern for age. The ejection fraction is visually estimated at 20%. Right Ventricle The right ventricle is normal in size and function. Right Atrium The right atrium is normal in size. Left Atrium The left atrium is moderately enlarged. The interatrial septum is intact. Mitral Valve The mitral valve demonstrates mild annular calcification.. There is moderate mitral regurgitation. Aortic Valve Structurally normal aortic valve without significant sclerosis or stenosis. There is mild aortic regurgitation. Tricuspid Valve The tricuspid valve is normal in structure and function. There is mild tricuspid regurgitation. Pulmonary artery systolic pressure is normal. Pulmonic Valve Structurally normal pulmonic valve. There is mild pulmonic regurgitation. Pericardium Normal pericardium with trace effusion. Pleural effusion is noted. Great Vessels Normal aortic root dimension. The aortic arch and great vessels are well seen and are normal. CONCLUSIONS 1. Severely decreased EF of 20% with inferior akinesis. 2. Moderate left atrial enlargement. 3. Moderate mitral regurgitation. 4. Mild tricuspid regurgitation. 5. Mild aortic insufficiency. 6. Mild pulmonic insufficiency. 7. Trace pericardial effusion. 8. Pleural effusion is noted. Norman Lantigua M.D. (Electronically Signed) Final Date: 20 August 2017 17:41 MEASUREMENTS (Male / Female) Normal Values 2D ECHO LV Diastolic Diameter PLAX 5.5 cm 4.2 - 5.9 / 3.9 - 5.3 cm LV Systolic Diameter PLAX 4.6 cm 2.1 - 4.0 cm LV Fractional Shortening PLAX 16.4 % 25 - 46 % LV Ejection Fraction 2D Teich 34.0 % IVS Diastolic Thickness 1.2 cm LVPW Diastolic Thickness 1.2 cm LV Relative Wall Thickness 0.4 RV Internal Dim ED PLAX 3.6 cm 1.9 - 3.8 cm LVOT Diameter 2.0 cm Aortic Root Diameter 2.5 cm LA Systolic Diameter LX 4.5 cm 3.0 - 4.0 / 2.7 - 3.8 cm LA Volume 72.0 cm 18 - 58 / 22 - 52 cm Ascending Aorta Diameter 2.5 cm DOPPLER AV Peak Velocity 130.0 cm/s AV Peak Gradient 6.8 mmHg AV Mean Velocity 81.8 cm/s AV Mean Gradient 3.0 mmHg AV Velocity Time Integral 27.4 cm LVOT Peak Velocity 79.8 cm/s LVOT Peak Gradient 2.5 mmHg LVOT Mean Velocity 49.6 cm/s LVOT Mean Gradient 1.0 mmHg LVOT Velocity Time Integral 15.9 cm LVOT Stroke Volume 50.0 cm AV Area Cont Eq vti 1.8 cm AV Area Cont Eq pk 1.9 cm MV Peak Velocity 119.0 cm/s MV Peak Gradient 5.7 mmHg MV Mean Velocity 72.9 cm/s MV Mean Gradient 3.0 mmHg Mitral E Point Velocity 96.1 cm/s Mitral A Point Velocity 83.1 cm/s Mitral E to A Ratio 1.2 MV PHT Velocity 123.0 cm/s MV Deceleration Worth 1042.0 cm/s MV Pressure Half Time 35.4 ms MV Area PHT 6.2 cm MV Deceleration Time 140.0 ms PV Peak Velocity 80.0 cm/s PV Peak Gradient 2.6 mmHg PV Mean Velocity 55.1 cm/s PV Mean Gradient 1.0 mmHg PV Velocity Time Integral 16.4 cm LV E' Lateral Velocity 3.6 cm/s Mitral E to LV E' Lateral Ratio 26.6 LV E' Septal Velocity 4.2 cm/s Mitral E to LV E' Septal Ratio 22.9
--- NOTE | 2017-08-20 20:48 | PN- Cardiology ---
Subjective Subjective: * Breathing is comfortable. Leg swelling was better in the morning after arising from bed but gradually reaccumulated. * creatinine 2.2 Objective Vital Signs and I&Os Vital Signs Date Time Temp Pulse Resp B/P B/P Pulse O2 O2 Flow FiO2 Mean Ox Delivery Rate 08/20 2016 60 102/52 08/20 1459 97.6 95 18 122/62 96 Room Air 08/20 1356 80 08/20 0800 98 Room Air 08/20 0644 98.2 44 18 130/70 95 08/20 0000 Room Air 08/19 2118 97.6 52 18 124/50 96 Room Air 08/19 2110 56 114/50 Intake & Output 08/20 1600 08/20 0800 08/20 0000 08/19 1600 08/19 0800 08/19 0000 Intake Total 320 200 395 500 200 240 Output Total 800 150 870 395 4271 500 Balance -480 50 -580 -250 -850 -260 Intake, IV 20 20 Intake, Oral 300 200 375 500 200 240 Number 0 Bowel Movements Output, Urine 800 150 147 882 0399 500 Patient 177 lb Weight Physical Exam: General: WD/obese male in NAD; alert and oriented x 3 HEENT: NC/AT, PERRL, EOMI Neck: no JVD, no carotid bruit Heart: RRR with 2/6 systolic murmur Lungs: clear bilaterally Extremities: 2+ edema on right, left BKA Assessment/Plan Assessment/Plan * This patient has a low EF. His cardiac cath from 2004 shows a total chronic occlusion of the mid LAD and proximal RCA with a 60% ostial stenosis of the LCX. SVG's to the D1 and RCA are both totally occluded. A radial artery graft to the OM1 was patent. The BOO to the LAD is patent with severe disease distally in the LAD. His EF in 2004 was 25%. Medical management was pursued. * This patient has paroxysmal atrial fibrillation with increased heart rate. I suspect he has frequent paroxysms of this dysrhythmia which ultimately results in lightheadedness and at times chest pain. He is now on Amiodarone and is in a sinus rhythm on this medication. I think it is prudent to try and maintain a sinus rhythm in this patient who does not tolerate tachycardia well and is reluctant to be on chronic anticoagulation. In addition, he does have a low EF and renal dysfunction. Continue Amiodarone 200mg daily and Eliquis 2.5mg BID. * This patient has evidence of myocardial ischemia. I am suspicious that his previously described dental pain may be cardiac pain radiating toward his jaw. I would be inclined to pursue a cardiac catheterization when his creatinine is back to baseline if the patient is amenable to it. For now continue his Isosorbide, aspirin at 81mg daily, ACEI and statin. * This patient has decompensated CHF likely due to his ischemic heart disease and low EF. Begin a dobutamine drip at 5mcg/kg/min. Continue to diurese with Lasix 40mg IV BID with continued monitoring of his BUN, creatinine and potassium. * In consideration of the patient's cough stop his ACEI and begin an ARB. Continue telemetry? Yes
--- NOTE | 2017-08-21 00:13 | Event Note ---
Event Note Event Note: Dr. Lantigua recommended the dobutamine drip for the patient. I spoke to him about the dobutmine drip and he agreed to start it but later on when we started it he refused it. He wanted to go to bath room to urinate even though his bladder was empty as we did the bed side bladder scan. We asked him to use urinal on bed side but he refused. He didn't want dobutamine drip as he was complaining of headache after the dobutamine drip. We try to convince him to he refused the drip.
[2017-08-21 06:55] VITALS: BP 114/62
--- NOTE | 2017-08-21 07:07 | PN- Housestaff ---
Jordy SETH,Maria G 08/21/17 0706: Subjective Follow-up For: -Acute decompensated systolic congestive heart failure -CAD status post CABG/PCI with stent 2 (2001) -Atrial fibrillation, on Eliquis Tele-Events Since Last Visit: A. fib, 148, 0.14 Subjective: The patient was seen and examined, she was started on IV dobutamine drip as per cardiology recommendation last night, he started feeling urgency to urinate and nausea vomiting and headache and he askedd for the trip to be stopped, he went into rapid A. fib 1 hour after starting the drip with heart rate 148 Review of Systems Constitutional: Reports: see HPI. Objective Last 24 Hrs of Vital Signs/I&O Vital Signs Date Time Temp Pulse Resp B/P B/P Pulse O2 O2 Flow FiO2 Mean Ox Delivery Rate 08/21 0903 69 114/68 08/21 0903 69 114/68 08/21 0655 97.6 66 20 114/62 96 Room Air 08/20 2355 97.4 106 20 106/42 94 Room Air 08/20 2340 97.5 110 20 112/48 94 Room Air 08/20 2325 97.5 90 20 122/50 93 Room Air 08/20 2310 97.8 80 18 90/58 96 Room Air 08/20 2303 78 90/58 08/20 2200 98.7 60 22 102/52 94 Room Air 08/20 2102 94 Room Air 08/20 2017 60 102/52 08/20 1459 97.6 95 18 122/62 96 Room Air 08/20 1356 80 Intake & Output 08/21 1600 08/21 0800 08/21 0000 Intake Total 142.1 240 Output Total 350 400 Balance -207.9 -160 Intake, IV 22.1 Intake, Oral 120 240 Number 0 0 Bowel Movements Output, Urine 350 400 Patient 162 lb Weight Weight Bed scale Measurement Method Physical Exam General Appearance: Alert, Oriented X3, Cooperative, No Acute Distress Cardiovascular: Normal S1, Normal S2 Lungs: Clear to Auscultation Abdomen: Normal Bowel Sounds, Soft, No Tenderness Extremities: 2 + pitting edema in the left le Assessment/Plan Assessment: 82 year old man with multiple medical problems significant for heart failure with reduced ejection fraction, coronary artery disease status post CABG and 2 coronary stents, hypertension, hyperlipidemia, PAD status post left BKA, and atrial fibrillation on Eliquis seen for evaluation of progressively worsening lower extremity swelling. Problem list -Acute decompensated systolic congestive heart failure -CAD status post CABG/PCI with stent 2 (2001) -Atrial fibrillation, on Eliquis -Hypertension -Hyperlipidemia -GERD -Chronic kidney disease stage III -Former tobacco user Plan -Continue to monitor on telemetry -Telemetry monitoring -Strict ins and outs, daily weights -continue Lasix to 40 mg daily due to worsening kidney function - continue losartan 25 mg daily -Continue home meds: Amiodarone, Eliquis, aspirin, atorvastatin, Imdur, lisinopril -Hold oral Lasix while receiving intravenous, restart as tolerated -Cardiology recommendation appreciated for decompensated CHF -Vascular surgery consult recommended outpatient follow-up and no intervention for now -Pain control with acetaminophen -CHF diet -DVT prophylaxis with subcutaneous heparin -Full code Problem List: 1. CHF exacerbation Pain Ratin Pain Location: N/A Pain Goal: Remain pain free Pain Plan: Pathway [employer] Labs & Rationales: Selvin Davis 08/21/17 1124: Attending MD Review Statement Attending Statement Attending MD Statement: examined this patient, discuss w/resident/PA/GENERAL HOUSE WORKER, agreed w/resident/PA/GENERAL HOUSE WORKER, discussed with family, reviewed EMR data (avail), discussed with nursing, discussed with case mgmt, reviewed images, amended to note Attending Assessment/Plan: Acute on chronic systolic CHF exacerbation with mild renal insufficiecny- iv lasix 40 mg daily. His lung exam has improved since admission. Minimal basilar crackles now. Monitor input/output. Maintain Negative balance. Patient trial of dobutamine drip given but could not tolerate as went into uncontrolled afib. Now he is reluctant. Continue watch on his creatinine, electrolytes. will f/u on cardiology recommendations. Anticipate dishcarge soon on PO diuretics. Cardiac catheterization as per cardiology, however patient is reluctant to pursue any additional investifations for now.
--- NOTE | 2017-08-21 08:21 | PN- Student ---
Subjective Subjective: Follow-up for acute decompensated systolic heart failure. Patient reports that swelling improved again overnight but comes back in the morning when he starts moving around. He said during the night they started an IV medication ( dobutamine) that was a replacement for his Lisinopril. He said he felt an intense urgency to urinate, but when he tried to use the urinal he wasn't able to. He said he felt lightheaded, dizzy, and nauseous and asked them to stop the IV. He said if they tried again he will refuse. He also reports that he has not had a bowel movement in 3 days. This morning he denied any headache, dizziness, shortness of breath, palpitations, chest pain, pain in his legs, or difficulty urinating. His cough has improved this afternoon. Objective Objective: Vital Signs Date Time Temp Pulse Resp B/P B/P Pulse O2 O2 Flow FiO2 Mean Ox Delivery Rate 08/21 0655 97.6 66 20 114/62 96 Room Air 08/20 2355 97.4 106 20 106/42 94 Room Air 08/20 2340 97.5 110 20 112/48 94 Room Air 08/20 2325 97.5 90 20 122/50 93 Room Air 08/20 2310 97.8 80 18 90/58 96 Room Air / 2303 78 90/58 06/ 2200 98.7 60 22 102/52 94 Room Air 08/20 2102 94 Room Air 08/20 2017 60 102/52 /20 1459 97.6 95 18 122/62 96 Room Air / 1356 80 Physical Exam: General: AOx3, in no apparent distress, conversation appropriate Skin: pink, no rashes or ulcers noted HEENT: normocephalic, atraumatic, gross hearing intact Heart: Normal s1, s2 no MRG appreciated Lungs: no use of accessory muscles, lungs clear to auscultation bilaterally Abdomen: normoactive bowel sounsd, soft, non-tender MSK: L BKA with well-healed scar, RLL 1+ pitting edema with some skin discoloration Echo: CONCLUSIONS 1. Severely decreased EF of 20% with inferior akinesis. 2. Moderate left atrial enlargement. 3. Moderate mitral regurgitation. 4. Mild tricuspid regurgitation. 5. Mild aortic insufficiency. 6. Mild pulmonic insufficiency. 7. Trace pericardial effusion. 8. Pleural effusion is noted. Laboratory Tests 08/21 06 Chemistry Sodium (137 - 145 mmol/L) 141 Potassium (3.5 - 5.1 mmol/L) 4.2 Chloride (98 - 107 mmol/L) 100 Carbon Dioxide (22 - 30 mmol/L) 29 Anion Gap (5 - 16) 11 BUN (9 - 20 mg/dL) 44 H Creatinine (0.7 - 1.2 mg/dL) 2.2 H Estimated GFR (>60 ml/min) 29 L BUN/Creatinine Ratio (7 - 25 %) 20.0 Intake & Output 08/21 1600 08/21 0800 08/21 0000 Intake Total 600 142.1 240 Output Total 250 350 400 Balance 350 -207.9 -160 Intake, IV 22.1 Intake, Oral 600 120 240 Number 0 0 Bowel Movements Output, Urine 250 350 400 Patient 162 lb Weight Weight Bed scale Measurement Method Results Results: Laboratory Tests 08/21/17 0607: Anion Gap 11, Estimated GFR 29 L, BUN/Creatinine Ratio 20.0 08/20/17 0633: Anion Gap 13, Estimated GFR 29 L, BUN/Creatinine Ratio 16.4, Magnesium 1.8 08/19/17 0645: Anion Gap 16, Estimated GFR 30 L, BUN/Creatinine Ratio 13.8, CBC w Diff NO MAN DIFF REQ, RBC 4.85, MCV 85.0, MCH 28.0, MCHC 32.9 L, RDW 15.2 H, MPV 8.1, Gran % 75.1, Lymphocytes % 13.6 L, Monocytes % 7.1, Eosinophils % 3.6, Basophils % 0.6, Absolute Granulocytes 4.5, Absolute Lymphocytes 0.8 L, Absolute Monocytes 0.4, Absolute Eosinophils 0.2, Absolute Basophils 0 08/19/17 0310: Phosphorus 4.5, Magnesium 1.9, Troponin I 0.02 08/18/17 2055: Troponin I 0.02 08/18/17 1420: Anion Gap 14, Estimated GFR 34 L, BUN/Creatinine Ratio 14.7, Glucose 123 H, Calcium 9.2, Total Bilirubin 0.7, AST 19, ALT 29, Alkaline Phosphatase 85, Troponin I 0.01, [id number] Pept 2980 H, Total Protein 6.8, Albumin 3.9, Globulin 2.9, Albumin/Globulin Ratio 1.3, CBC w Diff NO MAN DIFF REQ, RBC 4.78, MCV 85.4, MCH 28.4, MCHC 33.3, RDW 14.9 H, MPV 7.8, Gran % 78.9 H, Lymphocytes % 12.4 L, Monocytes % 5.7, Eosinophils % 2.4, Basophils % 0.6, Absolute Granulocytes 5.3, Absolute Lymphocytes 0.8 L, Absolute Monocytes 0.4, Absolute Eosinophils 0.2, Absolute Basophils 0 Microbiology 08/18 1645 BLOOD: Blood Culture - RES 08/18 1630 BLOOD: Blood Culture - RES Assessment/Plan Assessment: Patient is an 82 year old male with a PMHx of A fib, HTN, CAD, CHF with EF of 20 % on 200mg amiodarone, s/p CABG (1996) and stenting (2001), L BKA (2005) who is being treated for acute exacerbation of systolic heart dysfunction with IV Lasix which was decreased from 40mg BID to once daily due to decreasing kidney function. BUN went from 29 to 44 in last 2 days, and Cr from 2.1 to 2.2. The patient was on dobutamine drip for 1 hour which was stopped due to adverse effects. An hour after the patient was on dobutamine drip, he went into A fib with tachycardia (148). His lower extremity edema and cough are improving. Plan: CHF exacerbation: IV lasix 40 mg daily Echo - 20% EF Cardiology consult - D/C dobutamine, start on 0.125mg digoxin every other day Check digoxin levels and kidney function in the a.m. Decreasing renal function: Reduced lasix from 40mg BID to daily Continue to monitor BUN, Cr, Na+ and K+ Atrial fibrillation: Continue 200mg amiodarone Continue 2.5mg eloquis BID Continue telemetry Cough: D/C Lisinopril, started on ARB Hyperlipidemia: Continue on atorvastatin 20mg
--- NOTE | 2017-08-21 11:18 | Discharge Summary ---
Visit Information Visit Dates Admission Date: 08/18/17 Discharge Date: 08/23/17 Hospital Course Course Attending Physician: Selvin Morales MD Primary Care Physician: Martita SETH,Jl Montoya Hospital Course: 82 year old man with past medical history HFrEF (LVEF 25-30%), CAD s/p CABG/ Stentsx2, PAD s/p left BKA, atrial fibrillation on eliquis, GERD, hypertension, hyperlipidemia, and former tobacoo use seen for evaluation of lower extremity swelling. ED course: Vitals Temp 98.2, HR 71-73, SBP 109-136, O2 95-96% on room air -CBC: WBC 6.7, Hgb 13.6, Hct 40.8, Plt 256 -BMP: Na 142, K 4.4, Cl 102, CO2 26, BUN 28, Creatinine 1.9, AG 14, Glucose 123 -LFT: normal limts -Misc: BNP 2980, Troponin I 0.01 -CXR: * Slight interval increase left-sided effusion with associated left basilar infiltrate or atelectasis. Trace right effusion. Persistent cardiomegaly. -EKG: Atrial fibrillation with atrial arrhythmia -Echo 06/05/17: 1. Severely decreased EF of 25-30% with regional wall motion abnormalities as noted above. 2. Trace mitral regurgitation. 3. Trace tricuspid regurgitation. 4. Trace aortic regurgitation. 5. Trace pulmonic regurgitation. 6. Mild pulmonary hypertension. Patient was admitted for treatment of the following conditions: -Acute decompensated systolic congestive heart failure: Patient was admitted to telemetry he was started on IV Lasix 40 twice daily, initially, his kidney function was worsening, Lasix test to be decreased to 40 mg IV daily and he was a started on digoxin 0.125 every other day (renal impairment dose) was diuresing well, on discharge he was switched to oral Lasix. He was advised to follow-up with his office copy selector as outpatient -CAD status post CABG/PCI with stent 2 (2001): suspicions that his previously described dental pain may be cardiac pain radiating toward his jaw. Behavioral Health Rn inclined to pursue a cardiac catheterization but the patient is not in agreement with this at this time. -Atrial fibrillation, on Eliquis, continued home dose -Hypertension: Patient was complaining of chronic dry cough, his lisinopril was discontinued and he was started on losartan 25 mg daily -Hyperlipidemia: He was treated with his home dose of atorvastatin -GERD: Treated with his home meds -CALEB on Chronic kidney disease: Most likely was due to poor oral intake in addition to CHF and Lasix, improved after reducing the dose of Lasix and starting digoxin -Former tobacco user Patient is full code DVT prophylaxis with subcutaneous heparin CHF diet Allergies: Coded Allergies: No Known Allergies (06/05/17) Disposition Summary Disposition Principal Diagnosis: CHF exacerbation Additional Diagnosis: A. fib on Eliquis Discharge Disposition: home or self care Discharge Instructions General Discharge Information Code Status: Full Code Patient's Diet: Heart healthy diet Patient's Activity: As tolerated Follow-Up Instructions/Appts: 1please follow-up with your PCP in 1 week of discharge 2please follow-up with your office copy selector in 1 week of discharge 3please take medications as advised Medications at Discharge Discharge Medications: Stop taking the following medications: Lisinopril (Prinivil) 5 MG TABLET ORAL DAILY Furosemide (Lasix) 20 MG TABLET ORAL DAILY Continue taking these medications: Isosorbide Mononitrate (Isosorbide Mononitrate ER) 60 MG TAB.ER.24H 1 Tablet ORAL Every night Comments: Last Taken: 08/23/17 Time:2100 Aspirin (Ecotrin*) 81 MG TABLET.DR 1 Tablet ORAL Every Morning Comments: Last Taken: 08/23/17 Time:0830 AM Apixaban (Eliquis) 2.5 MG TABLET 2.5 Milligram ORAL TWICE DAILY Qty = 60 Instructions: . Comments: Last Taken: 08/23/17 Time:0830 AM Calcium Carbonate (TUMS) 200 MG CALCIUM (500 MG) TAB.CHEW 1 Tablet ORAL DAILY as needed for GI upset Comments: NOT GIVEN Amiodarone (Cordarone) 200 MG TAB 1 Tablet ORAL DAILY Comments: Last Taken:08/23/17 Time:0830 AM Atorvastatin Calcium (Lipitor) 20 MG TABLET 1 Tablet ORAL DAILY Comments: Last Taken:08/22/17 Time:2100 Start taking the following new medications: Digoxin (Lanoxin) 125 MCG TABLET 0.125 Milligram ORAL EVERY 48 HOURS (Every 2 days) Qty = 30 No Refills Instructions: . Comments: Last Taken:08/23/17 Time:0830 AM Losartan Potassium (Losartan Potassium) 25 MG TABLET 25 Milligram ORAL DAILY Qty = 30 No Refills Instructions: . Comments: Last Taken:08/23/17 Time:0830 AM Furosemide (Lasix) 40 MG TABLET 1 Tablet ORAL DAILY Qty = 30 No Refills Instructions: . Comments: Last Taken:08/23/17 Time:0830 AM Copies To: Martita SETH,Jl Montoya Attending MD Review Statement Documenting Attending: Andrew SETH,Selvin Other Findings: Patient needs to follow up [facility] cardiology Dr Lantigua at discharge in 1-2 weeks of discharge.
[2017-08-21 14:57] VITALS: BP 118/62
--- NOTE | 2017-08-21 17:29 | PN- Cardiology ---
Subjective Subjective: * This patient was not able to tolerate the dobutamine drip that was started yesterday. He denies chest pain or shortness of breath but continues to have leg edema. * creatinine is 2.2 Objective Vital Signs and I&Os Vital Signs Date Time Temp Pulse Resp B/P B/P Pulse O2 O2 Flow FiO2 Mean Ox Delivery Rate 08/21 1600 Room Air Room Air 08/21 1457 97.5 58 16 118/62 97 08/21 0903 69 114/68 08/21 0903 69 114/68 08/21 0655 97.6 66 20 114/62 96 Room Air 08/20 2355 97.4 106 20 106/42 94 Room Air 08/20 2340 97.5 110 20 112/48 94 Room Air 08/20 2325 97.5 90 20 122/50 93 Room Air 08/20 2310 97.8 80 18 90/58 96 Room Air 08/20 2303 78 90/58 08/20 2200 98.7 60 22 102/52 94 Room Air 08/20 2102 94 Room Air 08/20 2017 60 102/52 Intake & Output 08/21 1600 08/21 0800 08/21 0000 08/20 1600 08/20 0800 08/20 0000 Intake Total 600 142.1 240 320 200 395 Output Total 250 350 400 800 150 975 Balance 350 -207.9 -160 -480 50 -580 Intake, IV 22.1 20 20 Intake, Oral 600 120 240 300 200 375 Number 0 0 0 Bowel Movements Output, Urine 250 350 400 800 150 975 Patient 162 lb Weight Weight Bed scale Measurement Method Physical Exam: General: WD/obese male in NAD; alert and oriented x 3 HEENT: NC/AT, PERRL, EOMI Neck: no JVD, no carotid bruit Heart: RRR with 2/6 systolic murmur Lungs: clear bilaterally Extremities: 2+ edema on right, left BKA Assessment/Plan Assessment/Plan * This patient has a low EF. His cardiac cath from 2004 shows a total chronic occlusion of the mid LAD and proximal RCA with a 60% ostial stenosis of the LCX. SVG's to the D1 and RCA are both totally occluded. A radial artery graft to the OM1 was patent. The BOO to the LAD is patent with severe disease distally in the LAD. His EF in 2004 was 25%. Medical management was pursued. * This patient has paroxysmal atrial fibrillation with increased heart rate. I suspect he has frequent paroxysms of this dysrhythmia which ultimately results in lightheadedness and at times chest pain. He is now on Amiodarone and is in a sinus rhythm on this medication. Transient atrial fibrillation was noted during administration of a dobutamine drip yesterday and this medication was stopped. I think it is prudent to try and maintain a sinus rhythm in this patient who does not tolerate tachycardia well and is reluctant to be on chronic anticoagulation. In addition, he does have a low EF and renal dysfunction. Continue Amiodarone 200mg daily and Eliquis 2.5mg BID. * This patient has evidence of myocardial ischemia. I am suspicious that his previously described dental pain may be cardiac pain radiating toward his jaw. I would be inclined to pursue a cardiac catheterization when his creatinine is back to baseline if the patient is amenable to it. For now continue his Isosorbide, aspirin at 81mg daily, ARB and statin. * This patient has decompensated CHF likely due to his ischemic heart disease and low EF. Begin renal dose digoxin at 0.125mg every other day. His digoxin dose will need to by monitored closely due to his renal insufficiency and due to concurrent use of Amiodarone which can increase its level. Continue to diurese with Lasix 40mg IV BID with continued monitoring of his BUN, creatinine and potassium. Continue telemetry? Yes
[2017-08-21 21:57] VITALS: BP 110/66
[2017-08-22 07:13] VITALS: BP 114/66
--- NOTE | 2017-08-22 08:30 | PN- Housestaff ---
Jrody SETH,Maria G 08/22/17 0829: Subjective Follow-up For: -Acute decompensated systolic congestive heart failure -CAD status post CABG/PCI with stent 2 (2001) -Atrial fibrillation, on Eliquis Tele-Events Since Last Visit: Sinus bradycardia, first-degree AV block, 53, 0.16, 0.32, no overnight event Subjective: The patient was seen and examined at bedside, reports improvement of his dry cough, still on IV Lasix 40 mg daily, his urine output is less than expected because the patient was voiding in the toilet instead of the urine, was advised to use a urinal for proper urine output assessment. Was started on digoxin yesterday, the level is less than 0.4 Review of Systems Constitutional: Reports: see HPI. Objective Last 24 Hrs of Vital Signs/I&O Vital Signs Date Time Temp Pulse Resp B/P B/P Pulse O2 O2 Flow FiO2 Mean Ox Delivery Rate 08/22 0752 66 118/70 08/22 0751 66 118/70 08/22 0713 98.2 54 18 114/66 94 Room Air 08/22 0000 93 Room Air 08/21 2157 97.4 57 16 110/66 93 Room Air 08/21 2056 57 110/66 08/21 1752 58 118/56 08/21 1600 Room Air Room Air 08/21 1457 97.5 58 16 118/62 97 Intake & Output 08/22 1600 08/22 0800 08/22 0000 Intake Total 720 Output Total 200 500 Balance -200 220 Intake, Oral 720 Number 3 Bowel Movements Output, Urine 200 500 Patient 162 lb Weight Weight Bed scale Measurement Method Physical Exam General Appearance: Alert, Oriented X3, Cooperative, No Acute Distress HEENT: Atraumatic, PERRLA, EOMI, Mucous Membr. moist/pink Cardiovascular: Normal S1, Normal S2 Lungs: Clear to Auscultation Abdomen: Normal Bowel Sounds, Soft, No Tenderness Neurological: Normal Speech, Strength at 5/5 X4 Ext, Normal Tone, Sensation Intact, Cranial Nerves 3-12 NL Extremities: No Clubbing, No Cyanosis, No Edema Assessment/Plan Assessment: 82 year old man with multiple medical problems significant for heart failure with reduced ejection fraction, coronary artery disease status post CABG and 2 coronary stents, hypertension, hyperlipidemia, PAD status post left BKA, and atrial fibrillation on Eliquis seen for evaluation of progressively worsening lower extremity swelling. Problem list -Acute decompensated systolic congestive heart failure -CAD status post CABG/PCI with stent 2 (2001) -Atrial fibrillation, on Eliquis -Hypertension -Hyperlipidemia -GERD -CALEB on Chronic kidney disease stage III (renal function is improving today creatinine 1.9 ) -Former tobacco user Plan -Continue to monitor on telemetry -Telemetry monitoring -Strict ins and outs, daily weights -continue Lasix to 40 mg daily due to worsening kidney function - continue losartan 25 mg daily -Continue digoxin 0.125 every other day, monitor digoxin level -Continue home meds: Amiodarone, Eliquis, aspirin, atorvastatin, Imdur, lisinopril -Hold oral Lasix while receiving intravenous, restart as tolerated -Cardiology recommendation appreciated for decompensated CHF -Vascular surgery consult recommended outpatient follow-up and no intervention for now Continue to monitor kidney function Avoid nephrotoxic -Pain control with acetaminophen -CHF diet -DVT prophylaxis with subcutaneous heparin -Full code Problem List: 1. CHF exacerbation Pain Ratin Pain Location: N/A Pain Goal: Remain pain free Pain Plan: Pathway [employer] Labs & Rationales: Selvin Oliver 08/22/17 1121: Attending MD Review Statement Attending Statement Attending MD Statement: examined this patient, discuss w/resident/PA/WASTEWATER TREATMENT ENGINEER, agreed w/resident/PA/WASTEWATER TREATMENT ENGINEER, discussed with family, reviewed EMR data (avail), discussed with nursing, discussed with case mgmt, reviewed images, amended to note Attending Assessment/Plan: Acute on chronic systolic CHF exacerbation with mild renal insufficiecny which is stabilsiing Cr 1.9- iv lasix 40 mg daily. Added digoxin yesterday low dose. His lung exam has improved since admission. Minimal basilar crackles now. Monitor input/output. Maintain Negative balance. Continue watch on his creatinine, electrolytes, obtain digoxin level. will f/u on cardiology recommendations. Anticipate dishcarge soon on PO diuretics and po digoxin. Cardiac catheterization as per cardiology, however patient is reluctant to pursue any additional investifations for now.
[2017-08-22] MEDS ORDERED: LASIX40 M1 PO (13:40)
[2017-08-22] MEDS ORDERED: LANOXIN125 MCG PO (13:41)
[2017-08-22 15:27] VITALS: BP 122/68
--- NOTE | 2017-08-22 16:40 | PN- Cardiology ---
Subjective Subjective: * Patient has resolution of his dry cough off Lisinopril and now reports a more congested cough. No chest discomfort or shortness of breath. * sinus rhythm with 1 degree AV block * creatinine is 1.9 Objective Vital Signs and I&Os Vital Signs Date Time Temp Pulse Resp B/P B/P Pulse O2 O2 Flow FiO2 Mean Ox Delivery Rate 08/22 1600 Room Air 08/22 1527 98.1 68 18 122/68 94 Room Air 08/22 0752 66 118/70 08/22 0751 66 118/70 08/22 0713 98.2 54 18 114/66 94 Room Air 08/22 0000 93 Room Air 08/21 2157 97.4 57 16 110/66 93 Room Air 08/21 2056 57 110/66 08/21 1752 58 118/56 Intake & Output 08/22 1600 08/22 0800 08/22 0000 08/21 1600 08/21 0800 08/21 0000 Intake Total 500 720 600 142.1 240 Output Total 600 200 500 250 350 400 Balance -100 -200 220 350 -207.9 -160 Intake, IV 22.1 Intake, Oral 500 720 600 120 240 Number 1 3 0 0 Bowel Movements Output, Urine 600 200 500 250 350 400 Patient 162 lb 162 lb 162 lb Weight Weight Bed scale Bed scale Measurement Method Physical Exam: General: WD/obese male in NAD; alert and oriented x 3 HEENT: NC/AT, PERRL, EOMI Neck: no JVD, no carotid bruit Heart: RRR with 2/6 systolic murmur Lungs: clear bilaterally Extremities: 2+ edema on right, left BKA Assessment/Plan Assessment/Plan * This patient has a low EF. His cardiac cath from 2004 shows a total chronic occlusion of the mid LAD and proximal RCA with a 60% ostial stenosis of the LCX. SVG's to the D1 and RCA are both totally occluded. A radial artery graft to the OM1 was patent. The BOO to the LAD is patent with severe disease distally in the LAD. His EF in 2004 was 25%. Medical management was pursued. * This patient has paroxysmal atrial fibrillation with increased heart rate. I suspect he has frequent paroxysms of this dysrhythmia which ultimately results in lightheadedness and at times chest pain. He is now on Amiodarone and is in a sinus rhythm on this medication. Transient atrial fibrillation was noted during administration of a dobutamine drip yesterday and this medication was stopped. I think it is prudent to try and maintain a sinus rhythm in this patient who does not tolerate tachycardia well and is reluctant to be on chronic anticoagulation. In addition, he does have a low EF and renal dysfunction. Continue Amiodarone 200mg daily and Eliquis 2.5mg BID. * This patient has evidence of myocardial ischemia. I am suspicious that his previously described dental pain may be cardiac pain radiating toward his jaw. I would be inclined to pursue a cardiac catheterization when his creatinine is back to baseline if the patient is amenable to it. For now continue his Isosorbide, aspirin at 81mg daily, ARB and statin. * This patient has decompensated CHF likely due to his ischemic heart disease and low EF. Continue renal dose digoxin at 0.125mg every other day. His digoxin dose will need to by monitored closely due to his renal insufficiency and due to concurrent use of Amiodarone which can increase its level. Change Lasix to 40mg PO BID. Obtain a chest X-ray. Continued monitoring of his BUN, creatinine and potassium. Continue telemetry? Yes
--- NOTE | 2017-08-22 21:52 | RADIOLOGY REPORT ---
EXAMINATION: XR PORTABLE CHEST CLINICAL INFORMATION: Chest pain. COMPARISON: Chest x-ray 08/18/2017 TECHNIQUE: Portable frontal view of the chest was obtained. 6:14 PM FINDINGS: Status post median sternotomy. Heart size is enlarged. There is a moderate volume left pleural effusion at the left lung base causing blunting of the left costophrenic angle and silhouetting of diaphragm. Underlying left basilar atelectasis /consolidation may be present. No right pleural effusion. No pulmonary vascular congestion. Compared to the prior chest x-ray there has been no change. IMPRESSION: Cardiomegaly. Status post median sternotomy. Persistent dense left lung base due to left pleural effusion and possible underlying infiltrate /atelectasis.
[2017-08-22 22:21] VITALS: BP 114/70
--- NOTE | 2017-08-23 09:07 | PN- Housestaff ---
See Addendum Subjective Follow-up For: -Acute decompensated systolic congestive heart failure -CAD status post CABG/PCI with stent 2 (2001) -Atrial fibrillation, on [facility] Tele-Events Since Last Visit: Sinus rhythm and sinus bradycardia heart rate ranging in 50s-60s Subjective: Seen and examined. Sitting comfortably. Awaiting discharged home. Denies any shortness of breath and reports her lower extremity swelling decreased Review of Systems Constitutional: Reports: see HPI. Objective Last 24 Hrs of Vital Signs/I&O Vital Signs Date Time Temp Pulse Resp B/P B/P Pulse O2 O2 Flow FiO2 Mean Ox Delivery Rate 08/23 0825 63 116/60 08/23 0824 63 116/60 08/23 0824 63 116/60 08/23 0000 Room Air 08/22 2221 97.5 67 22 114/70 92 08/22 2104 59 114/58 08/22 1600 Room Air 08/22 1527 98.1 68 18 122/68 94 Room Air Intake & Output 08/23 1600 08/23 0800 08/23 0000 Intake Total 250 350 Output Total 425 330 Balance -175 20 Intake, Oral 250 350 Output, Urine 425 330 Patient 174 lb Weight Weight Bed scale Measurement Method Physical Exam General Appearance: Alert, Oriented X3 Cardiovascular: Normal S1, Normal S2 Lungs: Clear to Auscultation Abdomen: Soft, No Tenderness Neurological: Normal Speech Current Medications: Current Medications Sig/Marco A Start time Last Medication Dose Route Stop Time Status Admin Acetaminophen 650 MG Q6P PRN 08/18 1800 AC PO Amiodarone HCl 200 MG DAILY 08/19 899 AC 08/23 PO 0824 Apixaban 2.5 MG BID 08/18 2099 AC 08/23 PO 0821 Aspirin Buffered 81 MG QAM 08/19 09 AC 08/23 PO 0821 Atorvastatin Calcium 20 MG AT BEDTIME 08/18 2100 AC 08/22 PO 2102 Benzonatate 100 MG TID 08/20 09 AC 08/23 PO 0821 Bisacodyl 5 MG DAILY PRN 08/21 1000 AC 08/21 PO 1135 Digoxin 0.125 MG Q48 08/23 09 AC 08/23 PO 0825 Furosemide 40 MG 7:30 AM, & 4:30 PM 08/23 0730 AC 08/23 PO 0824 Furosemide 40 MG DAILY 08/21 0900 DC 06/22 IV 0752 Isosorbide 60 MG QPM 08/18 2100 AC 08/22 Mononitrate PO 210 Losartan Potassium 25 MG DAILY 08/21 0900 AC 08/23 PO 0824 Polyethylene Glycol 17 GM DAILY 08/21 1000 AC 08/21 PO 1135 Last 24 Hrs of Lab/Sameer Results Last 24 Hrs of Labs/Mics: Laboratory Tests 08/23/17 0600: Anion Gap 11, Estimated GFR 34 L, BUN/Creatinine Ratio 21.1, Digoxin < 0.4 L Assessment/Plan Assessment: 82 year old man with multiple medical problems significant for heart failure with reduced ejection fraction, coronary artery disease status post CABG and 2 coronary stents, hypertension, hyperlipidemia, PAD status post left BKA, and atrial fibrillation on Eliquis seen for evaluation of progressively worsening lower extremity swelling. Problem list -Acute decompensated systolic congestive heart failure -CAD status post CABG/PCI with stent 2 (2001) -Atrial fibrillation, on Eliquis -Hypertension -Hyperlipidemia -GERD -CALEB on Chronic kidney disease stage III (renal function is improving today creatinine 1.9 ) -Former tobacco user Plan -Continue to monitor on telemetry -Telemetry monitoring -Strict ins and outs, daily weights -continue Lasix to 40 mg daily due to worsening kidney function -continue losartan 25 mg daily -Continue digoxin 0.125 every other day, monitor digoxin level -Continue home meds: Amiodarone, Eliquis, aspirin, atorvastatin, Imdur, lisinopril -Hold oral Lasix while receiving intravenous, restart as tolerated -Cardiology recommendation appreciated for decompensated CHF -Vascular surgery consult recommended outpatient follow-up and no intervention for now Continue to monitor kidney function Avoid nephrotoxic -Pain control with acetaminophen -CHF diet -DVT prophylaxis with subcutaneous heparin -Full code Problem List: 1. CHF exacerbation 2. Lower extremity edema Pain Ratin Pain Location: na Pain Goal: Pain 4 or less Pain Plan: prn Tomorrow's Labs & Rationales: none
--- NOTE | 2017-08-23 11:34 | PN- Cardiology ---
Subjective Subjective: The patient reports that he is feeling well. His cough has resolved. No chest pain. No shortness of breath. No palpitations. Objective Vital Signs and I&Os Vital Signs Date Time Temp Pulse Resp B/P B/P Pulse O2 O2 Flow FiO2 Mean Ox Delivery Rate 08/23 0825 63 116/60 08/23 0824 63 116/60 08/23 0824 63 116/60 08/23 0000 Room Air 08/22 2221 97.5 67 22 114/70 92 08/22 2104 59 114/58 08/22 1600 Room Air 08/22 1527 98.1 68 18 122/68 94 Room Air Intake & Output 08/23 1600 08/23 0800 08/23 0000 08/22 1600 08/22 0800 08/22 0000 Intake Total 250 350 500 720 Output Total 425 330 600 200 500 Balance -175 20 -100 -200 220 Intake, Oral 250 350 500 720 Number 1 3 Bowel Movements Output, Urine 425 330 600 200 500 Patient 174 lb 162 lb 162 lb Weight Weight Bed scale Bed scale Measurement Method Physical Exam: Gen: NAD HEENT: normal Lungs: clear to auscultation, normal resp. effort Heart: RRR, S1, S2, 2/6 systolic murmur Abdomen: Soft, nontender, no masses Extremities: 1+ edema, left BKA Neuro: Alert and oriented x 3, cranial nerves intact Current Medications: Current Medications Sig/Marco A Start time Last Medication Dose Route Stop Time Status Admin Acetaminophen 650 MG Q6P PRN 08/18 1800 AC PO Amiodarone HCl 200 MG DAILY 08/19 899 AC 08/23 PO 0824 Apixaban 2.5 MG BID 08/18 2099 AC 08/23 PO 0821 Aspirin Buffered 81 MG QAM 08/19 09 AC 08/23 PO 0821 Atorvastatin Calcium 20 MG AT BEDTIME 08/18 2099 AC 08/22 PO 210 Benzonatate 100 MG TID 08/20 899 AC 08/23 PO 0821 Bisacodyl 5 MG DAILY PRN 08/21 1000 AC 08/21 PO 1135 Digoxin 0.125 MG Q48 08/23 09 AC 08/23 PO 0825 Furosemide 40 MG 7:30 AM, & 4:30 PM 08/23 0730 AC 08/23 PO 0824 Furosemide 40 MG DAILY 08/21 0900 DC 08/22 IV 0752 Isosorbide 60 MG QPM 08/18 2100 AC 08/22 Mononitrate PO 2104 Losartan Potassium 25 MG DAILY 08/21 0900 AC 08/23 PO 0824 Polyethylene Glycol 17 GM DAILY 08/21 1000 AC 08/21 PO 1135 Results Last 48 Hrs of Labs/Mics: Laboratory Tests 08/23/17 0600: Anion Gap 11, Estimated GFR 34 L, BUN/Creatinine Ratio 21.1, Digoxin < 0.4 L 08/22/17 0645: Anion Gap 14, Estimated GFR 34 L, BUN/Creatinine Ratio 24.7, Digoxin < 0.4 L Assessment/Plan Assessment/Plan Assessment: 1. CAD, status post CABG 2. Atrial fibrillation 3. Hypertension 4. Acute on chronic HFrEF Plan: * Continue current cardiac medications. * Likely ready for discharge today. * Follow up with Dr. Lantigua in 1 week. Continue telemetry? Yes
[2017-08-23] MEDS ORDERED: LASIX40 M1 PO (14:28)
[2017-08-23] MEDS ORDERED: LOSARTAN POTASS25 M1 PO (14:28)
[2017-08-23] MEDS ORDERED: LANOXIN125 MCG PO (14:28)
[2017-08-23 14:40] VITALS: BP 122/68; BP 128/74
== END 2017-08-23 15:33 | DRG 291 ==
LOC: ERH 11:55 → 1NO 16:36 → ERHI 16:36 → ENTRNSPT 18:45 → EDTRNSPT 18:58 → EDTRNSPTSTS 18:58 → 1NO 19:04 → CMPTRNSPT 19:17 → 1NO 08-19 07:45 → ENPENDDIS 08-23 14:24 → 1NO 08-23 15:33
PROVIDERS: Physician Assistant; Student in an Organized Health Care Education/Training Program
DX: I13.0 Hypertensive heart and chronic kidney disease with heart failure and stage 1 through stage 4 chronic kidney disease, or unspecified chronic kidney disease (principal); I50.23 Acute on chronic systolic (congestive) heart failure; Z79.01 Long term (current) use of anticoagulants; I73.9 Peripheral vascular disease, unspecified; N18.3 Chronic kidney disease, stage 3 (moderate); Z87.891 Personal history of nicotine dependence; I25.10 Atherosclerotic heart disease of native coronary artery without angina pectoris; Z98.61 Coronary angioplasty status; Z89.512 Acquired absence of left leg below knee; K21.9 Gastro-esophageal reflux disease without esophagitis; E78.5 Hyperlipidemia, unspecified; I25.2 Old myocardial infarction; Z91.81 History of falling; Z95.1 Presence of aortocoronary bypass graft; I48.0 Paroxysmal atrial fibrillation; I44.0 Atrioventricular block, first degree
CPT/HCPCS: 1NP; 1NSP; 36592; 71045; 71046; 82436; 87040; 93005; 93010; 93306; 93970; J0713; J1644; J1940